=== PATIENT | male | born 1945 | race Caucasian/White ===

== ENCOUNTER 2023-04-12 10:30 | Inpatient (IN) | payer MEDICARE, SELFPAY ==
[2023-04-11] VITALS (11 sets, daily range): BP systolic 125–146; BP diastolic 63–71; PULSE 71–95; RESP 16–18; TEMP 36.8–36.9; O2SAT 90–93; BMI 52.1
--- NOTE | 2023-04-11 16:30 | US_ITS ---
The [address] [address] Patient Name: LUCIANA BUENROSTRO MRN: [id number] date: 1945 Sex: M Assigned Patient Location: MS Current Patient Location: MS Accession/Order Number: [id number] Exam Date: 04/11/2023 16:45 Report Date: 04/11/2023 17:17 At the request of: GEOVANNA FARLEY Procedure: US venous doppler LE BI Ultrasound venous duplex scan right lower extremity CLINICAL: Edema TECHNIQUE: Lan-scale, color-flow, and Spectral Doppler examination of the right lower extremity were performed with and without provocative maneuvers. FINDINGS: Sonographic examination of the right lower extremity deep venous system to include the common femoral, superficial femoral and popliteal veins, demonstrates normal compressibility, color-flow, respiratory variation, and augmentation. The origin and proximal segment of the greater saphenous vein also demonstrates normal compression and color-flow. There is normal color-flow in the peroneal, posterior tibial, and anterior tibial veins. US/US venous doppler LE BI IMPRESSION: 1. No deep venous thrombosis of the right lower extremity. 2. There is evidence of edema in the soft tissues of the calf and ankle. Ultrasound venous duplex scan left lower extremity CLINICAL: Edema TECHNIQUE: Lan-scale, color-flow, and Spectral Doppler examination of the left lower extremity were performed with and without provocative maneuvers. FINDINGS: Sonographic examination of the left lower extremity deep venous system to include the common femoral, superficial femoral and popliteal veins, demonstrates normal compressibility, color-flow, respiratory variation, and augmentation. The origin and proximal segment of the greater saphenous vein also demonstrates normal compression and color-flow. There is normal color-flow in the peroneal, posterior tibial, and anterior tibial veins. IMPRESSION: 1. No deep venous thrombosis of the left lower extremity. 2. There is evidence of edema in the soft tissues of the calf and ankle. Electronically authenticated by: RAFAT FONTAINE Date: 04/11/2023 17:17
[2023-04-11] MEDS: BUMETANIDE 10 MG in 0.9 % SODIUM CHLORIDE 160 ML 2.5 MG IV (17:38)
[2023-04-11 17:58] LABS: Free T3 2.06 pg/mL (2.18-3.98); Magnesium 1.6 mg/dL (1.8-2.4); Troponin I High Sensitivity 9.4 pg/mL (4.0-76.1)
[2023-04-11 17:59] LABS: Thyroid Stimulating Hormone 1.024 uIU/mL (0.358-3.740)
--- NOTE | 2023-04-11 19:42 | P.HP_ITS ---
H&P: HPI History of Present Illness Chief complaint: FLUID OVERLOAD Narrative: Due to call from the family that patient had not consistently been taking all of his diuretics.room They are more on an as-needed basis but legs have been increasing in swelling over the last several days. Recommended to ER for more rapid evaluation. Seen in the ER at an outside facility, given Lasix IV with 1 L of urine output. Discussed with family options for going back to the rehab facility versus continued admission. He has had multiple admissions for this in the past and usually requires a 2 to 3-day hospital stay to improve his diuresis and not affect his kidney function without change in medication Review of Systems ROS Status of ROS 10 or more systems reviewed and unremarkable except as noted in history and below [facility] Medical History (Updated 04/11/23 @ 23:07 by Ernesto Bundy MD) Surgical History (Updated 04/11/23 @ 17:30 by Zahra Caban) Family History (Updated 04/11/23 @ 17:32 by Zahra Caban) Other Family history of CHF (congestive heart failure) Family history of cancer Family history of diabetes mellitus Family history of hypertension Family history of stroke Social History Do you think of yourself as: straight/heterosexual Gender Identity: male Meds Home Medications and Allergies Home Medications Medication Instructions Recorded Confirmed Type acetaminophen 500 mg capsule 1,000 mg PO Q6H PRN fever or pain 04/11/23 04/11/23 History amlodipine 10 mg tablet 10 mg PO DAILY 04/11/23 04/11/23 History apixaban 5 mg tablet (Eliquis) 5 mg PO BID 04/11/23 04/11/23 History aspirin 81 mg capsule 81 mg PO DAILY 04/11/23 04/11/23 History atorvastatin 20 mg tablet 20 mg PO BEDTIME 04/11/23 04/11/23 History bisacodyl 5 mg tablet 5 mg PO BID PRN constipation 04/11/23 04/11/23 History cetirizine 10 mg capsule 10 mg PO DAILY 04/11/23 04/11/23 History cholecalciferol (vitamin D3) 25 2,000 unit PO DAILY 04/11/23 04/11/23 History mcg (1,000 unit) capsule duloxetine 30 mg capsule,delayed 30 mg PO DAILY 04/11/23 04/11/23 History release ferrous sulfate 325 mg (65 mg 325 mg PO DAILY 04/11/23 04/11/23 History iron) tablet (Feosol) glipizide 10 mg tablet 10 mg PO BID 04/11/23 04/11/23 History hydralazine 100 mg tablet 100 mg PO TID 04/11/23 04/11/23 History insulin glargine 100 unit/mL (3 10 unit subcut BID 04/11/23 04/11/23 History mL) subcutaneous pen insulin lispro 100 unit/mL 1 sliding scale dose subcut 04/11/23 04/11/23 History subcutaneous pen (Humalog KwikPen USEASDIRECTD (U-100) Insulin) labetalol 100 mg tablet 100 mg PO BID 04/11/23 04/11/23 History lisinopril 20 mg tablet 20 mg PO DAILY 04/11/23 04/11/23 History metformin 1,000 mg tablet 1,000 mg PO BID 04/11/23 04/11/23 History multivitamin (Daily Multi-Vitamin 1 tab PO DAILY 04/11/23 04/11/23 History tablet) nystatin 100,000 unit/gram topical 1 applic topical DAILY 04/11/23 04/11/23 History powder (Nyamyc) omeprazole 20 mg tablet,delayed 20 mg PO DAILY 04/11/23 04/11/23 History release oxybutynin chloride 5 mg tablet 5 mg PO DAILY 04/11/23 04/11/23 History oxycodone 5 mg tablet 5 mg PO Q12H PRN pain 04/11/23 04/11/23 History pioglitazone 30 mg tablet (Actos) 30 mg PO DAILY 04/11/23 04/11/23 History potassium chloride 10 mEq 20 meq PO DAILY 04/11/23 04/11/23 History tablet,extended release(part/cryst) (Klor-Con M) pregabalin 75 mg capsule (Lyrica) 75 mg PO DAILY 04/11/23 04/11/23 History spironolactone 25 mg tablet 25 mg PO DAILY 04/11/23 04/11/23 History (Aldactone) timolol maleate 0.5 % eye drops 1 drp ophthalmic (eye) DAILY 04/11/23 04/11/23 History Allergies Allergy/AdvReac Type Severity Reaction Status Date / Time Sulfa (Sulfonamide Allergy Mild Verified 04/11/23 17:34 Antibiotics) Exam Constitutional Vital Signs, click to edit/add: Last Vital Signs Temp 98.2 F 04/11/23 17:25 Pulse 95 H 04/11/23 17:25 Resp 16 04/11/23 17:25 BP 146/71 H 04/11/23 17:38 Pulse Ox 90 L 04/11/23 17:25 O2 Del Method Room Air 04/11/23 17:25 Documenting provider has reviewed patient's vital signs: yes Common normals: no apparent distress HENMT Common normals: normocephalic Respiratory Common normals: normal respiratory effort, no retractions and clear to auscultation bilaterally Cardio Common normals: regular rate and no murmurs GI Common normals: Normal to inspection, nondistended, normoactive bowel sounds present Extremity Common normals: abnormal to inspection (3-4+ Edema bilat legs) Assessment and Plan Assessment and Plan (1) Afib: (2) Diabetes: (3) Fluid overload: Plan Fluid with overload-we will plan Bumex drip as this has been effective for him in the past without affecting blood pressure. Or kidney function. Serial labs. NIDDM-poorly controlled-Continue with home medications plus sliding scale Hypertension-continue with home medications History of DVT-On blood thinners currently. Maintain. Hypomagnesemia-May need supplemented Morbid obesity-diet management Start patient office observation-May need inpatient status depending on effectiveness is over the initial Bumex drip. With the extensiveness of his current swelling likely 2 to 3 days will be more logical
[2023-04-11 20:12] LABS: Glucometer 108 mg/dL (74-106)
[2023-04-11] MEDS: FERROUS SULFATE 325 MG TABLET PO (20:33)
[2023-04-11] MEDS: LABETALOL HCL 100 MG TABLET PO (20:33)
[2023-04-11] MEDS: GLIPIZIDE 10 MG TABLET PO (20:33)
[2023-04-11] MEDS: PROSTAT 15 GM PROTEIN/100 CAL 30 ML LIQUID PACKET PO (20:33)
[2023-04-11] MEDS: POTASSIUM CHLORIDE 10 MEQ ER TABLET 20 MEQ PO (20:33)
[2023-04-11] MEDS: APIXABAN 5 MG TABLET PO (20:33)
[2023-04-11] MEDS: ACETAMINOPHEN 500 MG TABLET 1000 MG PO (20:35)
[2023-04-11] MEDS: HYDRALAZINE HCL 50 MG TABLET 100 MG PO (21:30)
[2023-04-11] MEDS: ATORVASTATIN CALCIUM 20 MG TABLET PO (21:30)
[2023-04-11] MEDS: OXYCODONE HCL 5 MG TABLET PO (21:34)
[2023-04-12] VITALS (19 sets, daily range): BP systolic 118–123; BP diastolic 63–65; PULSE 66–90; RESP 18–20; TEMP 36.4–36.9; O2SAT 90–95
[2023-04-12 04:39] LABS: Basophils Percent Auto 0.7 % (0.2-2.0); Eosinophils Absolute Auto 0.2 10^3/uL (0.0-0.7); Eosinophils Percent Auto 2.8 % (0.9-7.0); Hematocrit 27.9 % (42.0-54.0); Hemoglobin 8.9 g/dL (14.0-18.0); Immature Granulocytes Abs Auto 0.02 10^3/uL (0.00-0.03); Immature Granulocytes Pct Auto 0.3 % (0.0-0.5); Lymphocytes Absolute Auto 0.9 10^3/uL (1.2-3.8); Lymphocytes Percent Auto 14.8 % (20.5-60.0); Mean Corpuscular HGB Conc 31.9 g/dL (29.9-35.2); Mean Corpuscular Volume 97.2 fL (80.0-94.0); Monocytes Absolute Auto 0.6 10^3/uL (0.3-0.8); Monocytes Percent Auto 10.6 % (1.7-12.0); Neutrophils Absolute Auto 4.1 10^3/uL (1.4-6.5); Neutrophils Percent Auto 70.8 % (43.0-75.0); Platelet Count 314 10^3/uL (150-450); Red Blood Count 2.87 10^6/uL (4.70-6.10); Red Cell Distribution Width 14.2 % (11.0-15.0); White Blood Count 5.8 10^3/uL (4.0-11.0)
[2023-04-12 05:09] LABS: Anion Gap 12.3; BUN Creatinine Ratio 24.1; Calcium 9.4 mg/dL (8.5-10.1); Carbon Dioxide 30.4 mmol/L (21.0-32.0); Chloride 103 mmol/L (98-107); Estimated GFR (African America 59 (>=60); Estimated GFR (Non-African Ame 49 (>=60); Glucose 127 mg/dL (74-106); Magnesium 1.4 mg/dL (1.8-2.4); Potassium 4.7 mmol/L (3.5-5.1); Sodium 141 mmol/L (136-145)
[2023-04-12] MEDS: HYDRALAZINE HCL 50 MG TABLET 100 MG PO ×3 (05:44→21:26)
[2023-04-12] MEDS: OMEPRAZOLE 20 MG CAPSULE.DR PO (05:44)
[2023-04-12] MEDS: LIOTHYRONINE SODIUM 5 MCG TABLET PO (06:44)
--- NOTE | 2023-04-12 06:58 | CA_ITS ---
Patient: LUCIANA BUENROSTRO Exam Date: 04/12/2023 : 1945 Gender:M Ordering : DR GEOVANNA FARLEY . Admission #: [id number] Family : Order #: [id number] CLICK HERE TO VIEW EXAM ECHOCARDIOGRAM REPORT PROCEDURE: CA ECHO DOPPLER COMPLETE INDICATIONS: Dyspnea, edema, congestive heart failure, atrial fibrillation, hypertension COMPARISON: None. DESCRIPTION: COMPLETE ECHOCARDIOGRAM Real-time transthoracic echocardiography with 2D, M-mode, spectral and color flow Doppler performed. QUALITY: Technical quality was adequate. LEFT VENTRICLE: Normal chamber size. Mild concentric left ventricular hypertrophy. Normal systolic function. LV EF: Normal left ventricular ejection fraction, ( 55%). DIASTOLIC: Not adequately assessed due to heart rhythm. ATRIAL SEPTUM: Visually appears intact. LEFT ATRIUM: Severe dilatation. RIGHT ATRIUM: Moderate dilatation. RIGHT VENTRICLE: Mild dilatation. Normal systolic function. TRICUSPID VALVE: Normal mobility and thickness. No stenosis with trivial regurgitation. Unable to assess right-sided pressures due to lack of measurable tricuspid regurgitation. MITRAL VALVE: Normal mobility and thickness. No evidence of mitral valve stenosis. Mild mitral annular calcification. Mild mitral regurgitation. AORTIC VALVE: Normal trileaflet appearance. Mildly calcified aortic valve. Mildly diminished mobility. No evidence of aortic valve stenosis. DVI 0.7. No aortic regurgitation. AORTIC ROOT: Normal diameter and appearance. PULMONIC VALVE: Normal thickness and mobility. No stenosis. No regurgitation. PERICARDIUM: No evidence of pericardial effusion. IVC: IVC is dilated (2.3 cm) with no collapse. PLEURA: CONCLUSION: 1. Mild concentric left ventricular hypertrophy with normal systolic function. LVEF is 55%. 2. Mild right ventricular dilatation with normal systolic function. 3. Moderate to severe biatrial dilatation. 4. Mild mitral regurgitation. 5. Unable to assess right-sided pressures due to lack of measurable tricuspid regurgitation. Adult Echocardiography Procedure Report Left Ventricle LVEDD (3.7 - 5.6 cm): 5.72 cm LVESD (2.2 - 4.0 cm): 4.44 cm LVIVS thickness (0.6 - 1.2 cm): 1.10 cm LVPW thickness (0.5 - 1.0 cm): 1.18 cm LVOT Max Gradient: 3.86 mm[Hg], 3.91 mm[Hg] LVOT Area (cm2): 0.99 m/s Peak Velocity (LVOT): 0.98 m/s, 0.99 m/s Mean Velocity (LVOT): 0.72 m/s LVOT Diameter 2.08 cm Left Atrium LA Volume Index (2D A2C): 49.95 ml/m2 Left Atrium Systolic Dimension: 5.16 cm Mitral Valve Mitral Valve E-Wave Peak Velocity: 1.20 m/s Right Ventricle Aorta AO Root Diam: 3.53 cm Aortic Valve AoV Area (Peak Omar): 2.67 cm2, 2.45 cm2, 2.95 cm2 AoV Area (VTI): 2.96 cm2, 2.72 cm2, 3.25 cm2 Peak Velocity(Antegrade Flow): 1.37 m/s, 1.15 m/s Peak Gradient(Antegrade Flow): 7.52 mm[Hg], 5.25 mm[Hg] Mean Velocity(Antegrade Flow): 0.90 m/s, 0.76 m/s Mean Gradient(Antegrade Flow): 3.69 mm[Hg], 2.67 mm[Hg] Velocity Time Integral: 28.23 cm, 23.31 cm Tricuspid Valve Pulmonic Valve Peak Velocity: 1.08 m/s Peak Gradient: 4.16 mm[Hg], 5.27 mm[Hg] Right Atrium Right Atrium Systolic Pressure: 71.57 ml, 71.57 ml Dictated by: Saul Gonzalez M.D. on 04/12/2023 at 14:15 Approved by: Saul Gonzalez M.D. on 04/12/2023 at 14:19
[2023-04-12] MEDS: PROSTAT 15 GM PROTEIN/100 CAL 30 ML LIQUID PACKET PO ×2 (08:42→21:27)
[2023-04-12] MEDS: MAGNESIUM OXIDE 400 MG TABLET PO ×2 (08:42→21:26)
[2023-04-12] MEDS: POTASSIUM CHLORIDE 10 MEQ ER TABLET 20 MEQ PO (08:43)
[2023-04-12] MEDS: AMLODIPINE BESYLATE 5 MG TABLET 10 MG PO (08:43)
[2023-04-12] MEDS: LABETALOL HCL 100 MG TABLET PO ×2 (08:43→21:26)
[2023-04-12] MEDS: LISINOPRIL 20 MG TABLET PO (08:43)
[2023-04-12] MEDS: MULTIVITAMIN TABLET 1 TAB PO (08:43)
[2023-04-12] MEDS: GLIPIZIDE 10 MG TABLET PO ×2 (08:43→21:26)
[2023-04-12] MEDS: SPIRONOLACTONE 25 MG TABLET PO (08:43)
[2023-04-12] MEDS: CHOLECALCIFEROL (VITAMIN D3) 25 MCG/1,000 UNITS TABLET 50 MCG PO (08:43)
[2023-04-12] MEDS: FERROUS SULFATE 325 MG TABLET PO ×2 (08:43→21:26)
[2023-04-12] MEDS: OXYBUTYNIN chloride 5 MG TABLET PO (08:43)
[2023-04-12] MEDS: TIMOLOL MALEATE 0.5% OP SOL 100 DROPS/5 ML BOTTLE 1 DROP OP (08:44)
[2023-04-12] MEDS: APIXABAN 5 MG TABLET PO ×2 (08:44→21:26)
[2023-04-12] MEDS: CETIRIZINE HCL 10 MG TABLET PO (08:44)
[2023-04-12] MEDS: ASPIRIN 81 MG TAB.CHEW PO (08:44)
[2023-04-12] MEDS: PREGABALIN 75 MG CAPSULE PO (08:44)
[2023-04-12] MEDS: DULOXETINE HCL 30 MG CAPSULE.DR PO (08:44)
--- NOTE | 2023-04-12 08:44 | CM.NOTE ---
Medicare Outpatient Observation Notice discussed with pt, pt verbalizes understanding and signs paper. Original given to pt and copy placed on pt's chart.
[2023-04-12] MEDS: INSULIN DETEMIR 300 UNIT/3 ML INSULN.PEN 10 UNIT SUBQ ×2 (08:45→21:26)
--- NOTE | 2023-04-12 10:12 | CM.NOTE ---
Rounds made with Dr. Bundy, no discharge today. Continue diuretics and possible discharge tomorrow. Changing pt to inpt status today.
--- NOTE | 2023-04-12 10:24 | SWNOTE1 ---
RADHA spoke with case management and pt is from [facility] in [place] and he is there skilled. RADHA called [facility] to confirm and sent updates. RADHA spoke with Gwendolyn at [facility] and someone from [facility] will be out to visit pt today.
--- NOTE | 2023-04-12 10:30 | P.PN_ITS ---
Progress Note: Subjective Subjective Interval history: Good output but patient still feels a little bit difficulty with his breathing and leg still feels tight to him, compared to his baseline. Exam Constitutional Vital Signs, click to edit/add: Last Vital Signs Temp 98.3 F 04/12/23 05:51 Pulse 66 04/12/23 10:14 Resp 18 04/12/23 05:51 BP 122/65 04/12/23 05:51 Pulse Ox 92 L 04/12/23 05:51 O2 Del Method Room Air, Home BIPAP / CPAP 04/12/23 05:51 Documenting provider has reviewed patient's vital signs: yes Common normals: no apparent distress HENMT Common normals: normocephalic Respiratory Common normals: normal respiratory effort, no retractions and clear to auscultation bilaterally Cardio Common normals: regular rate and no murmurs GI Common normals: Normal to inspection, nondistended, normoactive bowel sounds present Extremity Common normals: abnormal to inspection (3-4+ Edema bilat legs) Progress Note: Objective Labs Labs: Short CBC 04/12/23 Range/Units 04:08 WBC 5.8 (4.0-11.0) 10^3/uL Hgb 8.9 L (14.0-18.0) g/dL Hct 27.9 L (42.0-54.0) % Plt Count 314 (150-450) 10^3/uL BMP 04/12/23 04:08 Sodium 141 Potassium 4.7 Chloride 103 Carbon Dioxide 30.4 BUN 34.0 H Creatinine 1.41 H Glucose 127 H Calcium 9.4 Progress Note: A&P Assessment and Plan (1) Afib: (2) Diabetes: (3) Fluid overload: Plan Fluid with overload-Bumex drip with good results but still has some significant edema. We will repeat Bumex drip today. Likely transfer back to rehab tomorrow. NIDDM-poorly controlled-Continue with home medications plus sliding scale Hypertension-continue with home medications History of DVT-On blood thinners currently.? Maintain. Hypomagnesemia- supplemented Morbid obesity-diet management patient has a extensive right foot deformity. Consult to podiatry. patient require more than 2 midnight stay with continued medical management.Change patient to inpatient status.
--- NOTE | 2023-04-12 11:09 | SWNOTE1 ---
SW met with pt to discuss dc needs. Pt is from [facility] and is there skilled. Pt did voice it is going pretty well, just having trouble with using his foot. He stated he took a few steps today. Pt did voice his plan is to return to get some more strengthening before going home. At this time pt has no concerns or needs. SW to follow as needed.
[2023-04-12 11:11] LABS: Glucometer 138 mg/dL (74-106)
[2023-04-12] MEDS: BUMETANIDE 10 MG in 0.9 % SODIUM CHLORIDE 160 ML 20 MG IV (11:45)
--- NOTE | 2023-04-12 11:57 | CM.NOTE ---
Pt changed to inpatient status today. Important Message From Medicare discussed with pt, pt verbalizes understanding and signs paper. Original given to pt and copy placed on pt's chart.
--- NOTE | 2023-04-12 12:19 | PC.NURSE ---
right lower leg
--- NOTE | 2023-04-12 12:20 | PHOTOS ---
left lower leg
[2023-04-12] MEDS: OXYCODONE HCL 5 MG TABLET PO (13:36)
--- NOTE | 2023-04-12 14:36 | PM.PODCN1 ---
[facility] - Podiatry Data of Consult Patient: known to practice within the last 3 years Consult date: 04/12/23 Requesting physician: Ernesto Bundy MD Primary care provider: Ernesto Bundy MD Consult Narrative Reason for consult: right ankle deformity, bilateral edema Narrative: Mr. Dominguez is a pleasant 77-year-old male presents to [facility] for CHF exacerbation/fluid overload. Responding well to diuresis thus far. Podiatry consulted for evaluation of right ankle deformity. Patient states that he saw Dr. Solorio about 2 years ago for this issue and was counseled on reconstructive surgery to address his ankle and hindfoot. Patient states that he elected not to move forward with the procedure at that time. He then fell back in January 2023 and suffered left hip and wrist fractures. Has been in SNF for rehab since then. States that the right ankle turns outwards and causes pain and discomfort, limiting his physical therapy. He is also experiencing increased swelling in the bilateral legs in accordance with his fluid overload at this time. Is complaining of a wound on the right lower leg which is the source of most of his pain. No complaints of pain to left lower extremity denies any other acute lower extremity complaints at this time. denied any constitutional symptoms at time of visit. cc:: CC: Ernesto Bundy MD Review of Systems ROS Narrative Bilateral leg swelling, right leg wound Status of ROS 10 or more systems reviewed and unremarkable except as noted in history and below [facility] Medical History (Updated 04/12/23 @ 15:16 by Kody Dahl DPM) Surgical History (Updated 04/11/23 @ 17:30 by Zahra Caban) Family History (Updated 04/11/23 @ 17:32 by Zahra Caban) Other Family history of CHF (congestive heart failure) Family history of cancer Family history of diabetes mellitus Family history of hypertension Family history of stroke Social History Do you think of yourself as: straight/heterosexual Gender Identity: male Exam Narrative Exam Narrative: Vascular: 2+ pitting edema noted bilateral lower extremities. DP PT pulses faintly palpable bilaterally secondary to edema. CFT brisk to all digits. No erythema or ecchymosis. Hemosiderin staining bilateral lower extremities Neuro: Light touch gross station intact bilateral. Protective and station intact bilateral. Derm: Partial-thickness ulceration right distal anteromedial leg. Measured approximately 3.5 x 4.0 x 0.1 cm. Granular in nature with mild serous exudate. No probing tunneling or undermining, no fluctuance crepitus or bogginess. Multiple punctate wound islands to right lower extremity anterior and lateral. These are also granular in nature without any signs of infection. Musculoskeletal: Muscle strength 5/5 for all 4 pedal muscle groups. Active range of motion of all digits present. Right ankle with moderate pes planovalgus. Right ankle joint range of motion is significantly limited, nearly rigid. Right subtalar joint range of motion is significantly limited, nearly rigid with mild eversion of the hindfoot at rest. No other gross deformities noted. Palpatory tenderness elicited to the above described wounds. No palpatory tenderness elicited to the right ankle. Left ankle exam within normal limits. 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 All questions answered to patient's satisfaction. Labs reviewed. X-rays ordered for right ankle and foot. We will review his x-rays once taken. Right lower extremity ulcerations appear to be result of venous stasis. No acute signs of infection. Recommend continued dressing with Aquacel 4 x 4 gauze ABD To right ankle wound and compressive López dressing Bilaterally. Bilateral lower extremity edema appears to be responding well to compressive therapy. Would benefit from lymphedema therapy as outpatient. Discussed with him that in the short-term he would likely achieve the most benefit from conservative management including OTC versus custom bracing for the right ankle and hindfoot. Discussed that surgical options would involve an extensive reconstruction of his hindfoot and ankle for which he would need to be medically optimized and recovered from his recent fall. Follow-up as outpatient wound center for local wound care, lymphedema clinic, and custom bracing. We will continue to follow while in house.
--- NOTE | 2023-04-12 14:56 | XR_ITS ---
The [address] [address] Patient Name: LUCIANA BUENROSTRO MRN: [id number] date: 1945 Sex: M Assigned Patient Location: MS Current Patient Location: MS Accession/Order Number: [id number] Exam Date: 04/12/2023 15:21 Report Date: 04/12/2023 16:20 At the request of: BALJINDER FUENTES Procedure: XR ankle RT min 3V EXAM: XR ankle RT min 3V HISTORY: arthritis COMPARISON: None. TECHNIQUE: 3 view study FINDINGS: Osteopenia generally is noted, consistent with age. There is deformity of the calcaneus with flattening of Boehler's angle. The distal tibia, distal fibula, and talus are intact. There is joint space narrowing at the tibiotalar articulation with associated early posterior osteophytosis. Plantar and posterior calcaneal enthesophytes are noted. Soft tissue swelling is noted, more marked medially than laterally. XR/XR ankle RT min 3V IMPRESSION: Deformity of the calcaneus consistent with prior fracture. Degenerative changes at the ankle mortise, likely posttraumatic. Calcaneal enthesophytes. Electronically authenticated by: Shey WHALEN Date: 04/12/2023 16:20
--- NOTE | 2023-04-12 15:51 | PM.CN ---
Consult Note: [facility] Data of Consult Consult date: 04/12/23 Requesting Physician: Ernesto Bundy MD Primary Care Provider: Ernesto Bundy MD Consult Narrative Reason for consult: BLE edema and open ulcers cc:: CC: Ernesto Bundy MD [facility] Medical History (Updated 04/12/23 @ 15:16 by Kody Dahl DPM) Surgical History (Updated 04/11/23 @ 17:30 by Zahra Caban) Family History (Updated 04/11/23 @ 17:32 by Zahra Caban) Other Family history of CHF (congestive heart failure) Family history of cancer Family history of diabetes mellitus Family history of hypertension Family history of stroke Social History Do you think of yourself as: straight/heterosexual Gender Identity: male Meds Home Medications and Allergies Home Medications Medication Instructions Recorded Confirmed Type acetaminophen 500 mg capsule 1,000 mg PO Q6H PRN fever or pain 04/11/23 04/11/23 History amlodipine 10 mg tablet 10 mg PO DAILY 04/11/23 04/11/23 History apixaban 5 mg tablet (Eliquis) 5 mg PO BID 04/11/23 04/11/23 History aspirin 81 mg capsule 81 mg PO DAILY 04/11/23 04/11/23 History atorvastatin 20 mg tablet 20 mg PO BEDTIME 04/11/23 04/11/23 History bisacodyl 5 mg tablet 5 mg PO BID PRN constipation 04/11/23 04/11/23 History cetirizine 10 mg capsule 10 mg PO DAILY 04/11/23 04/11/23 History cholecalciferol (vitamin D3) 25 2,000 unit PO DAILY 04/11/23 04/11/23 History mcg (1,000 unit) capsule duloxetine 30 mg capsule,delayed 30 mg PO DAILY 04/11/23 04/11/23 History release ferrous sulfate 325 mg (65 mg 325 mg PO DAILY 04/11/23 04/11/23 History iron) tablet (Feosol) glipizide 10 mg tablet 10 mg PO BID 04/11/23 04/11/23 History hydralazine 100 mg tablet 100 mg PO TID 04/11/23 04/11/23 History insulin glargine 100 unit/mL (3 10 unit subcut BID 04/11/23 04/11/23 History mL) subcutaneous pen insulin lispro 100 unit/mL 1 sliding scale dose subcut 04/11/23 04/11/23 History subcutaneous pen (Humalog KwikPen USEASDIRECTD (U-100) Insulin) labetalol 100 mg tablet 100 mg PO BID 04/11/23 04/11/23 History lisinopril 20 mg tablet 20 mg PO DAILY 04/11/23 04/11/23 History metformin 1,000 mg tablet 1,000 mg PO BID 04/11/23 04/11/23 History multivitamin (Daily Multi-Vitamin 1 tab PO DAILY 04/11/23 04/11/23 History tablet) nystatin 100,000 unit/gram topical 1 applic topical DAILY 04/11/23 04/11/23 History powder (Nyamyc) omeprazole 20 mg tablet,delayed 20 mg PO DAILY 04/11/23 04/11/23 History release oxybutynin chloride 5 mg tablet 5 mg PO DAILY 04/11/23 04/11/23 History oxycodone 5 mg tablet 5 mg PO Q12H PRN pain 04/11/23 04/11/23 History pioglitazone 30 mg tablet (Actos) 30 mg PO DAILY 04/11/23 04/11/23 History potassium chloride 10 mEq 20 meq PO DAILY 04/11/23 04/11/23 History tablet,extended release(part/cryst) (Klor-Con M) pregabalin 75 mg capsule (Lyrica) 75 mg PO DAILY 04/11/23 04/11/23 History spironolactone 25 mg tablet 25 mg PO DAILY 04/11/23 04/11/23 History (Aldactone) timolol maleate 0.5 % eye drops 1 drp ophthalmic (eye) DAILY 04/11/23 04/11/23 History Allergies Allergy/AdvReac Type Severity Reaction Status Date / Time Sulfa (Sulfonamide Allergy Mild Verified 04/11/23 17:34 Antibiotics) Exam Constitutional Vital Signs, click to edit/add: Last Vital Signs Temp 97.5 F L 04/12/23 13:28 Pulse 75 04/12/23 13:51 Resp 18 04/12/23 05:51 BP 118/63 04/12/23 13:36 Pulse Ox 91 L 04/12/23 13:28 O2 Del Method Room Air 04/12/23 10:55 Results Labs Labs: Short CBC 04/12/23 Range/Units 04:08 WBC 5.8 (4.0-11.0) 10^3/uL Hgb 8.9 L (14.0-18.0) g/dL Hct 27.9 L (42.0-54.0) % Plt Count 314 (150-450) 10^3/uL BMP 04/12/23 04:08 Sodium 141 Potassium 4.7 Chloride 103 Carbon Dioxide 30.4 BUN 34.0 H Creatinine 1.41 H Glucose 127 H Calcium 9.4 Assessment and Plan Assessment and Plan (1) Venous stasis ulcer of ankle limited to breakdown of skin: Assessment and Plan: Patient known to wound clinic. Seen today at 1240PM for wound assessment and dressing change. Patient with homer wraps bilaterally in place. Removed dressings. Left leg is completely healed. Area is wrinkled and dry. Flaky skin noted. Left leg washed and dried. Wrapped with kerlix and homer wrap to continue compression at this time. RLE with open ulceration to medial lower leg/ankle area. Superficial and draining serous fluid. Has scattered bloody scabbed areas on RLE that are intact. Right leg washed and calcium alginate applied to open area. Cover with gauze and kerlix. Homer wrap reapplied. Patient reports that he is having pain with movement of ankle to right side. Patient reports that his foot is turning out and he is having difficulty ambulating. Will report this to Dr. Solorio and podiatry with come and evaluate. Notes and orders sent to Dr Solorio for review. Plan Patient examined and evaluated and all findings were discussed with the patient. All questions answered to patient's satisfaction. Labs reviewed. X-rays ordered for right ankle and foot. We will review his x-rays once taken. Right lower extremity ulcerations appear to be result of venous stasis. No acute signs of infection. Recommend continued dressing with Aquacel 4 x 4 gauze ABD To right ankle wound and compressive López dressing Bilaterally. Bilateral lower extremity edema appears to be responding well to compressive therapy. Would benefit from lymphedema therapy as outpatient. Discussed with him that in the short-term he would likely achieve the most benefit from conservative management including OTC versus custom bracing for the right ankle and hindfoot. Discussed that surgical options would involve an extensive reconstruction of his hindfoot and ankle for which he would need to be medically optimized and recovered from his recent fall. Follow-up as outpatient wound center for local wound care, lymphedema clinic, and custom bracing. We will continue to follow while in house.
[2023-04-12 16:33] LABS: Glucometer 102 mg/dL (74-106)
[2023-04-12] MEDS: ACETAMINOPHEN 500 MG TABLET 1000 MG PO (18:37)
[2023-04-12 20:35] LABS: Glucometer 216 mg/dL (74-106)
[2023-04-12] MEDS: ATORVASTATIN CALCIUM 20 MG TABLET PO (21:26)
[2023-04-12] MEDS: INSULIN ASPART 300 UNIT/3 ML PEN SUBQ (21:27)
[2023-04-13] VITALS (11 sets, daily range): BP systolic 112; BP diastolic 70; PULSE 50–77; RESP 20; TEMP 37.2; O2SAT 91–95
[2023-04-13] MEDS: HYDRALAZINE HCL 50 MG TABLET 100 MG PO (05:31)
[2023-04-13] MEDS: LIOTHYRONINE SODIUM 5 MCG TABLET PO (05:31)
[2023-04-13] MEDS: OMEPRAZOLE 20 MG CAPSULE.DR PO (05:31)
[2023-04-13 05:36] LABS: Basophils Percent Auto 0.7 % (0.2-2.0); Eosinophils Absolute Auto 0.2 10^3/uL (0.0-0.7); Eosinophils Percent Auto 3.1 % (0.9-7.0); Hematocrit 27.9 % (42.0-54.0); Hemoglobin 9.1 g/dL (14.0-18.0); Immature Granulocytes Abs Auto 0.02 10^3/uL (0.00-0.03); Immature Granulocytes Pct Auto 0.4 % (0.0-0.5); Lymphocytes Percent Auto 17.5 % (20.5-60.0); Mean Corpuscular HGB Conc 32.6 g/dL (29.9-35.2); Mean Corpuscular Hemoglobin 30.5 pg (25.9-34.0); Mean Corpuscular Volume 93.6 fL (80.0-94.0); Mean Platelet Volume 9.9 fL (9.5-13.5); Monocytes Absolute Auto 0.7 10^3/uL (0.3-0.8); Monocytes Percent Auto 12.1 % (1.7-12.0); Neutrophils Absolute Auto 3.7 10^3/uL (1.4-6.5); Neutrophils Percent Auto 66.2 % (43.0-75.0); Platelet Count 345 10^3/uL (150-450); Red Blood Count 2.98 10^6/uL (4.70-6.10); Red Cell Distribution Width 14.1 % (11.0-15.0); White Blood Count 5.5 10^3/uL (4.0-11.0)
[2023-04-13 06:08] LABS: Anion Gap 12.4; BUN Creatinine Ratio 30.6; Calcium 9.2 mg/dL (8.5-10.1); Chloride 98 mmol/L (98-107); Estimated GFR (African America 52 (>=60); Estimated GFR (Non-African Ame 43 (>=60); Glucose 167 mg/dL (74-106); Magnesium 1.5 mg/dL (1.8-2.4); Potassium 4.4 mmol/L (3.5-5.1); Sodium 139 mmol/L (136-145)
[2023-04-13] MEDS: ASPIRIN 81 MG TAB.CHEW PO (08:47)
[2023-04-13] MEDS: CHOLECALCIFEROL (VITAMIN D3) 25 MCG/1,000 UNITS TABLET 50 MCG PO (08:47)
[2023-04-13] MEDS: OXYBUTYNIN chloride 5 MG TABLET PO (08:47)
[2023-04-13] MEDS: CETIRIZINE HCL 10 MG TABLET PO (08:47)
[2023-04-13] MEDS: AMLODIPINE BESYLATE 5 MG TABLET 10 MG PO (08:47)
[2023-04-13] MEDS: PREGABALIN 75 MG CAPSULE PO (08:47)
[2023-04-13] MEDS: DULOXETINE HCL 30 MG CAPSULE.DR PO (08:48)
[2023-04-13] MEDS: APIXABAN 5 MG TABLET PO (08:48)
[2023-04-13] MEDS: POTASSIUM CHLORIDE 10 MEQ ER TABLET 20 MEQ PO (08:48)
[2023-04-13] MEDS: MULTIVITAMIN TABLET 1 TAB PO (08:48)
[2023-04-13] MEDS: LABETALOL HCL 100 MG TABLET PO (08:48)
[2023-04-13] MEDS: PROSTAT 15 GM PROTEIN/100 CAL 30 ML LIQUID PACKET PO (08:48)
[2023-04-13] MEDS: LISINOPRIL 20 MG TABLET PO (08:48)
[2023-04-13] MEDS: SPIRONOLACTONE 25 MG TABLET PO (08:48)
[2023-04-13] MEDS: FERROUS SULFATE 325 MG TABLET PO (08:48)
[2023-04-13] MEDS: METFORMIN HCL 500 MG TABLET 1000 MG PO (08:48)
[2023-04-13] MEDS: MAGNESIUM OXIDE 400 MG TABLET PO (08:48)
[2023-04-13] MEDS: GLIPIZIDE 10 MG TABLET PO (08:48)
[2023-04-13] MEDS: INSULIN DETEMIR 300 UNIT/3 ML INSULN.PEN 10 UNIT SUBQ (08:49)
[2023-04-13] MEDS: TIMOLOL MALEATE 0.5% OP SOL 100 DROPS/5 ML BOTTLE 1 DROP OP (08:50)
--- NOTE | 2023-04-13 09:17 | PM.PN ---
Progress Note: Subjective Subjective Interval history: Patient seen and evaluated at bedside resting comfortably this AM. States pain in the right leg has improved since our visit yesterday. Denies any acute events overnight. Feels the swelling in both legs is improving since admission. States he believes he is being discharged back to rehab today. Denied any other acute lower extremity complaints at time of visit. Denied any constitutional symptoms today. Exam Narrative Exam Narrative: BLE dressings left CDI. Vascular: 2+ pitting edema noted bilateral lower extremities. CFT brisk to all digits. No erythema or ecchymosis Proximal or distal dressing.. No ascending lymphangitis. Neuro: Light touch gross station intact bilateral. Protective sensation intact bilateral. Derm: Dressings left clean dry and intact. No open wound lesions proximal or distal dressings. Musculoskeletal: Muscle strength 5/5 for all 4 pedal muscle groups. Mild palpatory tenderness elicited to right ankle ulceration site.No other changes from previous exam. Constitutional Vital Signs, click to edit/add: Last Vital Signs Temp 99.0 F 04/13/23 05:30 Pulse 58 L 04/13/23 08:11 Resp 20 04/13/23 05:30 BP 112/70 04/13/23 05:31 Pulse Ox 91 L 04/13/23 05:30 O2 Del Method Room Air 04/13/23 05:30 Progress Note: Objective Labs Labs: Short CBC 04/13/23 Range/Units 04:50 WBC 5.5 (4.0-11.0) 10^3/uL Hgb 9.1 L (14.0-18.0) g/dL Hct 27.9 L (42.0-54.0) % Plt Count 345 (150-450) 10^3/uL BMP 04/13/23 04:50 Sodium 139 Potassium 4.4 Chloride 98 Carbon Dioxide 33.0 H BUN 48.0 H Creatinine 1.57 H Glucose 167 H Calcium 9.2 Progress Note: A&P Assessment and Plan (1) Venous stasis ulcer of ankle limited to breakdown of skin: (2) Degenerative arthritis of right foot: (3) 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 All questions answered patient's satisfaction. Labs and imaging reviewed. Reviewed x-ray findings with the patient. 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 Given that these were nonweightbearing films cannot accurately evaluate the exact degree of arthritis or deformity however significant arthrosis throughout the subtalar joint is appreciated with some deformity of the calcaneus likely from a prior injury. Discussed again that in the short-term [id number] versus custom bracing would be his best option to provide stability while he rehabs his hip and wrist. Continue right ankle wound dressings with Aquacel, 4 x 4 gauze, ABD. Single layer compression dressing bilateral. Follow-up in 1 week in wound center for local wound care, lymphedema evaluation and bracing options.
--- NOTE | 2023-04-13 09:26 | P.DS_ITS ---
DS: Providers Provider Date of admission: 04/12/23 10:30 Primary care physician: Ernesto Bundy MD Consults: 04/11/23 15:14 Occupational Therapy Eval and Treat Routine Physical Therapy Eval and Treat Routine 04/11/23 19:23 Consult to Wound Care Routine Consulting Provider: Josue Solorio 04/12/23 10:29 Consult to Podiatry Routine Consulting Provider: Josue Solorio DS: Diagnosis Discharge Diagnosis (1) Venous stasis ulcer of ankle limited to breakdown of skin: Plan Fluid with overload-Bumex drip with good results but still has some significant edema.? We will repeat Bumex drip today.? Likely transfer back to rehab tomorrow. NIDDM-poorly controlled-Continue with home medications plus sliding scale Hypertension-continue with home medications History of DVT-On blood thinners currently.? Maintain. Hypomagnesemia- supplemented Morbid obesity-diet management patient has a extensive right foot deformity.? Consult to podiatry.? patient require more than 2 midnight stay with continued medical management.Change patient to inpatient status. DS: Summary Hospital Course Hospital Course: Patient was seen and evaluated in the emergency room at outside facility. 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 He has had issues with this in the past. Usually is a 2 to 3-day hospital stay with IV medications. Patient was given Bumex drip. He did have some improvement in his edema, Bumex drip was repeated and he has diuresed over 7 L. He is breathing feels better. He feels like his legs are less tight. Less heavy. This should overall improve his ability to rehab. He does need continued work-up for strengthening and conditioning. So will refer back to rehab. He is also going to need extensive therapy and probable surgical evaluation of his right foot. Medications see list. I will follow patient upon discharge from rehab Time Spent with Patient Time attestation: Total time spent providing and/or coordinating discharge services: Exam Constitutional Vital Signs, click to edit/add: Last Vital Signs Temp 99.0 F 04/13/23 05:30 Pulse 58 L 04/13/23 08:11 Resp 20 04/13/23 05:30 BP 112/70 04/13/23 05:31 Pulse Ox 91 L 04/13/23 05:30 O2 Del Method Room Air 04/13/23 05:30 Documenting provider has reviewed patient's vital signs: yes Common normals: no apparent distress HENMT Common normals: normocephalic Respiratory Common normals: normal respiratory effort, no retractions and clear to auscultation bilaterally Cardio Common normals: regular rate and no murmurs GI Common normals: Normal to inspection, nondistended, normoactive bowel sounds present Extremity Common normals: abnormal to inspection (3-4+ Edema bilat legs) DS: Data Data Completed and Pending Labs on day of discharge: Labs from last 24 hours 04/13/23 04/12/23 04/12/23 04:50 20:34 16:32 WBC 5.5 RBC 2.98 L Hgb 9.1 L Hct 27.9 L MCV 93.6 MCH 30.5 MCHC 32.6 RDW 14.1 Plt Count 345 MPV 9.9 Neut % (Auto) 66.2 Lymph % (Auto) 17.5 L Davie % (Auto) 12.1 H Eos % (Auto) 3.1 Baso % (Auto) 0.7 Neut # (Auto) 3.7 Lymph # (Auto) 1.0 L Davie # (Auto) 0.7 Eos # (Auto) 0.2 Baso # (Auto) 0.0 Abs Immat Gran (auto) 0.02 Imm/Tot Granulo (auto) 0.4 Sodium 139 Potassium 4.4 Chloride 98 Carbon Dioxide 33.0 H Anion Gap 12.4 BUN 48.0 H Creatinine 1.57 H Est GFR ( Amer) 52 L Est GFR (Non-Af Amer) 43 L BUN/Creatinine Ratio 30.6 Glucose 167 H Calcium 9.2 Magnesium 1.5 L NT-Pro-B Natriuret Pep 1658.0 POC Glucose 216 H 102 04/12/23 11:09 WBC RBC Hgb Hct MCV MCH MCHC RDW Plt Count MPV Neut % (Auto) Lymph % (Auto) Davie % (Auto) Eos % (Auto) Baso % (Auto) Neut # (Auto) Lymph # (Auto) Davie # (Auto) Eos # (Auto) Baso # (Auto) Abs Immat Gran (auto) Imm/Tot Granulo (auto) Sodium Potassium Chloride Carbon Dioxide Anion Gap BUN Creatinine Est GFR ( Amer) Est GFR (Non-Af Amer) BUN/Creatinine Ratio Glucose Calcium Magnesium NT-Pro-B Natriuret Pep POC Glucose 138 H Discharge Plan Discharge Disposition: Xfer SNF Discharge Medications: New furosemide 40 mg Tablet 40 mg PO QD Qty: 30 11RF liothyronine 5 mcg Tablet 5 mcg PO ACB Qty: 30 11RF magnesium oxide 400 mg (241.3 mg magnesium) Tablet 400 mg PO BID Qty: 60 11RF ferrous sulfate 325 mg (65 mg iron) Tablet 325 mg PO BID Qty: 60 11RF Pro-Stat Sugar Free 15 gram- 100 kcal/30 mL Liquid In Packet 30 ea PO BID Qty: 2880 11RF Continued amlodipine 10 mg tablet 10 mg PO DAILY Eliquis 5 mg tablet 5 mg PO BID atorvastatin 20 mg tablet 20 mg PO BEDTIME duloxetine 30 mg capsule,delayed release(DR/EC) 30 mg PO DAILY glipizide 10 mg tablet 10 mg PO BID hydralazine 100 mg tablet 100 mg PO TID labetalol 100 mg tablet 100 mg PO BID metformin 1,000 mg tablet 1,000 mg PO BID potassium chloride [Klor-Con M10] 10 mEq tablet,ER particles/crystals 20 meq PO DAILY timolol maleate 0.5 % drops 1 drp OPHTHALMIC (EYE) DAILY acetaminophen 500 mg capsule 1,000 mg PO Q6H PRN (Reason: fever or pain) aspirin 81 mg capsule 81 mg PO DAILY bisacodyl 5 mg tablet 5 mg PO BID PRN (Reason: constipation) cetirizine 10 mg capsule 10 mg PO DAILY cholecalciferol (vitamin D3) 25 mcg (1,000 unit) capsule 2,000 unit PO DAILY insulin lispro [Humalog KwikPen Insulin] 100 unit/mL insulin pen 1 sliding scale dose subcut USEASDIRECTD insulin glargine 100 unit/mL (3 mL) insulin pen 10 unit subcut BID ferrous sulfate [Feosol] 325 mg (65 mg iron) tablet 325 mg PO DAILY lisinopril 20 mg tablet 20 mg PO DAILY pregabalin [Lyrica] 75 mg capsule 75 mg PO DAILY multivitamin [Daily Multi-Vitamin] Tablet 1 tab PO DAILY nystatin [Nyamyc] 100,000 unit/gram powder 1 applic topical DAILY omeprazole 20 mg tablet,delayed release (DR/EC) 20 mg PO DAILY oxybutynin chloride 5 mg tablet 5 mg PO DAILY oxycodone 5 mg tablet 5 mg PO Q12H PRN (Reason: pain) spironolactone [Aldactone] 25 mg tablet 25 mg PO DAILY Discontinued pioglitazone [Actos] 30 mg tablet 30 mg PO DAILY Activity Restrictions/Additional Instructions: Please elevate legs. Use of lymphedema leg pumps. 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 Forms: Portal Instructions Follow Up Appointments: Follow up with Dr. Lawson office in 1 week [phone] Discharge Date/Time: 04/13/23 13:53
--- NOTE | 2023-04-13 10:14 | CM.NOTE ---
Rounds made with Dr. Bundy. Plan for discharge today returning to to [facility].
--- NOTE | 2023-04-13 10:24 | PT.DAILY ---
Physical Therapy Daily Note PT Daily Note/Assess Start: 04/13/23 10:18 Freq: Status: Active Protocol: Document 04/13/23 10:20 FIDE (Rec: 04/13/23 10:24 FIDE [id number]) Physical Therapy Daily Note/Assessment Time In/Time Out Time In 09:55 Time Out 10:19 Pain In Pain N/A Pain Out Pain N/A Subjective Subjective Pt supine upon arrival. agrees to PT. Denies much pain right now. Planned to go back to SNF this afternoon. Therapeutic Activity Time Therapeutic Activity Minutes (minutes) 10 Therapeutic Activity Units 1 Therapeutic Activity Treatment Bed Mobility Ability Moderate Assist,2 Person Assist Chair Transfer Ability Minimum Assist,2 Person Assist Therapeutic Activity Comments Pt performs supine>sit transfer with ModA+2 to advance LEs and upper body to sit EOB. Pt sits EOB 5 min. Needs assistance to kiana shoes . Sit>stand Martha+2 with bed elevated. Static standing 3 min. Takes 5x R lateral side steps to get to HOB. Sits EOB again another 2 min before needing ModA+2 assistance to return to supine. Remains supine with pillows under bilat LEs and call light in reach. Total Physical Therapy Time Total Therapy Minutes 10 Total Physical Therapy Units 1 Summary Daily Note Summary Fair tolerance with session. Cont to need increased assistance for transfers. Fatigued with this activity and min increased R ankle pain with WBing.
[2023-04-13 11:12] LABS: Glucometer 266 mg/dL (74-106)
[2023-04-13] MEDS: FUROSEMIDE 40 MG TABLET PO (12:04)
[2023-04-13] MEDS: INSULIN ASPART 300 UNIT/3 ML PEN SUBQ (12:04)
--- NOTE | 2023-04-13 12:45 | SWNOTE1 ---
Pt is ready for discharge today. [facility] called and set up trips transport for 1:45-2:15. [facility] sent over discharge med rec. SW reminded nursing to add discharge packet to transport packet as well. SW also reminded nursing to add any follow ups to [facility]. SW notified nursing and [facility] of time. There is no number listed in chart for pt's daughters. SW to check with pt. SW updated transport packet.
--- NOTE | 2023-04-13 12:59 | SWNOTE1 ---
SW was able to speak with daughter in pt's room on the cell phone. She is aware of time for transport.
--- NOTE | 2023-04-13 14:06 | PC.NURSE ---
report called to nurse Krueger at [facility]
== END 2023-04-13 13:53 | DRG 291 ==
PROVIDERS: Admitting Provider Family Medicine; PCP Family Medicine; Visit Provider Family Medicine
DX: I11.0 Hypertensive heart disease with heart failure (principal); I50.41 Acute combined systolic (congestive) and diastolic (congestive) heart failure; L97.311 Non-pressure chronic ulcer of right ankle limited to breakdown of skin; Z68.43 Body mass index [BMI] 50.0-59.9, adult; I48.91 Unspecified atrial fibrillation; E11.65 Type 2 diabetes mellitus with hyperglycemia; I87.2 Venous insufficiency (chronic) (peripheral); E66.01 Morbid (severe) obesity due to excess calories; E83.42 Hypomagnesemia; I10 Essential (primary) hypertension; I89.0 Lymphedema, not elsewhere classified; M19.071 Primary osteoarthritis, right ankle and foot; M21.961 Unspecified acquired deformity of right lower leg; M76.821 Posterior tibial tendinitis, right leg; Z79.82 Long term (current) use of aspirin; Z79.01 Long term (current) use of anticoagulants; Z86.718 Personal history of other venous thrombosis and embolism; Z79.4 Long term (current) use of insulin; Z79.899 Other long term (current) drug therapy; Z79.84 Long term (current) use of oral hypoglycemic drugs; Z83.3 Family history of diabetes mellitus; Z82.3 Family history of stroke; Z82.49 Family history of ischemic heart disease and other diseases of the circulatory system; Z80.9 Family history of malignant neoplasm, unspecified; Z88.2 Allergy status to sulfonamides
CPT/HCPCS: 36415; 73610; 80048; 81001; 82948; 83735; 83880; 84436; 84443; 84481; 84484; 85025; 93306; 93970; 94761; 96365; 96366; 97161; 97165; 97530; 97535; G0378; G0379

== ENCOUNTER 2023-04-22 08:52 | Outpatient (OUT) | payer MEDICARE, SELFPAY | END 2023-04-22 08:53 | disposition home or self-care (01) | LOC: WC 08:53 | PROVIDERS: PCP Family Medicine; Visit Provider Podiatrist Foot & Ankle Surgery | DX: S80.822A Blister (nonthermal), left lower leg, initial encounter (principal); S80.821A Blister (nonthermal), right lower leg, initial encounter; L98.9 Disorder of the skin and subcutaneous tissue, unspecified; I87.313 Chronic venous hypertension (idiopathic) with ulcer of bilateral lower extremity; L97.821 Non-pressure chronic ulcer of other part of left lower leg limited to breakdown of skin; L97.811 Non-pressure chronic ulcer of other part of right lower leg limited to breakdown of skin; M21.42 Flat foot [pes planus] (acquired), left foot | CPT/HCPCS: G0463 ==

== ENCOUNTER 2023-05-27 09:03 | Outpatient (OUT) | payer MEDICARE, SELFPAY ==
--- NOTE | 2023-05-27 | XR_ITS ---
The [address] [address] Patient Name: LUCIANA BUENROSTRO MRN: [id number] date: 1945 Sex: M Assigned Patient Location: [facility] Current Patient Location: [facility] Accession/Order Number: [id number] Exam Date: 05/27/2023 09:30 Report Date: 05/27/2023 22:36 At the request of: BALJINDER FUENTES Procedure: XR ankle RT min 3V EXAM: XR ankle RT min 3V HISTORY: RIGHT ANKLE PAIN COMPARISON: Right ankle radiographs 04/12/2023 TECHNIQUE: 3 views right ankle FINDINGS: Diffuse osseous demineralization. Generalized soft tissue swelling about the ankle slightly more prominent at the medial aspect. Prominent plantar fascia and Achilles tendon enthesophytes. Incidental notice vascular calcification. Likely severe pes planus. Moderate to severe degenerative change of the midfoot. Degenerative changes of the tibiotalar joint. No acute fracture or aggressive osseous abnormality. XR/XR ankle RT min 3V IMPRESSION: Overall stable degenerative changes of the midfoot and the tibiotalar joint when compared to prior with likely severe pes planus. Electronically authenticated by: AJITH MUNOZ Date: 05/27/2023 22:36
== END 2023-05-27 09:04 | disposition home or self-care (01) ==
LOC: RAD 09:04
PROVIDERS: PCP Family Medicine; Visit Provider Podiatrist Foot & Ankle Surgery
DX: M25.571 Pain in right ankle and joints of right foot (principal)
CPT/HCPCS: 73610

== ENCOUNTER 2023-06-07 12:15 | Outpatient (OUT) | payer MEDICARE, SELFPAY ==
[2023-06-07 12:42] LABS: Basophils Percent Auto 0.6 % (0.2-2.0); Eosinophils Absolute Auto 0.1 10^3/uL (0.0-0.7); Eosinophils Percent Auto 2.5 % (0.9-7.0); Hematocrit 30.2 % (42.0-54.0); Hemoglobin 9.5 g/dL (14.0-18.0); Immature Granulocytes Abs Auto 0.01 10^3/uL (0.00-0.03); Immature Granulocytes Pct Auto 0.2 % (0.0-0.5); Lymphocytes Absolute Auto 0.8 10^3/uL (1.2-3.8); Lymphocytes Percent Auto 15.8 % (20.5-60.0); Mean Corpuscular HGB Conc 31.5 g/dL (29.9-35.2); Mean Corpuscular Hemoglobin 30.5 pg (25.9-34.0); Mean Corpuscular Volume 97.1 fL (80.0-94.0); Mean Platelet Volume 9.1 fL (9.5-13.5); Monocytes Absolute Auto 0.5 10^3/uL (0.3-0.8); Monocytes Percent Auto 9.6 % (1.7-12.0); Neutrophils Absolute Auto 3.7 10^3/uL (1.4-6.5); Neutrophils Percent Auto 71.3 % (43.0-75.0); Platelet Count 257 10^3/uL (150-450); Red Blood Count 3.11 10^6/uL (4.70-6.10); Red Cell Distribution Width 15.5 % (11.0-15.0); White Blood Count 5.1 10^3/uL (4.0-11.0)
[2023-06-07 15:50] LABS: Alanine Aminotransferase 16 U/L (16-63); Albumin Level 3.5 g/dL (3.4-5.0); Alkaline Phosphatase 74 U/L (46-116); Aspartate Amino Transferase 13 U/L (15-37); BUN Creatinine Ratio 20.9; Bilirubin Total 0.3 mg/dL (0.2-1.0); Calcium 9.1 mg/dL (8.5-10.1); Carbon Dioxide 25.4 mmol/L (21.0-32.0); Chloride 107 mmol/L (98-107); Chol HDL Ratio 3.4; Cholesterol 120 mg/dL (<=200); Estimated GFR (African America >60 (>=60); Estimated GFR (Non-African Ame 54 (>=60); Free T3 2.55 pg/mL (2.18-3.98); Globulin 3.5 g/dL; Glucose 165 mg/dL (74-106); HDL Cholesterol 35 mg/dL (40-60); Potassium 5.4 mmol/L (3.5-5.1); Sodium 141 mmol/L (136-145); Thyroid Stimulating Hormone 1.399 uIU/mL (0.358-3.740); Triglycerides 130 mg/dL (<=150); Uric Acid 8.1 mg/dL (3.5-7.2)
[2023-06-08 13:43] LABS: Magnesium 1.8 mg/dL (1.8-2.4)
== END 2023-06-07 12:16 | disposition home or self-care (01) ==
LOC: LAB 12:21
PROVIDERS: PCP Family Medicine; Visit Provider Family Medicine
DX: E78.5 Hyperlipidemia, unspecified (principal); B35.4 Tinea corporis; R60.9 Edema, unspecified; E11.65 Type 2 diabetes mellitus with hyperglycemia; I10 Essential (primary) hypertension; Z12.5 Encounter for screening for malignant neoplasm of prostate; E83.42 Hypomagnesemia; I11.0 Hypertensive heart disease with heart failure; I50.30 Unspecified diastolic (congestive) heart failure
CPT/HCPCS: 36415; 80053; 80061; 83735; 83880; 84436; 84443; 84481; 84550; 85025; G0103

== ENCOUNTER 2023-07-20 09:35 | Outpatient (OUT) | payer MEDICARE, SELFPAY ==
[2023-07-20 10:12] LABS: Anion Gap 12.1; BUN Creatinine Ratio 22.9; Calcium 9.3 mg/dL (8.5-10.1); Chloride 104 mmol/L (98-107); Estimated GFR (African America >60 (>=60); Estimated GFR (Non-African Ame 60 (>=60); Glucose 150 mg/dL (74-106); Potassium 5.1 mmol/L (3.5-5.1); Sodium 141 mmol/L (136-145)
== END 2023-07-20 09:36 | disposition home or self-care (01) ==
LOC: LAB 09:36
PROVIDERS: PCP Family Medicine; Visit Provider Internal Medicine Cardiovascular Disease
DX: I11.0 Hypertensive heart disease with heart failure (principal)
CPT/HCPCS: 36415; 80048

== ENCOUNTER 2023-08-19 10:20 | Outpatient (OUT) | payer MEDICARE, SELFPAY ==
[2023-08-19 10:48] LABS: Anion Gap 15.9; BUN Creatinine Ratio 22.1; Carbon Dioxide 26.5 mmol/L (21.0-32.0); Chloride 104 mmol/L (98-107); Estimated GFR (African America >60 (>=60); Estimated GFR (Non-African Ame 51 (>=60); Glucose 242 mg/dL (74-106); Potassium 4.4 mmol/L (3.5-5.1); Sodium 142 mmol/L (136-145)
== END 2023-08-19 10:21 | disposition home or self-care (01) ==
PROVIDERS: PCP Family Medicine; Visit Provider Nurse Practitioner Family
DX: I11.0 Hypertensive heart disease with heart failure (principal); E87.5 Hyperkalemia
CPT/HCPCS: 36415; 80048

== ENCOUNTER 2023-09-29 10:51 | Outpatient (OUT) | payer MEDICARE, SELFPAY ==
--- OUTSIDE RECORDS SUMMARY | 2023-09-29 11:14 | XMS_ITS | CCD ---
Author Name Unknown Address [address] [place] [address] Organization [facility] Care Team Providers Care Accountant Certified Public Name Role Phone MAGALY SANTILLAN Attending Unavailable MAGALY SANTILLAN Admitting Unavailable HOY, GEOVANNA Referring Unavailable HOY, GEOVANNA Primary Care Unavailable Yulissa Hopper Unavailable HOY, GEOVANNA Consulting Unavailable HOY, GEOVANNA Attending Unavailable HOY, GEOVANNA Admitting Unavailable HOY, GEOVANNA Primary Care Unavailable HOY, GEOVANNA Consulting Unavailable HOY, GEOVANNA Attending Unavailable HOY, GEOVANNA Admitting Unavailable HOY, GEOVANNA Primary Care Unavailable HOY, GEOVANNA Attending Unavailable HOY, GEOVANNA Admitting Unavailable HOY, GEOVANNA Primary Care Unavailable HOY, GEOVANNA Consulting Unavailable DR JOHN LOPEZ Consulting Unavailable BALJINDER FUENTES Admitting Unavailable BALJINDER FUENTES Attending Unavailable HOY, GEOVANNA Primary Care Unavailable HOY, GEOVANNA Attending Unavailable HOY, GEOVANNA Consulting Unavailable HOY, GEOVANNA Admitting Unavailable HOY, GEOVANNA Primary Care Unavailable HOY, GEOVANNA Consulting Unavailable HOY, GEOVANNA Attending Unavailable HOY, GEOVANNA Admitting Unavailable HOY, GEOVANNA Primary Care Unavailable EDWARD PERSON Primary Care Unavailable Jacki Harmon Attending Unavailable Jacki Harmon Admitting Unavailable MD Geovanna Bundy Primary Care Provider MD Farnaz Ruggiero Attending Provider MAGALY SANTILLAN Attending Unavailable MAGALY SANTILLAN Referring Unavailable MAGALY SANTILLAN Referring Unavailable FARNAZ RUGGIERO Attending Unavailable JOHANN LOW Attending Unavailable FARNAZ RUGGIERO Attending Unavailable Farnaz Ruggiero Admitting Unavailable Farnaz Ruggiero Attending Unavailable Geovanna Bundy Primary Care Unavailable Yulissa Hopper Admitting Unavailable Yulissa Hopper Attending Unavailable Geovanna Bundy Primary Care Unavailable Allergies Allergy Classification Reported Allergen(s) Allergy Type Date of Onset Reaction(s) Facility (3 sources) Sulfonamides (Antibiotic); Translations: [SULFA (SULFONAMIDE ANTIBIOTICS)] Drug allergy (disorder) 3 [facility] Repository (2 sources) Sulfanilamide Drug Allergy Unknown [place] Other (2 sources) Sulfur Drug Allergy rash [place] Other Medications Current Medications Medication Drug Class(es) Dates Sig (Normalized) Sig (Original) amLODIPine 10 mg oral tablet (2 sources) Dihydropyridine Calcium Channel Janie take 1 tablet by mouth every twenty-four hours apixaban 5 mg oral tablet (2 sources) Factor Xa Inhibitor take 5 mg by mouth twice daily atorvastatin 20 mg oral tablet (2 sources) HMG-CoA Reductase Inhibitor take 1 tablet by mouth every twenty-four hours cetirizine hydrochloride 10 mg oral tablet (2 sources) Histamine-1 Receptor Antagonist take 1 tablet by mouth every twenty-four hours dapagliflozin (2 sources) Sodium-Glucose Cotransporter 2 Inhibitor Farxiga Active DULoxetine 30 mg delayed release oral capsule (2 sources) Serotonin and Norepinephrine Reuptake Inhibitor take 1 capsule by mouth every twelve hours fosinopril sodium 40 mg oral tablet (2 sources) Angiotensin Converting Enzyme Inhibitor take 1 tablet by mouth every twenty-four hours furosemide 20 mg oral tablet (2 sources) Loop Diuretic take 1 tablet by siobhan th every twenty-four hours glipiZIDE 10 mg oral tablet (2 sources) Sulfonylurea take 1 tablet by siobhan th every twenty-four hours hydrALAZINE hydrochloride 10 0 mg oral tablet (2 sources) Arteriolar Vasodilator take 1 tablet by mouth every twelve hours labetalol hydrochloride 100 mg oral tablet (2 sources) beta-Adrenergic Janie lansoprazole 30 mg delayed release oral capsule (2 sources) Proton Pump Inhibitor take 1 capsule by mouth every twenty-four hours latanoprost 0.05 mg/ml ophthalmic solution (2 sources) Prostaglandin Analog take 1 drop(s) into the eye(s) once daily in the evening take 1 drop(s) into the eye(s) once daily in the evening Latanoprost 0.005 % 1 drop into affected eye in the evening Ophthalmic Once a day Active meloxicam 1.5 mg/ml oral evi pension (2 sources) Nonsteroidal Anti-inflammatory Drug Meloxicam 7.5 MG /5ML Orally Active metFORMIN hydrochloride 1000 mg oral tablet (2 sources) Biguanide take 1 tablet by mouth every twelve hours methylPREDNISolone 4 mg oral tablet (2 sources) Corticosteroid Start: 08-27-2018 Multivitamin Adults 50+ (2 sources) Multivitamin Preston lts 50+ Orally Active pioglitazone 30 mg oral tablet (2 sources) Peroxisome Proliferator Receptor alpha Agonist, Peroxisome Proliferator Receptor gamma Agonist, Thiazolidinedione take 1 tablet by mouth every twenty-four hours pregabalin (2 sources) Pregabalin Activ e Robaxin-750 750 MG (2 sources) Start: 08-27-2018 take 1 tablet by mouth at bedt benny Start: 08-27-2018 take 1 tablet by siobhan th at bedtime Robaxin-750 750 MG 1 -2 tablet(s) Orally at bedtime for 10 days Aug, Active spironolactone 25 mg oral ta blet (2 sources) Aldosterone Antagonist take 1 tablet by mouth every twelve hours 12 hr timolol 5 mg/ml ophtha lmic solution (2 sources) beta-Adrenergic Janie take 1 drop(s) i nto the eye(s) once daily Problems Active Problems Problem Classification Problem Date Documented Da te Episodic/Chronic Asthma (2 sources) Asthma without status asthmaticus; Translations: [Asthma, unspecified, unspecified status] Onset: 12-22-2012 Chronic Cardiac dysrhythmias (9 sources) Atrial fibrillation; Translations: [Paroxysmal atrial fibrillation] Onset: 04-14-2022 Resolved: 04-14-2022 Chronic Congestive heart failure; nonhypertensive (5 sources) Acute combined systolic (congestive) and diastolic (congestive) heart failure; Translations: [Chronic diastolic (congestive) heart failure] Onset: 06-11-2022 Chronic Diabetes mellitus without complication (2 sources) Type 2 diabetes mellitus without complication; Translations: [Diabetes mellitus without mention of complication, type II or unspecified type, not stated as uncontrolled] Onset: 12-22-2012 Chronic Disorders of lipid metabolism (8 sources) Hyperlipidemia, unspecified; Translations: [Mixed hyperlipidemia] Onset: 06-09-2022 Chronic Essential hypertension (4 sources) Essential hypertension; Translations: [Unspecified essential hypertension] Onset: 12-22-2012 Chronic Glaucoma (2 sources) Glaucoma; Translations: [Unspecified glaucoma] Onset: 12-22-2012 Chronic Hyperplasia of prostate (1 source) Benign prostatic hyperplasia without lower urinary tract symptoms; Translations: [BENIGN PROSTATIC HYPRPLASIA WO LUTS] Onset: 06-11-2022 Chronic Hypertension with complications and secondary hypertension (4 sources) Hypertensive heart disease with heart failure; Translations: [HTN HEART DISEASE W/HEART FAIL] Onset: 06-11-2022 Chronic Miscellaneous mental health disorders (4 sources) Not getting enough sleep; Translations: [Insufficient sleep syndrome] Onset: 04-14-2022 Resolved: 04-14-2022 Chronic Other diseases of bladder and urethra (4 sources) Bladder-neck obstruction; Translations: [BLADDER-NECK OBSTRUCTION] Onset: 01-06-2023 Chronic Other nervous system disorders (2 sources) Chronic pain; Translations: [Other chronic pain] Chronic Other non-traumatic joint disorders (2 sources) Arthropathy; Translations: [Unspecified arthropathy, site unspecified] Onset: 12-22-2012 Chronic Other nutritional; endocrine; and metabolic disorders (4 sources) Body mass index 40+ - severely obese; Translations: [Body mass index (BMI) 45.0-49.9, adult] Chronic Other nutritional; endocrine; and metabolic disorders (1 source) Body mass index (BMI) 45.0-49.9, adult Onset: 04-14-2022 Resolved: 04-14-2022 Chronic Other nutritional; endocrine; and metabolic disorders (1 source) Body mass index (BMI) 50.0-59.9, adult Chronic Pulmonary heart disease (1 source) Pulmonary hypertension, unspecified; Translations: [PULMONARY HYPERTENSION UNSPECIFIED] Onset: 06-11-2022 Chronic Residual codes; unclassified (2 sources) Sleep apnea; Translations: [Unspecified sleep apnea] Onset: 12-22-2012 Chronic Residual codes; unclassified (2 sources) Obstructive sleep apnea syndrome; Translations: [Obstructive sleep apnea (adult) (pediatric)] Chronic Residual codes; unclassified (2 sources) Obstructive sleep apnea (adult) (pediatric) Onset: 04-14-2022 Resolved: 04-14-2022 Chronic Residual codes; unclassified (1 source) Obstructive sleep apnea (adult)(pediatric); Translations: [Obstructive sleep apnea (adult) (pediatric)] Onset: 09-26-2023 Chronic Secondary malignancies (2 sources) Secondary malignant neoplasm of other specified sites; Translations: [Secondary malignant neoplasm of other specified sites] Onset: 10-11-2022 Chronic Spondylosis; intervertebral disc disorders; other back problems (2 sources) Sciatica; Translations: [Sciatica, left side] Episodic Unclassified (3 sources) CONTACT W/AND (SUSP) EXPOS COVID-19; Translations: [CONTACT W/AND (SUSP) EXPOS COVID-19] Onset: 08-23-2022 Unclassified (1 source) COUGH, UNSPECIFIED; Translations: [COUGH, UNSPECIFIED] Onset: 08-23-2022 Past or Other Problems Problem Classification Problem Date Documented Da te Episodic/Chronic Diabetes mellitus without complication (1 source) Other abnormal glucose; Translations: [OTHER ABNORMAL GLUCOSE] Onset: 06-11-2022 Episodic Gastrointestinal hemorrhage (4 sources) Melena; Translations: [MELENA] Onset: 08-23-2022 Episodic Other screening for suspected conditions (not mental disorders or infectious disease) (1 source) Encounter for screening for malignant neoplasm of prostate; Translations: [ENC SCREEN MALIG NEOPLASM PROSTATE] Onset: 06-11-2022 Episodic Other upper respiratory disease (1 source) Nasal congestion; Translations: [NASAL CONGESTION] Onset: 08-23-2022 Episodic Unclassified (1 source) CONTACT W/AND (SUSP) EXPOS COVID-19; Translations: [CONTACT W/AND (SUSP) EXPOS COVID-19] Onset: 08-20-2022 Results Test Name Value Interpretation Reference Range Facility 36on 08-25-2023 36 Please let him know his labs show that his potassium level has returned back to normal. His kidney function is stable. Please confirm if he is taking lisinopril or not. If not, we can have him try to reduce the dose to 10mg daily (half tablet of his previous dose) and get a follow-up BMP in 1 month. Thanks [facility] Telephoneon 08-25-2023 Telephone [id number] Flor Buenrostro 1945 M Date Provider Department Center 08/25/[address] Family History Problem Relation Age of Onset Heart failure Mother Stroke Mother Cancer Father Heart attack Paternal Grandfather Family Status - Relation Status Age at Mother Father Paternal Grandfather Normal [facility] Office Visiton 07-20-2023 Follow-up visit [id number] Flor Buenrostro andrea Gu 1945 M Date Provider Department Center 07/20/2023 JOHANN PARIS Family History Problem Relation Age of Onset Heart failure Mother Stroke Mother Cancer Father Heart attack Paternal Grandfather Family Status - Relation Status Age at Mother Father Paternal Grandfather Level of Service:18961 [place] OFFICE/OUTPATIENT ESTABLISHED MOD MDM 30-39 MIN Reason for Visit and Comments: Congestive Heart Failure [127] Hypertension [564710] Normal [facility] Basic Metabolic Panelon 06-12 GFR/1.73 sq M.predicted MDRD (S/P/Bld) [Vol rate/Area] mL/min/{1.73_m2} Normal [facility] Comment on above: Performed By: #### B MP #### [facility] [address] [place] [address] [place] Calcium [Mass/volume] in Ser um or PlasmaOrdered By: Farnaz Ruggiero on 06-23-2023 Calcium [Mass/Vol] 9.4 mg/dL Normal 8.6-10.3 [facility] Comment on above: Result Comment: PERF ORMED BY: [place] [address] PATHOLOGIST SALES ACCOUNT DIRECTOR PATITO MIDDLETON M.D. Performed By: #### B MP #### [facility] [address] [place] [address] [place] Carbon dioxide, total [Moles /volume] in Serum or PlasmaOrdered By: Farnaz Ruggiero on 06-23-2023 CO2 [Moles/Vol] 27.8 mmol/L Normal 21.0-31.0 [facility] Comment on above: Performed By: #### B MP #### [facility] [address] [place] [id number] [place] Chloride [Moles/volume] in S mikey or PlasmaOrdered By: Farnaz Ruggiero on 06-23-2023 Chloride [Moles/Vol] 105 mmol/L Normal 98-107 [facility] Comment on above: Performed By: #### B MP #### [facility] [address] Creatinine [Mass/volume] in Serum or PlasmaOrdered By: Farnaz Ruggiero on 06-23-2023 Creatinine [Mass/Vol] 1.22 mg/dL Normal 0.70-1.30 [facility] Comment on above: Performed By: #### B MP #### [facility] [address] Glucose [Mass/volume] in Ser um or PlasmaOrdered By: Farnaz Ruggiero on 06-23-2023 Glucose [Mass/Vol] 169 mg/dL High 70-100 [facility] Comment on above: ADA recommended refe rence rangeRandom Glucose Reference Range is dependent on time and content of last meal. Glucose of more than 200 mg/dL in a nonstressed, ambulatory subject supports the diagnosis of Diabetes Mellitus. Result Comment: [place] om Glucose Reference Range is dependent on time and content of last meal. Glucose of more than 200 mg/dL in a nonstressed, ambulatory subject supports the diagnosis of Diabetes Mellitus. ADA recommended reference range Performed By: #### B MP #### [facility] [address] [place] [address] No Panel InformationOrdered By: Farnaz Ruggiero on 06-23-2023 Estimated GFR (CKD-EPI) > 60.0 mL/Min [facility] Creatinine Clearance (Chem N/A [facility] Potassium [Moles/volume] in Serum or PlasmaOrdered By: Farnaz Ruggiero on 06-23-2023 Potassium [Moles/Vol] 4.6 mmol/L Normal 3.5-5.1 [facility] Comment on above: Performed By: #### B MP #### [facility] [address] Serum or plasma anion gap de terminationOrdered By: Farnaz Ruggiero on 06-23-2023 Anion gap [Moles/Vol] 11.8 mmol/L Normal 6.0-15.0 [facility] Comment on above: Performed By: #### B MP #### [facility] [address] Sodium [Moles/volume] in Ser um or PlasmaOrdered By: Farnaz Ruggiero on 06-23-2023 Sodium [Moles/Vol] 140 mmol/L Normal 136-145 [facility] Comment on above: Performed By: #### B MP #### [facility] [address] Urea nitrogen [Mass/volume] in Serum or PlasmaOrdered By: Farnaz Ruggiero on 06-23-2023 Urea nitrogen [Mass/Vol] 23 mg/dL Normal 7-25 [facility] Comment on above: Performed By: #### B MP #### [facility] [address] Office Visiton 06-14-2023 Follow-up visit [id number] Flor Buenrostroald Brittanie 1945 M Date Provider Department Center 06/14/2023 [facility]-FARNAZ RUGGIERO IRWIN Andre Family History Problem Relation Age of Onset Heart failure Mother Stroke Mother Cancer Father Heart attack Paternal Grandfather Family Status - Relation Status Age at Mother Father Paternal Grandfather Level of Service:91171 [place] OFFICE/OUTPATIENT ESTABLISHED LOW MDM 20-29 MIN Normal [facility] Coding Summaryon 04-17-2023 Coding Summary HTMLBase 64 SfscovynBHy4vXb+PGhlYWQ+PE1F XWZvT87suRLyhQ1kA1ZUWWmSQqrh SAXLBKlFYaBhtvOqCN3zlJSsMXJv IC8+SP3dZZTiLpiohVAno4P3iHQ0 J22gir3ySSlmzKS1NWSfYzYvdzcb c9kdeSm2DLntTotnOzAs GLAwqG34YQV0oB14Sj16pKTsaUEs u6ydfXn9VbWaFKWyDGV1vTojJTqt d7YzTCKiJ33ykKOhd1V2 LMKpoMxjuFDbNdHwtSY5dN5fRZtu qlgzt9ngiuczJwa5tz51cKLag9D4 tHX2R7LvxgW9WJGclKEj KdboxVQDuM5ucxmrj1tvdsdyGhWu KDTrWBt3KIm9NVAqhLiyNcNxSZ63 LCF7DGVhxrKlU7NiVCIg oErpGpM7r5V0Yl5KZ4IDYktuS1FY TUFSWTwvdGQ+NZ33xn65L2GvTfbh Iyd6RXFrPZF5kQE6jI0y XTUsGXmql2W5mJF4L2BoiuLrum0p w7noNLGhHZcmM12tsKVku3V0LJYy aSB6WADjsOwlEaDqcQ76 Oyc+OYGzgWfgv2EiCpewh3idq0fm rKf2DgwfUMDiaqCbeEjjHFZ4y9Gg Id0vEDOsfJQ4fRU9oG0x MeGoDeM6SQqsL089TcNryQFbCmxl E43jU0DqfYA+WXVtKsa2EXObcWhg CZ3oV4ErVZVsdshkmPKm jWypCA4pEXPkikepAMVshL7dJDEr E9b4DzLjCbN9SGweV0YtZSEseouy Ov15eC4oDsFcZzB3YPad H1JoxbH4XNEofKWaWYqpHXF0Y03i w7D1QESpDDWxZWT7cLR5cS0gdJbp bjogbGVmdDsgdmVydGlj EAavRUnwF420ZQZjrFxjUtTnBAyt ZyBEYXRlOiAgMDgvMDYvMjAyMzwv dGQ+FPGoQVG6qHtoHEBe pTXmFRwiZm0gwTkmuDjpAD5vSKMx mofhIMWnmA9mYMXplTJvjFqyQE9t KCHcddrsi706FzTqKWX7 WHCddYIrC2SumB5rHaTkPECnASIq T0HfbCAiIJbpW370ZIlmCmP0WRIv asMlH3LqLIEryTvgPmH2 v9W0No8Ol5WziqsiL4KhyHRqBxJl ItzhJHv1B1PpLcqayLK+VW90CEDn RL01SRt3CLG2zRtdIBxi VVUzB6UgbW7mWaRlTYBbCMXgNvi+ PHRhYmxlIHdpZHRoPScxMDAlJyBz yHpuQK7iWe4xCNGlHHYu rKhdtUNlUjMoe9rpKFEdXVayTX8w fYuaG4IjsCD6WSFfx0n6Of17B32p I9DwaFK+RWFcxWL0aAY8 kV8dWsHoVmK6ATqbD076KuSrtCNp Vzzjt5eph7fpvRd0YsG0JFFzraJh xPhjWZM2o1GlIl90H43x HHrzXKEwVKWwIIUpLUCzuGwdna8q iK2wFt2+RMSroVG3aBS2uT6fHcDi XaN1DZklL181GuRhrOXx Kbcgl7mwv4ljuBb2RuQsEHNyziGj uZymFLA5r6IjYx35S5BfuJimd8Hq Vmr4ip15tEVqa2S2yLS0 X9FzZEWobsiagNIidUdzCZ3pYATc fjepAWCbcB0wODJsZ4s4LqBgPuP2 OWuhN6MrcaE6QQQmhZWk PFIelUUYwW3vhcmzq0nrumepSiUf QXUlGKa4DRc1TFZjaDwiHtWpFSI1 PiN5GDH0gCHmyS1dzGon mndzsM4uOda+KJY5pJUpxKBUUQ5g OjwvdGQ+ZKGlYMC7tZcbAIxjZUQo qT4lMSBaA2d2PzQrEwB3 SHdhE8DbrkZ7GUFbiQUnQVVcxCYJ lY1imoojw6sssoynUfKgOAEaXGw9 GQr9EVUryUhyYpBeSYT4 XrP6MIJ3fABuqM5yqRtttflmzY7m Oyc+FgqfkWknWRJ1WHd1D4FxGyh9 AZTstIwhRO9ftGBnYAhm Yn1ccFnjnHtsID4nAHMzndgxu635 XhZkx4yhZPRwqNJoNHuxXHS9J02s q6P6RSEjALDaCXR3lFE8 iQ9hjVrmqfnicBMsxFpaynMpfLra FTitWKiaO098LVDlxYdcUrXyBMm5 B7WtUul5NUHbgSahJR8k kTErEGkoMe8keVxvcHqtSP8pMKTh ynpjh550FxDui5mzDAOziRYaKMzi REQ0N20hq4D6FXLsHOBw DBU5qBN3oF7qmDogxmhndYLevMqu bqCieAvfKMmdGHlvA579DZNzjGqj GwJaqJd6Q0LmXpk4NWSs sLjtVY1jlVTzYIcnBa5alHqcpChm IM9fNSXzqvyzq412GjNkr5zmYMGi kYKzQSkhAJW3W61am7T4 HQYxTRSbWHH0yKN6mU3wtSwexpit pYDdyUqdouMbnCnbPKknRArzC015 IHRvcDsnPlBhdGllbnQg RAquXRl3C2AsJdlzgWI+UD91KEPc ZC95bFZlcYOlj9xfzBr3ZlFxOLLs IRP4gVcvLAqgp4RbGUPx E67cxOVnu9I0DMBlqAaqnUBiOaAm uRK9nM8dSRralyaqr5pjegzeKhtl y8tmwv72yS60T60aSCzq SMLkHUNlUBFvDKDjyEwqob7dmN1o Ii8+YRWsoTO4nIU7vB8uZMXpJiH6 WZeuD451RuAnsDEkCzvu t1qhe7qiqSf7TiR7GIIwkuZpgLko TXF4d9PqRb27B56eKIahNVNbNTRa WPZwBYLauVmvyr4boD8i Ii8+QFLfkVE4oZL1yX0cQmThIlN2 UKldZ190WwMqjUQkEtpjH25iN5Vj dXA+XYRqXvf6MTErtDfv LR5mvSUfURzwGv7iFGR8ArVsUvAq AKmvK7FvDBQtvvgmmfaaqXH3RFSr HUCttJ23Kk5efSxtFGKx bLTEoY3torkxn7mcyqdxKvUfKHVo OLt9COl1IULslDqdVqGqPNZ0ZqQ1 OVG8jDKgsZ2ueEwdnpnu kD4uL4GsRYThprlzFm19lT0pSsJh GeZ6YMtvIwi+LqWBUo3GZ5rDVRUV R33AETG4N8GjWdb9DUGo fKhcEQ2fsUZfSAnvDf3ccJbnsTyl UJ9tMDKdiuuxPIFmiZ2bRBInjMNg nLdaXM4gFQIrnbxrb332 IoVkDQW9KXCqbKQvO5TtcK2bQkWy WFUnSVUnV6KetOQtGOgsA913MChp MnB3DJZnilAxH7BeIHLj wNrwGsZ4d6X9Bs1cUD4yXf0oAGH3 UC28QY15iMKda9G4mKE0K1YgQVDh bervdfcyyJB3KQLjFWBm sJ10mCNdVMwyBr0iy7M1g523JQMw MKTpjY10Zx8kmVpaNAXiiTJTrU8w gnxed6iqmbtjVlLhTKNh GDb4HUb0VQImvMrbMiNoKQI1RaZ4 EGG1oMOiuM6pkLsgheaxxD0jRef+ BtfaGCRwvrC7K9UsAhd7 LIOajCkwBD6wzHViJRhfEj8pcJsl iNdjPL7kXIWawjetNIDrvK2nKEZx qWCwxDemVI2kFAHxnfiy j378SvQaRHI4SLEnnMJfW1EnbH9h CoGiUTKtUUWbF5VnnETaBSywD370 JFhlHpI1NJIeuiDbQ5Nj IPUfuZjlQhZ7x4F6Pn0MTZuHVE93 FC06yCKba5F0fLA1C2JjYGUgqpzk tsadmVK8XZOyYODndO40 cHMaTAruAf6mh7X0l186RWSmKWNd rS05Bf4kvVxiPKRhrXIZlZ1tqaua l1obolpoRaTsFULuBEs1 ISy7XXGeaXowFxAkQEL1CkV1KYC8 aOKklI6xtRsvgteupU1tRxi+RW1l wqcoirA1SL89CJ11Y3Yt PjwvdGFibGU+PHRhYmxlIHdpZHRo FNdiDLLuQpLvuOtpHX0yYu8tHCLn TQXvyRkvlJGoDrDrc8rq XZPfIZjjMP6wtRfyS0RarXE8WVBq t4h0Lo57I14zE2YfoTH+PGNvbCB3 zUU1sF3mPlKfUqC7LMcm S631ByOmiWMlTohoe6krb5gemEh9 QcMrCFRcxxAxqJddZKX9p8JxRf69 N09iAYwpULTpYMStQJTq QLRdrVebfy1dzJ2jXt2+PGNvbCB3 yEM4uO9pFyHpEfZ5XHilU124ZwTr yYFmAtalE39jB2GggSY+ GMTnAaw5ZEIusFqoEC5zsIIoMYjo Tl3wTPM9UkVaPgVeIGatX1QzGTGa spfgivqdjHR5XFKbGWVh iY43Gd4dqPpjQl0wHJRbVRS3EFQv yJTuR7VbxB9bKzLsMEYbOQPwB0Aj bQJtGIpmQ094VVrpAcH9 XDHbzoDrC1GlZBEhkSxcNrG6f9X8 Jh4IfIdzzVSlWG5oHsCoMOz8A0Fs Pom9XFWhyOljAH6seJZl EFfbUr3vsZjryLkuXL1eFDEwyspx u731YyPgj9obETGhmXNdGWvgGDI4 F00wx6W4SLJnUPJgRSI0 xEU3yU0qaOihiguxiWWjwZyacqAp uLmiKVrvYDdoG779RCQhgZfgFqXD Int1S0JnGnb8YIXmvDvp NF8tzIZcXWxcKz5hzMjrrVtcZZ8d RYZixqnvu058WkElc9yrOCNslTOl VCwpHHJ9H17qx0W9FUZe SJXyKCD8wGN0oB1gzDurfcknxWVy lFtynrVakUweNTdpSEjiW304DHGd iEpzYp1UDtg6H5YgIiu4 BLBxrHprMS7zrUFlUOseKg3tfIef pKncQP8lDCAfmimfy342KaAog5ml BGOgxSBtHCcxSHJ6A87j n8K5SXHwFQSdJAX1wTC1pZ2xxAqh bjogbGVmdDsgdmVydGljYWwtYWxp A619UJAnlJupYsEmtBPf OjwvdGQ+RR50xu00F3BoLusjIqi1 KRPfULS1zYJ1hH3bACHkGUzpw9S0 sQY8Z4RcrrVtjn0sk8yq YXB (more content not included)... [facility] Consent Formson 04-12-2023 Consent Forms [id number] .Auto Diff 04-11-2023 Auto [place] % 8 % Normal 1-12 [facility] Comment on above: Performed By: #### 5 [id number] #### [facility] (DEFAULT) [address] [place] [address] Baso Abs# 0.0 x10 Normal 0.0-0.2 [facility] Comment on above: Performed By: #### 5 [id number] #### [facility] (DEFAULT) [address] [place] [address] 99698 Basophils/100 WBC (Bld) 0.8 % Normal 0.2-2.0 [facility] Comment on above: Performed By: #### 5 [id number] #### [facility] (DEFAULT) [address] [place] [address]347 Eos Abs# 0.2 x10 Normal 0.0-0.4 [facility] Comment on above: Performed By: #### 5 [id number] #### [facility] (DEFAULT) [address] [place] [address] Eosinophils/100 WBC (Bld) 3.3 % Normal 0.9-4.0 [facility] Comment on above: Performed By: #### 5 [id number] #### [facility] (DEFAULT) [address] [place] [address] 15985 Lymph Abs# 0.6 x10 Low 1.3-2.9 [facility] Comment on above: Performed By: #### 5 [id number] #### [facility] (DEFAULT) [address] [place] [address] 39275 Lymphocytes/100 WBC (Bld) 11 % Low 14-48 [facility] Comment on above: Performed By: #### 5 [id number] #### [facility] (DEFAULT) [address] [place] [address] Randolph Abs# 0.5 x10 Normal 0.0-0.8 [facility] Comment on above: Performed By: #### 5 [id number] #### [facility] (DEFAULT) [address] [place] [address] 52451 Neut Abs# 4.5 x10 Normal 1.5-9.2 [facility] Comment on above: Performed By: #### 5 [id number] #### [facility] (DEFAULT) [address] [place] [address] 35332 Neutrophils/100 WBC (Bld) 77 % Normal 44-88 [facility] Comment on above: Performed By: #### 5 [id number] #### [facility] (DEFAULT) [address] [place] [address] 33565 BNP.on 04-11-2023 Natriuretic peptide B (Bld) [Mass/Vol] 279.0 pg/mL High 0.0-100.0 [facility] Comment on above: Result Comment: BNP results greater than 100 pg/mL are considered abnormal and suggestive of patients with CHF. Higher BNP concentrations measured in the first 72 hours after an acute coronary syndorme are associated with an increased risk of , myocardial infarction, and CHF. Performed By: #### 5 [id number] #### [facility] (DEFAULT) [address] [place] [address]39 CBC w/ Auto Diffon Erythrocyte distribution width (RBC) [Ratio] 14.6 % Normal 11.5-15.0 [facility] Comment on above: Performed By: #### 5 [id number] #### [facility] (DEFAULT) [address] [place] [address]121 Hematocrit (Bld) [Volume fraction] 27.9 % Low 34.8-51.9 [facility] Comment on above: Performed By: #### 5 [id number] #### [facility] (DEFAULT) [address] [place] [address] 28273 Hemoglobin (Bld) [Mass/Vol] 9.2 g/dL Low 11.8-17.7 [facility] Comment on above: Performed By: #### 5 [id number] #### [facility] (DEFAULT) [address] [place] [address] 68379 Man Diff? Auto Invalid Interpretation Code [facility] Comment on above: Performed By: #### 5 [id number] #### [facility] (DEFAULT) [address] [place] [address] 24464 MCH (RBC) [Entitic mass] 31 pg Normal 24-34 [facility] Comment on above: Performed By: #### 5 [id number] #### [facility] (DEFAULT) [address] [place] [address] 70831 MCHC (RBC) [Mass/Vol] 33 g/dL Normal 26-37 [facility] Comment on above: Performed By: #### 5 [id number] #### [facility] [facility] (DEFAULT) [address] [place] [address] 84310 MCV (RBC) [Entitic vol] 95 fL Normal 81-100 [facility] Comment on above: Performed By: #### 5 [id number] #### [facility] (DEFAULT) [address] [place] [address] 12794 Platelet 328 x10 Normal 138-427 [facility] Comment on above: Performed By: #### 5 [id number] #### [facility] (DEFAULT) [address] [place] [address] 02243 Platelet mean volume (Bld) [Entitic vol] 7.9 fL Normal 6.3-10.2 [facility] Comment on above: Performed By: #### 5 [id number] #### [facility] (DEFAULT) [address] [place] [address] 08357 RBC 2.94 x10 Low 3.70-5.30 [facility] Comment on above: Performed By: #### 5 [id number] #### [facility] (DEFAULT) [address] [place] [address] 61015 WBC 5.8 x10 Normal 3.5-10.5 [facility] Comment on above: Performed By: #### 5 [id number] #### [facility] (DEFAULT) [address] [place] [address] 10956 CMP Standardon 04-11-2023 Breakpoint Chem Normal [facility] Comment on above: Performed By: #### 5 [id number] #### [facility] (DEFAULT) [address] [place] [address] 45556 eGFR Non AA 53 mL/min/1.73m2 Invalid Interpretation Code [facility] Comment on above: Performed By: #### 5 [id number] #### [facility] (DEFAULT) [address] [place] [address] 28620 eGFR AA >60 Invalid Interpretation Code [facility] Comment on above: Performed By: #### 5 [id number] #### [facility] (DEFAULT) [address] [place] [address] 84375 Albumin [Mass/Vol] 3.4 g/dL Low 3.5-5.0 [facility] Comment on above: Performed By: #### 5 [id number] #### [facility] (DEFAULT) [address] [place] [address] 25853 Albumin/Globulin [Mass ratio] 0.9 {ratio} Low 1.4-2.6 [facility] Comment on above: Performed By: #### 5 [id number] #### [facility] (DEFAULT) [address] [place] [address] 61375 Alk Phos 56 IU/L Normal 32-91 [facility] Comment on above: Performed By: #### 5 [id number] #### [facility] (DEFAULT) [address] [place] [address] 84839 ALT [Catalytic activity/Vol] 11.0 U/L Low 17.0-63.0 [facility] Comment on above: Performed By: #### 5 [id number] #### [facility] (DEFAULT) [address] [place] [address] 88828 Anion gap [Moles/Vol] 11.3 mmol/L Normal 5.0-19.0 [facility] Comment on above: Performed By: #### 5 [id number] #### [facility] (DEFAULT) [address] [place] [address] 41050 AST [Catalytic activity/Vol] 18 U/L Normal 15-41 [facility] Comment on above: Performed By: #### 5 [id number] #### [facility] (DEFAULT) [address] [place] [address] 73729 Bili Total 0.4 mg/dL Normal 0.3-1.2 [facility] Comment on above: Performed By: #### 5 [id number] #### [facility] (DEFAULT) [address] [place] [address] 63034 Calcium [Mass/Vol] 9.8 mg/dL Normal 8.9-10.3 [facility] Comment on above: Performed By: #### 5 [id number] #### [facility] (DEFAULT) [address] [place] [address] 91496 Chloride [Moles/Vol] 104 mmol/L Normal 101-111 [facility] Comment on above: Performed By: #### 5 [id number] #### [facility] (DEFAULT) [address] [place] [address] 96662 CO2 [Moles/Vol] 28 mmol/L Normal 21-32 [facility] Comment on above: Performed By: #### 5 [id number] #### [facility] (DEFAULT) [address] [place] [address] 33027 Creatinine [Mass/Vol] 1.30 mg/dL Normal 0.90-1.30 [facility] Comment on above: Performed By: #### 5 [id number] #### [facility] (DEFAULT) [address] [place] [address] 73428 Globulin (S) [Mass/Vol] 3.5 g/dL Normal 1.5-4.3 [facility] Comment on above: Performed By: #### 5 [id number] #### [facility] (DEFAULT) [address] [place] [address] 56198 Glucose [Mass/Vol] 96.0 mg/dL Normal 74.0-118.0 [facility] Comment on above: Performed By: #### 5 [id number] #### [facility] (DEFAULT) [address] [place] [address] 67331 Osmolality 283 mOsm/L Invalid Interpretation Code [facility] Comment on above: Performed By: #### 5 [id number] #### [facility] (DEFAULT) [address] [place] [address] 29523 Potassium [Moles/Vol] 5.3 mmol/L High 3.6-5.1 [facility] Comment on above: Performed By: #### 5 [id number] #### [facility] (DEFAULT) [address] [place] [address] 77928 Protein [Mass/Vol] 6.9 g/dL Normal 6.5-8.1 [facility] Comment on above: Performed By: #### 5 [id number] #### [facility] (DEFAULT) [address] [place] [address] 22059 Sodium [Moles/Vol] 138.0 mmol/L Normal 136.0-144 . 0 [facility] Comment on above: Performed By: #### 5 [id number] #### [facility] (DEFAULT) [address] [place] [address] 28817 Urea nitrogen [Mass/Vol] 34 mg/dL High 8-26 [facility] Comment on above: Performed By: #### 5 [id number] #### [facility] (DEFAULT) [address] [place] [address] 67650 Urea nitrogen/Creatinine [Mass ratio] 26.1 mg/mg High 4.6-16.2 [facility] Comment on above: Performed By: #### 5 [id number] #### [facility] (DEFAULT) [address] [place] [address] Chest W/Contraston 2022 CT Chest W/Contrast CLINICAL HISTORY: Sh ortness of breath and lower extremity swelling/fluid retention. 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 COMPARISON: None available. TECHNIQUE: Multiple contiguous axial images of the chest were obtained following IV administration of 100 mL of Omnipaque 350. Multiplanar reformats were acquired. All CT scans at this facility use dose modulation, iterative reconstruction, and/or weight based dosing when appropriate to reduce radiation dose to as low as reasonably achievable. FINDINGS: A moderate-sized right and small left layering pleural effusions are present with mild adjacent compressive atelectasis. A bandlike opacity within the right mid lung is probably post radiation treatment scarring, with a suspicious mass or underlying endobronchial lesion identified. There is no other significant pulmonary infiltrate, worrisome nodules or lymphadenopathy. The heart is mildly enlarged with a trace pericardial effusion, coronary and aortic valve calcifications. The thoracic aorta is normal in caliber with minimal atherosclerotic plaquing. A linear area of sclerosis within the anterolateral aspect of the left sixth rib is probably a chronic fracture. There is no worrisome bone destruction or other fractures are identified. The limited imaging of the included upper abdomen demonstrate nonspecific moderate distention of the gallbladder with small calcified gallstones near the neck. IMPRESSION: Mild cardiomegaly, bilateral pleural effusions and probable compressive atelectasis. Probable postradiation right midlung scarring. Without prior studies available for comparison, follow-up imaging is suggested. Cholelithiasis and nonspecific gallbladder distention. Other chronic findings, as noted. Final Signed (Electronic Signature): John Yang MD 04/11/23 1:36 pm Technologist: LT CHANTEL Normal [facility] ED Clinical Summaryon 2022 ED Clinical Summary [facility] - Emergency Department [address] [place], [place] [id number] ED Clinical Summary PERSON INFORMATION Name: LUCIANA BUENROSTRO Age: 77 Years Sex: MALE : 1945 MRN: Acct#: Visit Reason: Edema; DIFF BREATHING/CHF Arrival: 04/11/2023 10:50:23 Discharge: 04/11/2023 15:44:00 LOS: 000 04:54 Check In: 04/11/2023 10:50:23 Checkout:04/11/2023 15:44:00 Address: [address] [facility] [address] PCP: EDWARD PERSON PROVIDER INFORMATION Provider Role Assigned Unassigned Alta Anton DEMAND PLANNER Nurse 04/11/2023 11:02:26 Jacki Harmon PROOF TECHNICIAN HELPER ED PA 04/11/2023 11:10:24 Gia Groves DEMAND PLANNER Nurse 04/11/2023 13:15:10 VITALS INFORMATION Vital Sign Triage Latest Temperature Tympanic Temperature Temporal Artery Pulse Rate 109 bpm 68 bpm O2 Sat 96 % 95 % Respiratory Rate 18 br/min 18 br/min Blood Pressure /52 mmHg /52 mmHg MEDICAL INFORMATION Medications Given: Medication Dose Route furosemide (Lasix) 40 mg IV Push iohexol (Omnipaque 350 100 ml) 350 mg IV Push Allergy Information: No known allergies PHYSICIAN DOCUMENTATION DISCHARGE INFORMATION: Discharge Disposition: Discharge/Transfer to Another Hospital Discharge Location: [facility]) PATIENT EDUCATION INFORMATION Instructions: Follow-Up: DIAGNOSIS: 1:Congestive heart failure; 2:Lower extremity cellulitis Patient Understands: Yes - Patient/family/caregiver verbalizes understanding of instructions given Comment: [facility] ED Note-Nursingon 04-11-2023 ED Note-Nursing Patient comes to the ER by EMS with immediate request to be transferred to [facility] upon arrival. Patient states all of his doctors are there and that is where he wants to go. Patient states that his lower legs are more swollen than normal and he knows that means he'll be short of breath soon. Patient has bilateral lower leg dressings that are clean and dry. Patient states those are from his legs weeping. Patient denies pain and shortness of breath at this time. [facility] ED Patient Education Noteon 04-11-2023 ED Patient Education Note Education Materials [facility] ED Patient Summaryon 023 ED Patient Summary [facility] - Emergency Department [address] [place], [place] [id number] PATIENT DISCHARGE INSTRUCTIONS Patient Information Name: LUCIANA BUENROSTRO Age: 77 Years Date of : 1945 Reason For Visit: Edema; DIFF BREATHING/CHF Arrival Time: 04/11/2023 10:50:23 Primary Care Physician: EDWARD PERSON Attending Physician: Rich Foreman DO Comment: Visit Diagnosis: Diagnoses This Visit Congestive heart failure (I50.9) Edema ([id number]) Lower extremity cellulitis (L03.119) The Pharmacy at [facility] is open Tuesday through Tuesday from 9A to 6P and Tuesday and Tuesday from 9A to 5P Prescription Information: If you have been given a prescription for narcotics, seek immediate medical attention if you have any difficulty breathing or any sudden status changes such as confusion and sleepiness. If you or anyone you know is experiencing suicidal thoughts, mental health, alcohol and/or drug addiction problems; contact the [facility] 04/04 Crisis Hotline -Text 4HOPE iz 293899. If you received any narcotics, sedation, or any other medication that causes drowsiness for the next 24 hours, unless otherwise directed: ? Do not drive a car. ? Do not operate machinery such as power tools, lawn mowers, drills, sewing machines, or stoves ? Avoid alcoholic beverages and drugs for allergies, nerves, or sleep ? Do not make important personal or business decisions or sign any legal documents Medication Information: The exam and treatment you received today in the [facility] Emergency Department were for an urgent problem and are not intended as complete care. It is important for you to follow up with a doctor, nurse practitioner, or physician?s technical services assistant for ongoing care. If your symptoms become worse or you do not improve as expected and you are unable to reach your usual health care provider, you should return to the Emergency Department, we are available 24 hours a day. For those patients who have received Radiology results, the interpretation of your X-ray as given to you by our Emergency Department physician is only a preliminary report. The Radiologist will review your films and if there is a change in the diagnosis you will be notified by phone. Please make sure you have provided a working phone number so we can reach you if necessary. In the event that you had a lab culture while you were a patient in the Emergency Department, you will be notified by phone if there is a need to change your antibiotic. Please make sure you have provided a working phone number so we can reach you if necessary. [facility] Emergency Department has provided you with a complete list of medications post discharge. Please inform your geological scout/provider of your visit and for further instruction on these medications. Any specific questions regarding your chronic medications and dosages should be discussed with your primary care physician(s) and/or pharmacist. Medications to Continue That Have Not Changed Other Medications apixaban (Eliquis 5 mg oral tablet) 1 tab(s) Oral 2 times a day. empagliflozin (Jardiance 10 mg oral tablet) furosemide (furosemide 40 mg oral tablet) 1 tab(s) Oral every day. ketoconazole topical (ketoconazole 2% topical cream) 1 nishant Topical every day. labetalol (labetalol 100 mg oral tablet) 1 tab(s) Oral 2 times a day. lansoprazole (lansoprazole 30 mg oral delayed release capsule) 1 cap(s) Oral 2 times a day. metFORMIN (metFORMIN 1000 mg oral tablet) 1 tab(s) Oral 2 times a day. mirabegron (Myrbetriq 25 mg oral tablet, extended release) potassium chloride (Klor-Con M10 oral tablet, extended release) 1 tab(s) Oral 2 times a day. Visit Information Allergies: Substance Reaction Symptoms Type Comments No known allergies Drug Vital Signs: Vitals and Measurements this Visit (last charted value for your 04/11/2023 visit) Vital Signs This Visit Temperature Oral: 36.7 DegC Peripheral Pulse Rate: 68 bpm Respiratory Rate: 18 br/min Systolic Blood Pressure: 126 mmHg Diastolic Blood Pressure: 63 mmHg Mean Arterial Pressure, Cuff-Calculation: 85 mmHg Mean Arterial Pressure Cuff-Monitor: 79 mmHg SpO2: 95 % Oxygen Therapy: Room air Measurements This Visit Height/Length Dosin.720 cm Height/Length Estimated: 172.720 cm Weight Dosin.470 kg Weight Estimated: 122.470 kg Problems List: Problem Onset Comments No Problems found Patient Education Viruses or Bacteria What?s got you sick? Antibiotics only treat bacterial infections. Viral illnesses cannot be treated with antibiotics. When an antibiotic is not prescribed, ask your healthcare professional for tips on how to relieve symptoms and feel better. Usual Cause Illness Viruses Bacteria Antibiotic Needed Cold/Runny Nose ? NO Bronchitis/Chest Cold (in otherwise healthy children and adults) ? NO (more content not included)... Normal [facility] Extra Redon 04-11-2023 Tube Collected Yes Invalid Interpretation Code [facility] Comment on above: Performed By: #### 5 [id number] #### [facility] (DEFAULT) [address] [place] [address] 73646 Magnesiumon 04-11-2023 Magnesium [Mass/Vol] 1.54 mg/dL Low 1.80-2.50 [facility] Comment on above: Performed By: #### 5 [id number] #### [facility] (DEFAULT) [address] [place] [address] 78279 PTon 04-11-2023 INR Coag (PPP) [Relative time] 1.11 {INR} Normal 0.91-1.11 [facility] Comment on above: Performed By: #### 5 [id number] #### [facility] (DEFAULT) [address] [place] [address] 47335 PT 11.8 second(s) Normal 9.7-11.8 [facility] Comment on above: Performed By: #### 5 [id number] #### [facility] (DEFAULT) [address] [place] [address] 86020 TnI HSon 04-11-2023 Troponin I High Sensitivity 5.0 pg/mL Normal <=20.0 [facility] Comment on above: Order Comment: To be done 1 hour after first Troponin HS Performed By: #### 5 [id number] #### [facility] (DEFAULT) [address] [place] [address] 50348 Troponin I High Sensitivity 5.3 pg/mL Normal <=20.0 [facility] Comment on above: Performed By: #### 5 [id number] #### [facility] (DEFAULT) [address] [place] [address] 38915 Transfer Noteon 04-11-2023 Transfer Note 1442- Called [facility] and spoke to Mary RN survey workers supervisor. She said to ask the pilot control operator helper to page the hospitalist 1447- Waited on hold for the hospitalist 1450- Dr. Bundy spoke to Jacki YOUNG 1455- Dr. Bundy accepts 1456- Left RN survey workers supervisor a voicemail 1506- Debbie from case management at [facility] called with bed assignment rm 215. Report can be called to [phone] ext [phone]. She requested the patient's medical records be sent to them at fax number [phone] 1508- Called [facility]. Carroll said they would be over after a while 1527- [facility] arrives 1542- [facility] departs Entire chart and CD printed and sent to the patient. Home medications documented in the patient's chart [Electronically Signed on: 04/11/2023 15:49 EDT] Crystal Shoemaker [Verified on: 04/11/2023 15:49 EDT] Crystal Shoemaker Normal [facility] Transfer Note [id number] [facility] XR Chest 1 View Frontalon XR Chest 1 View Frontal CLINICAL HISTORY: Chest pain. COMPARISON: None available. TECHNIQUE: A portable upright AP radiograph of the chest was obtained. FINDINGS: An approximately 7 x 2 cm bandlike opacity is noted within the right midlung zone, which may be bronchopneumonia, atelectasis, scarring, malignancy and/or metastatic disease. A small right pleural effusion and mild infiltrate/atelectasis is present of the right lung base. There is no sizable left pleural effusion, cardiomegaly, vascular congestion, pneumothorax or other significant infiltrates identified elsewhere, by portable chest radiography. IMPRESSION: NONSPECIFIC BANDLIKE RIGHT MID LUNG OPACITY, DESCRIBED. POSSIBLE SMALL RIGHT PLEURAL EFFUSION AND RIGHT BASILAR INFILTRATE/ATELECTASIS. Final Signed (Electronic Signature): John Yang MD 04/11/23 12:14 p Technologist: AUSTYN GOLDEN [facility] US KIDNEYS BLADDERon 01-06-2 023 US KIDNEYS BLADDER [facility] H[facility]ORY: Bladder neck obstruction COMPARISON: No relevant comparison available. TECHNIQUE: Ultrasound examination was performed of the kidneys and urinary bladder. FINDINGS: RIGHT KIDNEY: 2.2 cm benign-appearing cyst projecting from inferior pole. Mild cortical thinning. No evidence of pelvocaliectasis, mass, or calculi. Normal renal cortical parenchymal echogenicity. Color Doppler demonstrates blood flow within the kidney. Kidney: 12.9 x 4.9 x 5.6 cm LEFT KIDNEY: Mild cortical thinning. No evidence of pelvocaliectasis, mass, or calculi. Normal renal cortical parenchymal echogenicity. Color Doppler demonstrates blood flow within the kidney. Kidney: 11.5 x 4.9 x 6.1 cm BLADDER: No visible wall thickening, mass, or calculi. Post void residual: 0 mL URETERAL JETS: Visualized bilaterally. IMPRESSION: 1. No abnormal or suspicious findings to account for patient's symptoms. Electronically authenticated by: JOHN LOPEZ Date: 2023-01-06 12:09 [facility] 29on 10-11-2022 29 Addended by: JESSE BRENNAN on: 10/14/2022 10:30 AM Modules accepted: Orders [facility] Follow-Upon 10-11-2022 Follow-Up [id number] Flor Buenrostro 1945 M Date Provider Department Center 10/11/2022 242-MAGALY SANTILLAN DCC ONC DCC Family History Problem Relation Age of Onset Heart failure Mother Stroke Mother Cancer Father Heart attack Paternal Grandfather Family Status - Relation Status Age at Mother Father Paternal Grandfather Level of Service:[address]24 [place] OFFICE/OUTPATIENT ESTABLISHED LOW [facility] 20-29 MIN Reason for Visit and Comments: Follow-up [629436] - Here for follow-up 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 Review PET scan that was done today. [facility] HPon 10-11-2022 HP History Of Present I llness Mr Jael Buenrostro is a 77 y.o. 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 He underwent radical resection with preservation of radial nerve and reconstruction of soft tissue defect with latissimus dorsi myocuteneous flap and then adjuvant radiation therapy. In Sep 2019 he developed a PET avid solitary nodule right lung upper lobe and was treated with SBRT with complete response. Since then he has remained disease free. He returned to clinic today after PET scan . He has no specific complain. He has not noted any soft tissue mass . Denies any shortness of breath at rest or with moderate activity. Past Medical History He has a past medical history of Atrial fibrillation (CMS/HCC), CHF (congestive heart failure) (CMS/HCC), Diabetes mellitus (CMS/HCC), Hyperlipidemia, Hypertension, Sarcoma (CMS/HCC), and Sleep apnea. Surgical History He has a past surgical history that includes CT guided percutaneous muscle (02/21/2018); Cataract extraction; Prostate surgery; Hernia repair; Foot surgery; Cardioversion; Knee Arthroplasty; Tonsillectomy; Other surgical history (03/09/2018); and Other surgical history (04/04/2018). Social History He reports that he has quit smoking. His smoking use included cigarettes. He has never used smokeless tobacco. He reports that he does not currently use alcohol. He reports that he does not use drugs. Family History Family History Problem Relation Name Age of Onset Heart failure Mother Stroke Mother Cancer Father Heart attack Paternal Grandfather Allergies Sulfa (sulfonamide antibiotics) Medications (Not in a hospital admission) Review of Systems Constitutional: Negative for fatigue, fever and unexpected weight change. HENT: Negative for trouble swallowing and voice change. Eyes: Negative for visual disturbance. Respiratory: Negative for cough, chest tightness and shortness of breath. Cardiovascular: Negative for chest pain and palpitations. Gastrointestinal: Negative for abdominal distention, abdominal pain and blood in stool. Endocrine: Negative for cold intolerance, heat intolerance, polydipsia and polyuria. Genitourinary: Negative for difficulty urinating and hematuria. Musculoskeletal: Negative for back pain, gait problem and myalgias. Walks with a walker Skin: Negative for color change. Neurological: Positive for weakness. Negative for tremors. Weakness of right arm due to loss of triceps muscle. The radial nerve function of fore arm is normal. [employer] strength in right hand is normal. There is no clinically detectable recurrence in right upper extremity or in chest wall . He has no other soft tissue mass. There is no axillary or cervical devyn abnormality Psychiatric/Behavioral: Negative for sleep disturbance. Last Recorded Vitals @IPVITALS@ Physical Exam Constitutional: Appearance: Normal appearance. He is obese. HENT: Head: Normocephalic. Cardiovascular: Rate and Rhythm: Normal rate and regular rhythm. Heart sounds: Normal heart sounds. No murmur heard. Pulmonary: Effort: Pulmonary effort is normal. Breath sounds: Normal breath sounds. No rhonchi or rales. Abdominal: Palpations: Abdomen is soft. Tenderness: There is no abdominal tenderness. Musculoskeletal: General: No swelling. Comments: No recurrence over right arm . Skin shows radiation induced telangectasia Lymphadenopathy: Cervical: No cervical adenopathy. Right cervical: No superficial or deep cervical adenopathy. Left cervical: No superficial or deep cervical adenopathy. Upper Body: Right upper body: No supraclavicular or axillary adenopathy. Left upper body: No supraclavicular or axillary adenopathy. Skin: Coloration: Skin is not jaundiced. Neurological: Mental Status: He is alert and oriented to person, place, and time. Gait: Gait normal. Psychiatric: Mood and Affect: Mood normal. Behavior: Behavior normal. Judgment: Judgment normal. Relevant Lab Results No results found for: NA, K, CL, CO2, BUN, CREATININE, GLUCOSE, CALCIUM, ANIONGAP, EGFR, BCR Relevant Imaging Results PET/CT bone skull base to mid thigh Narrative: [facility] Department of Radiology [address] [place] [address] Patient Name: PORTERJAEL BRARAGANFIFI Gu : 1945 Sex: M Age: Race: White^White Pt. 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 Normal [facility] POCT GLUCOSE METER UNSOLICIT ED RESULTSon 10-11-2022 Glucose [Mass/Vol] 195 mg/dL High 70-105 [facility] Comment on above: Result Comment: daquan paz Performed By: #### L [id number] ####[facility] ([facility]AKER)[address] [place] [address] Glucose [Mass/Vol] 202 mg/dL High 70-105 [facility] Comment on above: Result Comment: daquan paz Performed By: #### L [id number] ####[facility] (BEAKER)[address] [place] [address] Office Visiton 09-22-2022 Follow-up visit [id number] Flor Buenrostro 1945 M Date Provider Department Center 09/22/2022 [id number]-[id number] RUGGIERO [facility] Family History Problem Relation Age of Onset Heart failure Mother Stroke Mother Cancer Father Heart attack Paternal Grandfather Family Status - Relation Status Age at Mother Father Paternal Grandfather Level of Service:[address] [place] OFFICE/OUTPATIENT ESTABLISHED LOW MDM 20-29 MIN Reason for Visit and Comments: Atrial Fibrillation [80] Hypertension [451039] Congestive Heart Failure [127] Hyperlipidemia [182] Normal [facility] OCC BLD IMMUNO SCREENon 08-12 OCCULT BLOOD Negative Normal NEGATIVE [facility] Comment on above: Performed By: #### B TEXTILE DESIGNS SALES REPRESENTATIVE, TSH, URIC, LIPID, CMP #### [facility] [address] [place] [address] Dr. Sallie Brennan CBC AUTO DIFFon 08-21-2022 BASO # 0.0 103/ul Normal 0.0-0.1 [facility] Comment on above: Performed By: #### B TEXTILE DESIGNS SALES REPRESENTATIVE, TSH, URIC, LIPID, CMP #### [facility] [address] [place] [address] Dr. Sallie Brennan Basophils/100 WBC (Bld) 0.6 % Normal 0.2-2.0 [facility] Comment on above: Performed By: #### B TEXTILE DESIGNS SALES REPRESENTATIVE, TSH, URIC, LIPID, CMP #### [facility] [address] [address] [address] Sallie Brennan EO # 0.1 103/ul Normal 0.0-0.7 [facility] Comment on above: Performed By: #### B TEXTILE DESIGNS SALES REPRESENTATIVE, TSH, URIC, LIPID, CMP #### [facility] [address] [address] [address] Sallie Brennan Eosinophils/100 WBC (Bld) 1.9 % Normal 0.9-7.0 [facility] Comment on above: Performed By: #### B TEXTILE DESIGNS SALES REPRESENTATIVE, TSH, URIC, LIPID, CMP #### [facility] [address] [place] [address] Dr. Sallie Brennan Erythrocyte distribution width (RBC) [Ratio] 13.7 % Normal 11.0-15.0 [facility] Comment on above: Performed By: #### B TEXTILE DESIGNS SALES REPRESENTATIVE, TSH, URIC, LIPID, CMP #### [facility] [address] [place] [address] Dr. Sallie Brennan Hematocrit (Bld) [Volume fraction] 32.6 % Critically low 42.0-54.0 [facility] Comment on above: Performed By: #### B TEXTILE DESIGNS SALES REPRESENTATIVE, TSH, URIC, LIPID, CMP #### [facility] [address] [place] [address] Dr. Sallie Brennan Hemoglobin (Bld) [Mass/Vol] 10.8 g/dL Critically low 14.0-18.0 [facility] Comment on above: Performed By: #### B TEXTILE DESIGNS SALES REPRESENTATIVE, TSH, URIC, LIPID, CMP #### [facility] [address] [place] [address] Dr. Sallie Brennan IG # 0.03 10e3/ul Normal 0.00-0.03 [facility] Comment on above: Performed By: #### B TEXTILE DESIGNS SALES REPRESENTATIVE, TSH, URIC, LIPID, CMP #### [facility] [address] [place] [address] Dr. Sallie Brennan IG % 0.4 % Normal 0.0-0.5 [facility] Comment on above: Performed By: #### B TEXTILE DESIGNS SALES REPRESENTATIVE, TSH, URIC, LIPID, CMP #### [facility] [address] [place] [address] Dr. Sallie Brennan LYMPH # 0.8 103/ul Critically low 1.2-3.8 [facility] Comment on above: Performed By: #### B TEXTILE DESIGNS SALES REPRESENTATIVE, TSH, URIC, LIPID, CMP #### [facility] [address] [place] [address] Dr. Sallie Brennan Lymphocytes/100 WBC (Bld) 12.2 % Critically low 20.5-60.0 [facility] Comment on above: Performed By: #### B TEXTILE DESIGNS SALES REPRESENTATIVE, TSH, URIC, LIPID, CMP #### [facility] [address] [place] [address] Dr. Sallie Brennan MANUAL DIFF REQ NO Normal [facility] Comment on above: Performed By: #### B TEXTILE DESIGNS SALES REPRESENTATIVE, TSH, URIC, LIPID, CMP #### [facility] [address] [place] [address] Dr. Sallie Brennan MCH (RBC) [Entitic mass] 31.3 pg Normal 25.9-34.0 [facility] Comment on above: Performed By: #### B TEXTILE DESIGNS SALES REPRESENTATIVE, TSH, URIC, LIPID, CMP #### [facility] [address] [place] [address] Dr. Sallie Brennan MCHC (RBC) [Mass/Vol] 33.1 g/dL Normal 29.9-35.2 [facility] Comment on above: Performed By: #### B TEXTILE DESIGNS SALES REPRESENTATIVE, TSH, URIC, LIPID, CMP #### [facility] [address] [place] [address] Dr. Sallie Brennan MCV (RBC) [Entitic vol] 94.5 fL Critically high 80.0-94.0 [facility] Comment on above: Performed By: #### B TEXTILE DESIGNS SALES REPRESENTATIVE, TSH, URIC, LIPID, CMP #### [facility] [address] [place] [address] Dr. Sallie Brennan MONO # 0.7 103/ul Normal 0.3-0.8 [facility] Comment on above: Performed By: #### B TEXTILE DESIGNS SALES REPRESENTATIVE, TSH, URIC, LIPID, CMP #### [facility] [address] [place] [address] Dr. Sallie Brennan Monocytes/100 WBC (Bld) 9.6 % Normal 1.7-12.0 [facility] Comment on above: Performed By: #### B TEXTILE DESIGNS SALES REPRESENTATIVE, TSH, URIC, LIPID, CMP #### [facility] [address] [place] [address] Dr. Sallie Brennan NEUT # 5.2 103/ul Normal 1.4-6.5 [facility] Comment on above: Performed By: #### B TEXTILE DESIGNS SALES REPRESENTATIVE, TSH, URIC, LIPID, CMP #### [facility] [address] [place] [address] Dr. Sallie Brennan Neutrophils/100 WBC (Bld) 75.3 % Critically high 43.0-75.0 [facility] Comment on above: Performed By: #### B TEXTILE DESIGNS SALES REPRESENTATIVE, TSH, URIC, LIPID, CMP #### [facility] [address] [address] [address] Sallie Brennan Platelet mean volume (Bld) [Entitic vol] 9.9 fL Normal 9.5-13.5 [facility] Comment on above: Performed By: #### B TEXTILE DESIGNS SALES REPRESENTATIVE, TSH, URIC, LIPID, CMP #### [facility] [address] [address] [address] Sallie Brennan PLT 253 103/ul Normal 150-450 [facility] Comment on above: Performed By: #### B TEXTILE DESIGNS SALES REPRESENTATIVE, TSH, URIC, LIPID, CMP #### [facility] [address] [address] [address] Sallie Brennan RBC 3.45 106/ul Critically low 4.70-6.10 [facility] Comment on above: Performed By: #### B TEXTILE DESIGNS SALES REPRESENTATIVE, TSH, URIC, LIPID, CMP #### [facility] [address] [place] [address] Dr. Sallie Brennan WBC 6.9 103/ul Normal 4.0-11.0 [facility] Comment on above: Performed By: #### B TEXTILE DESIGNS SALES REPRESENTATIVE, TSH, URIC, LIPID, CMP #### [facility] [address] [address] [address] Sallie Brennan [facility]on SARS-CoV-2 (COVID-19) RNA ESCOBAR+probe Ql (Unsp spec) Not detected Normal NOT DETECTED [facility] Comment on above: Result Comment: This test is not yet approved or cleared by the [place] FDA. When there are no FDA-approved or cleared tests available, and other criteria are met, FDA can make tests available under an emergency access mechanism called an Emergency Use Authorization (EUA). The EUA for this test is supported by the [place] of Health and Human Service's (HHS's) declaration that circumstances exist to justify the emergency use of in vitro diagnostics for the detection and/or diagnosis of the virus that causes COVID-19. This EUA will remain in effect (meaning this test can be used) for the duration of the COVID-19 declaration justifying emergency of IVDs, unless it is terminated or revoked by FDA (after which the test may no longer be used). When diagnostic testing is negative, the possibility of a false negative should be considered in the context of a patient's recent exposures and the presence of clinical signs and symptoms consistent with SARS-CoV-2. Performed By: #### C VDTB #### [facility] [address] [place] [address] Dr. Sallie Brennan INFLUENZA A AND B AGon 08-20 [facility] SEE BELOW Normal [facility] Comment on above: Result Comment: Nega tive for Flu A protein angiten. Infection due to Flu A cannot be ruled out. Flu A angiten in the sample may be below the detection limit of the test. Performed By: #### B TEXTILE DESIGNS SALES REPRESENTATIVE, TSH, URIC, LIPID, CMP #### [facility] [address] [place] [address] Dr. Sallie Brennan [facility] SEE BELOW Normal [facility] Comment on above: Result Comment: Nega tive for Flu B protein antigen. Infection due to Flu B cannot be ruled out. Flu B antigen in the sample may be below the detection limit of the test. Performed By: #### B TEXTILE DESIGNS SALES REPRESENTATIVE, TSH, URIC, LIPID, CMP #### [facility] [address] [place] [address] Dr. Sallie Brennan INFLUENZA A AG Negative Normal NEGATIVE SEE COMMENT [facility] Comment on above: Performed By: #### B TEXTILE DESIGNS SALES REPRESENTATIVE, TSH, URIC, LIPID, CMP #### [facility] [address] [place] [address] Dr. Sallie Brennan INFLUENZA B AG Negative Normal NEGATIVE SEE COMMENT [facility] Comment on above: Performed By: #### B TEXTILE DESIGNS SALES REPRESENTATIVE, TSH, URIC, LIPID, CMP #### [facility] [address] [place] [address] Dr. Sallie Brennan INTERNAL CONTROLS Within Normal Limits Normal Wi thin Normal Limits [facility] Comment on above: Performed By: #### B TEXTILE DESIGNS SALES REPRESENTATIVE, TSH, URIC, LIPID, CMP #### [facility] [address] [place] [address] Dr. Sallie Brennan INSULINon 06-10-2022 Insulin 10.9 uIU/mL Normal 2.6-24.9 [facility] Comment on above: Performed By: #### I NSULIN #### [facility] [address] [place] [address] Dr. Sallie Brennan T4, T3U, FTI LABCORPon 06-10 Free Thyroxine Index 2.2 Normal 1.2-4.9 [facility] Comment on above: Performed By: #### T HYLC #### [facility] [address] [place] [address] Dr. Sallie Brennan T3 Uptake 25 % Normal 24-39 [facility] Comment on above: Performed By: #### T HYLC #### [facility] [address] [place] [address] Dr. Sallie Brennan T4 [Mass/Vol] 8.7 ug/dL Normal 4.5-12.0 [facility] Comment on above: Performed By: #### T HYLC #### [facility] [address] [place] [address] Dr. Sallie Brennan BNPon 06-09-2022 Natriuretic peptide B (Bld) [Mass/Vol] 799.0 pg/mL Normal <=1,800.0 [facility] Comment on above: Performed By: #### B TEXTILE DESIGNS SALES REPRESENTATIVE, TSH, URIC, LIPID, CMP #### [facility] [address] [place] [address] Dr. Sallie Brennan CBC AUTO DIFFon 06-09-2022 BASO # 0.1 103/ul Normal 0.0-0.1 [facility] Comment on above: Performed By: #### B TEXTILE DESIGNS SALES REPRESENTATIVE, TSH, URIC, LIPID, CMP #### [facility] [address] [place] [address] Dr. Sallie Brennan Basophils/100 WBC (Bld) 0.9 % Normal 0.2-2.0 [facility] Comment on above: Performed By: #### B TEXTILE DESIGNS SALES REPRESENTATIVE, TSH, URIC, LIPID, CMP #### [facility] [address] [place] [address] Dr. Sallie Brennan EO # 0.2 103/ul Normal 0.0-0.7 [facility] Comment on above: Performed By: #### B TEXTILE DESIGNS SALES REPRESENTATIVE, TSH, URIC, LIPID, CMP #### [facility] [address] [place] [address] Dr. Sallie Brennan Eosinophils/100 WBC (Bld) 3.5 % Normal 0.9-7.0 [facility] Comment on above: Performed By: #### B TEXTILE DESIGNS SALES REPRESENTATIVE, TSH, URIC, LIPID, CMP #### [facility] [address] [place] [address] Dr. Sallie Brennan Erythrocyte distribution width (RBC) [Ratio] 13.8 % Normal 11.0-15.0 [facility] Comment on above: Performed By: #### B TEXTILE DESIGNS SALES REPRESENTATIVE, TSH, URIC, LIPID, CMP #### [facility] [address] [place] [address] Dr. Sallie Brennan Hematocrit (Bld) [Volume fraction] 36.0 % Critically low 42.0-54.0 [facility] Comment on above: Performed By: #### B TEXTILE DESIGNS SALES REPRESENTATIVE, TSH, URIC, LIPID, CMP #### [facility] [address] [place] [address] Dr. Sallie Brennan Hemoglobin (Bld) [Mass/Vol] 11.6 g/dL Critically low 14.0-18.0 [facility] Comment on above: Performed By: #### B TEXTILE DESIGNS SALES REPRESENTATIVE, TSH, URIC, LIPID, CMP #### [facility] [address] [place] [address] Dr. Sallie Brennan IG # 0.01 10e3/ul Normal 0.00-0.03 [facility] Comment on above: Performed By: #### B TEXTILE DESIGNS SALES REPRESENTATIVE, TSH, URIC, LIPID, CMP #### [facility] [address] [place] [address] Dr. Salile Brennan IG % 0.2 % Normal 0.0-0.5 [facility] Comment on above: Performed By: #### B TEXTILE DESIGNS SALES REPRESENTATIVE, TSH, URIC, LIPID, CMP #### [facility] [address] [place] [address] Dr. Sallie Brennan LYMPH # 0.8 103/ul Critically low 1.2-3.8 [facility] Comment on above: Performed By: #### B TEXTILE DESIGNS SALES REPRESENTATIVE, TSH, URIC, LIPID, CMP #### [facility] [address] [place] [address] Dr. Sallie Brennan Lymphocytes/100 WBC (Bld) 14.0 % Critically low 20.5-60.0 [facility] Comment on above: Performed By: #### B TEXTILE DESIGNS SALES REPRESENTATIVE, TSH, URIC, LIPID, CMP #### [facility] [address] [place] [address] Dr. Sallie Brennan MANUAL DIFF REQ NO Normal [facility] Comment on above: Performed By: #### B TEXTILE DESIGNS SALES REPRESENTATIVE, TSH, URIC, LIPID, CMP #### [facility] [address] [place] [address] Dr. Sallie Brennan MCH (RBC) [Entitic mass] 31.4 pg Normal 25.9-34.0 [facility] Comment on above: Performed By: #### B TEXTILE DESIGNS SALES REPRESENTATIVE, TSH, URIC, LIPID, CMP #### [facility] [address] [place] [address] Dr. Sallie Brennan MCHC (RBC) [Mass/Vol] 32.2 g/dL Normal 29.9-35.2 [facility] Comment on above: Performed By: #### B TEXTILE DESIGNS SALES REPRESENTATIVE, TSH, URIC, LIPID, CMP #### [facility] [address] [place] [address] Dr. Sallie Brennan MCV (RBC) [Entitic vol] 97.3 fL Critically high 80.0-94.0 [facility] Comment on above: Performed By: #### B TEXTILE DESIGNS SALES REPRESENTATIVE, TSH, URIC, LIPID, CMP #### [facility] [address] [place] [address] Dr. Sallie Brennan MONO # 0.4 103/ul Normal 0.3-0.8 [facility] Comment on above: Performed By: #### B TEXTILE DESIGNS SALES REPRESENTATIVE, TSH, URIC, LIPID, CMP #### [facility] [address] [place] [address] Dr. Sallie Brennan Monocytes/100 WBC (Bld) 8.2 % Normal 1.7-12.0 [facility] Comment on above: Performed By: #### B TEXTILE DESIGNS SALES REPRESENTATIVE, TSH, URIC, LIPID, CMP #### [facility] [address] [place], [place] [id number] Dr. Sallie Brennan NEUT # 3.9 103/ul Normal 1.4-6.5 [facility] Comment on above: Performed By: #### B TEXTILE DESIGNS SALES REPRESENTATIVE, TSH, URIC, LIPID, CMP #### [facility] [address] [place] [address] Dr. Sallie Brennan Neutrophils/100 WBC (Bld) 73.2 % Normal 43.0-75.0 [facility] Comment on above: Performed By: #### B TEXTILE DESIGNS SALES REPRESENTATIVE, TSH, URIC, LIPID, CMP #### [facility] [address] [place] [address] Dr. Sallie Brennan Platelet mean volume (Bld) [Entitic vol] 9.6 fL Normal 9.5-13.5 [facility] Comment on above: Performed By: #### B TEXTILE DESIGNS SALES REPRESENTATIVE, TSH, URIC, LIPID, CMP #### [facility] [address] [place] [address] Dr. Sallie Brennan PLT 239 103/ul Normal 150-450 [facility] Comment on above: Performed By: #### B TEXTILE DESIGNS SALES REPRESENTATIVE, TSH, URIC, LIPID, CMP #### [facility] [address] [place] [address] Dr. Sallie Brennan RBC 3.70 106/ul Critically low 4.70-6.10 [facility] Comment on above: Performed By: #### B TEXTILE DESIGNS SALES REPRESENTATIVE, TSH, URIC, LIPID, CMP #### [facility] [address] [place] [address] Dr. Sallie Brennan WBC 5.4 103/ul Normal 4.0-11.0 [facility] Comment on above: Performed By: #### B TEXTILE DESIGNS SALES REPRESENTATIVE, TSH, URIC, LIPID, CMP #### [facility] [address] [place] [address] Dr. Sallie Brennan GLYCOHEMOGLOBIN A1Con 2021 ADA RECOMMENDATION SEE BELOW Normal [facility] Comment on above: Result Comment: ADA RECOMMENDED LIMIT 4.0 - 6.0 ADA THERAPEUTIC TARGET < 7.0 ACTION SUGGESTED > 7.0 Performed By: #### B TEXTILE DESIGNS SALES REPRESENTATIVE, TSH, URIC, LIPID, CMP #### [facility] [address] [place], [place] [id number] Dr. Sallie Brennan Glucose [Mass/Vol] 174 mg/dL Normal [facility] Comment on above: Performed By: #### B TEXTILE DESIGNS SALES REPRESENTATIVE, TSH, URIC, LIPID, CMP #### [facility] [address] [place] [address] Dr. Sallie Brennan HbA1c (Bld) [Mass fraction] 7.7 % Critically high 4.5-6.2 [facility] Comment on above: Performed By: #### B TEXTILE DESIGNS SALES REPRESENTATIVE, TSH, URIC, LIPID, CMP #### [facility] [address] [place] [address] Dr. Sallie Brennan LIPID PROFILEon 06-09-2022 CHOL-HDL RATIO NORM SEE BELOW Normal [facility] Comment on above: Result Comment: 3.3 - 4.4 LOW RISK 4.4 - 7.1 AVERAGE RISK 7.1 - 11.0 MODERATE RISK >11.0 HIGH RISK Performed By: #### B TEXTILE DESIGNS SALES REPRESENTATIVE, TSH, URIC, LIPID, CMP #### [facility] [address] [place] [address] Dr. Sallie Brennan Cholesterol [Mass/Vol] 138 mg/dL Normal <=200 [facility] Comment on above: Performed By: #### B TEXTILE DESIGNS SALES REPRESENTATIVE, TSH, URIC, LIPID, CMP #### [facility] [address] [place] [address] Dr. Sallie Brennan Cholesterol in HDL [Mass/Vol] 38 mg/dL Critically low 40-60 [facility] Comment on above: Performed By: #### B TEXTILE DESIGNS SALES REPRESENTATIVE, TSH, URIC, LIPID, CMP #### [facility] [address] [place] [address] Dr. Sallie Brennan Cholesterol in LDL [Mass/Vol] 55.6 mg/dL Normal [facility] Comment on above: Performed By: #### B TEXTILE DESIGNS SALES REPRESENTATIVE, TSH, URIC, LIPID, CMP #### [facility] [address] [place] [address] Dr. Sallie Brennan Cholesterol.total/Cho lesterol in HDL [Mass ratio] 3.6 {ratio} Normal [facility] Comment on above: Performed By: #### B TEXTILE DESIGNS SALES REPRESENTATIVE, TSH, URIC, LIPID, CMP #### [facility] [address] [address] [address] Sallie Brennan HDL NORMAL > or = 60 mg/dl - LO W CARDIOVASCULAR RISK <40 mg/dl - HIGH CARDIOVASCULAR RISK Normal [facility] Comment on above: Performed By: #### B TEXTILE DESIGNS SALES REPRESENTATIVE, TSH, URIC, LIPID, CMP #### [facility] [address] [place] [address] Dr. Sallie Brennan LDL CALC NORMAL SEE BELOW Normal [facility] Comment on above: Result Comment: <100 mg/dl OPTIMAL 100 - 129 mg/dl NEAR OR ABOVE OPTIMAL 130 - 159 mg/dl BORDERLINE HIGH 160 - 189 mg/dl HIGH >190 mg/dl VERY HIGH Performed By: #### B TEXTILE DESIGNS SALES REPRESENTATIVE, TSH, URIC, LIPID, CMP #### [facility] [address] [place] [address] Dr. Sallie Brennan Triglyceride [Mass/Vol] 222 mg/dL Critically high <=150 [facility] Comment on above: Performed By: #### B TEXTILE DESIGNS SALES REPRESENTATIVE, TSH, URIC, LIPID, CMP #### [facility] [address] [place] [address] Dr. Sallie Brennan VLDL CALC 44.4 mg/dL Normal [facility] Comment on above: Performed By: #### B TEXTILE DESIGNS SALES REPRESENTATIVE, TSH, URIC, LIPID, CMP #### [facility] [address] [place] [address] Dr. Sallie Brennan PROF 14(COMP METB)on 022 Albumin [Mass/Vol] 3.8 g/dL Normal 3.4-5.0 [facility] Comment on above: Performed By: #### B TEXTILE DESIGNS SALES REPRESENTATIVE, TSH, URIC, LIPID, CMP #### [facility] [address] [place] [address] Dr. Sallie Brennan Albumin/Globulin [Mass ratio] 1.2 {ratio} Normal [facility] Comment on above: Performed By: #### B TEXTILE DESIGNS SALES REPRESENTATIVE, TSH, URIC, LIPID, CMP #### [facility] [address] [place] [address] Dr. Sallie Brennan ALP [Catalytic activity/Vol] 51 U/L Normal 46-116 [facility] Comment on above: Performed By: #### B TEXTILE DESIGNS SALES REPRESENTATIVE, TSH, URIC, LIPID, CMP #### [facility] [address] [place] [address] Dr. Sallie Brennan ALT [Catalytic activity/Vol] 34 U/L Normal 16-63 [facility] Comment on above: Performed By: #### B TEXTILE DESIGNS SALES REPRESENTATIVE, TSH, URIC, LIPID, CMP #### [facility] [address] [place] [address] Dr. Sallie Brennan Anion gap [Moles/Vol] 13.0 mmol/L Normal [facility] Comment on above: Performed By: #### B TEXTILE DESIGNS SALES REPRESENTATIVE, TSH, URIC, LIPID, CMP #### [facility] [address] [place] [address] Dr. Sallie Brennan AST [Catalytic activity/Vol] 38 U/L Critically high 15-37 [facility] Comment on above: Performed By: #### B TEXTILE DESIGNS SALES REPRESENTATIVE, TSH, URIC, LIPID, CMP #### [facility] [address] [place] [address] Dr. Sallie Brennan Bilirubin [Mass/Vol] 0.7 mg/dL Normal 0.2-1.0 [facility] Comment on above: Performed By: #### B TEXTILE DESIGNS SALES REPRESENTATIVE, TSH, URIC, LIPID, CMP #### [facility] [address] [place] [address] Dr. Sallie Brennan Calcium [Mass/Vol] 9.5 mg/dL Normal 8.5-10.1 [facility] Comment on above: Performed By: #### B TEXTILE DESIGNS SALES REPRESENTATIVE, TSH, URIC, LIPID, CMP #### [facility] [address] [place] [address] Dr. Sallie Brennan Chloride [Moles/Vol] 105 mmol/L Normal 98-107 [facility] Comment on above: Performed By: #### B TEXTILE DESIGNS SALES REPRESENTATIVE, TSH, URIC, LIPID, CMP #### [facility] [address] [place] [address] Dr. Sallie Brennan CO2 [Moles/Vol] 26.5 mmol/L Normal 21.0-32.0 [facility] Comment on above: Performed By: #### B TEXTILE DESIGNS SALES REPRESENTATIVE, TSH, URIC, LIPID, CMP #### [facility] [address] [address] [address] Sallie Brennan Creatinine [Mass/Vol] 0.98 mg/dL Normal 0.70-1.30 [facility] Comment on above: Performed By: #### B TEXTILE DESIGNS SALES REPRESENTATIVE, TSH, URIC, LIPID, CMP #### [facility] [address] [address] [address] Sallie Brennan EGFR-AF INDIAN >60 Normal >=60 [facility] Comment on above: Performed By: #### B TEXTILE DESIGNS SALES REPRESENTATIVE, TSH, URIC, LIPID, CMP #### [facility] [address] [place] [address] Dr. Sallie Brennan EGFR-NON AF INDIAN >60 Normal >=60 [facility] Comment on above: Performed By: #### B TEXTILE DESIGNS SALES REPRESENTATIVE, TSH, URIC, LIPID, CMP #### [facility] [address] [place] [address] Dr. Sallie Brennan Globulin (S) [Mass/Vol] 3.2 g/dL Normal [facility] Comment on above: Performed By: #### B TEXTILE DESIGNS SALES REPRESENTATIVE, TSH, URIC, LIPID, CMP #### [facility] [address] [place] [address] Dr. Sallie Brennan Glucose [Mass/Vol] 168 mg/dL Critically high 74-106 [facility] Comment on above: Performed By: #### B TEXTILE DESIGNS SALES REPRESENTATIVE, TSH, URIC, LIPID, CMP #### [facility] [address] [place] [address] Dr. Sallie Brennan Potassium [Moles/Vol] 4.5 mmol/L Normal 3.5-5.1 [facility] Comment on above: Performed By: #### B TEXTILE DESIGNS SALES REPRESENTATIVE, TSH, URIC, LIPID, CMP #### [facility] [address] [place] [address] Dr. Sallie Brennan Protein [Mass/Vol] 7.0 g/dL Normal 6.4-8.2 [facility] Comment on above: Performed By: #### B TEXTILE DESIGNS SALES REPRESENTATIVE, TSH, URIC, LIPID, CMP #### [facility] [address] [place] [address] Dr. Sallie Brennan Sodium [Moles/Vol] 140 mmol/L Normal 136-145 [facility] Comment on above: Performed By: #### B TEXTILE DESIGNS SALES REPRESENTATIVE, TSH, URIC, LIPID, CMP #### [facility] [address] [place] [address] Dr. Sallie Brennan Urea nitrogen [Mass/Vol] 19.0 mg/dL Critically high 7.0-18.0 [facility] Comment on above: Performed By: #### B TEXTILE DESIGNS SALES REPRESENTATIVE, TSH, URIC, LIPID, CMP #### [facility] [address] [place] [address] Dr. Sallie Brennan Urea nitrogen/Creatinine [Mass ratio] 19.4 mg/mg Normal [facility] Comment on above: Performed By: #### B TEXTILE DESIGNS SALES REPRESENTATIVE, TSH, URIC, LIPID, CMP #### [facility] [address] [place] [address] Dr. Sallie Brennan TSHon 06-09-2022 TSH 1.522 uIU/mL Normal 0.358-3.74 0 [facility] Comment on above: Performed By: #### B TEXTILE DESIGNS SALES REPRESENTATIVE, TSH, URIC, LIPID, CMP #### [facility] [address] [place] [address] Dr. Sallie Brennan URIC ACID SERUMon 06-09-2022 Urate [Mass/Vol] 6.3 mg/dL Normal 3.5-7.2 [facility] Comment on above: Performed By: #### B TEXTILE DESIGNS SALES REPRESENTATIVE, TSH, URIC, LIPID, CMP #### [facility] [address] [place] [address] Dr. Sallie Brennan NM PET CT SKULL-MID THIGH-MCKENNA BSEQUENTon 09-30-[address] SKULL-MID THIGH-SUBSEQUENT [facility] Department of Radiology [address] [place] [address] Patient Name: LUCIANA BUENROSTRO : 1945 Sex: M Age: Race: White Pt. 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 QUESTION FOR THE RADIOLOGIST: , Height (ft.): 5 ft 11 in , Weight (lbs): 366 , Date of Service: 09/30/2021 , Height (ft.): 5 ft 11 in , Weight (lbs): 366 , Date of Service: 09/30/2021 , , , ...More In Sending System PROTOCOL: The patient was injected intravenously with13.1 millicuries of fluorine 18-FDG. Blood glucose level tir325 mg/dL at the time of tracer administration. PET scan and CT data was acquired from skull base to the upper thighs and images were reconstructed in orthogonal projections. Multiplanar reformats were utilized. Attenuation corrected images were constructed using CT data. Fused images were reviewed. RADIOPHARMACEUTICAL: FDG/ 4-40 mCi, 13.076 Millicuries, Intravenous COMPARISON: 11/19/2020 FINDINGS: PET/CT examination revealed physiologic tracer distribution within the liver, spleen, bowel loops and physiologic excretion by the kidneys with intense activation in the urinary bladder. No pathologic uptake is seen to suggest recurrent tumor or metastatic disease. Evaluation of the accompanying CT scan revealed uncomplicated sigmoid diverticulosis. Mild vascular calcification. Small ventral hernia containing only fat and bowel loops with wide neck and no evidence of obstruction. No evidence of renal stones. There is small gallstone. Lung windows did not reveal any parenchymal consolidation but there is platelike atelectasis in the right middle lobe and mild dependent atelectasis bilaterally. IMPRESSION: Negative PET CT scan. No FDG avid lesions are visualized to suspect recurrent tumor or metastatic disease. Uncomplicated sigmoid diverticulosis and small gallstone. Right middle lobe atelectasis. Vascular calcifications. Electronically signed: Mirna Talamantes. Transcribed by: [email or web address], User Resident: Electronically Signed by: MIRNA TALAMANTES @ 10/01/2021 10:34 AM Normal [facility] Comment on above: Order Comment: , Bradleyi ght (ft.): 5 ft 11 in , Weight (lbs): 366 , Date of Service: 09/30/2021 , Height (ft.): 5 ft 11 in , Weight (lbs): 366 , Date of Service: 09/30/2021 , , , Ordering Provider - MAGALY SANTILLAN MD , POC GLUCOSE NCon 09-30-2021 Glucose [Mass/Vol] 126 mg/dL High 70-100 [facility] Comment on above: Performed By: #### [id number] #### [address] [place] [address], [facility] CT CHEST WO CONTRASTon 05-27 CT CHEST WO CONTRAST [facility] Department of Radiology [address] [place] [id number] Patient Name: LUCIANA BUENROSTRO : 1945 Sex: M Age: Race: White Pt. Location: 29 Patient Status: D Ordered Date: 05/27/2021 5:00:00 AM Completed Date: 05/27/2021 10:09 AM Requesting Provider: MAGALY SANTILLAN Attending Provider: MAGALY SANTILLAN Report Copy To: GEOVANNA BUNDY Signs & Symptoms: C78.01 Secondary malignant neoplasm of right lung I10 History: [place] NPC Req. 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 TECHNIQUE: Multidetector CT axial slices of the chest without IV contrast. Multiplanar reformats were performed and viewed on a separate workstation and reviewed to further define anatomy and possible pathology. COMPARISON: CT chest October 22, 2020. FINDINGS: The thyroid and the thoracic inlet appear unremarkable. The central airways are patent. The thoracic aorta is nonaneurysmal. The noncontrasted pulmonary arteries are unremarkable. No mediastinal adenopathy. Moderately severe coronary artery calcification as well as calcification of the aortic valve annulus. No cardiomegaly, trace pericardial effusion. No pneumothorax or pleural effusion. Masslike opacity present in the right upper lobe, previously on image 171 is present today and appears similar on image 159. Accompanying right upper lobe scarring persists. Linear scarring in both bases also remains. No new focal nodules are identified. The chest wall appears unremarkable. The study continued into the upper abdomen appears unremarkable. Study viewed at bone window appears unremarkable. IMPRESSION: Masslike opacity in the right upper lobe with the patient scarring appears unchanged prior study. No new lung findings. All CT scans at this facility use dose modulation, iterative reconstruction, and/or weight based dosing when appropriate to reduce radiation dose to as low as reasonably achievable Electronically signed: Gemma Mace. Transcribed by: [email or web address], User Resident: Electronically Signed by: GEMMA MACE @ 05/28/2021 10:15 AM Normal [facility] NM PET CT SKULL-MID THIGH-MCKENNA BSEQUENTon 11-19-[address] SKULL-MID THIGH-SUBSEQUENT [facility] Department of Radiology [address] [place] [address] Patient Name: LUCIANA BUENROSTRO : 1945 Sex: M Age: Race: White Pt. 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 History: [place] NPC PER MEDICARE ABN PASSED [phone] 11-05-20 [place] Comments: , F/U right upper lobe lung lesion , Appointment Date: 11/19/2020 , Appointment Time: 1030/12 , Height (ft.): 5 ft 11 in , Weight (lbs): 371 , F/U right upper lobe lung lesion , Appointment Date: 11/19/2020 , Appointment Time: 1030/12 , Height (ft.): 5 ft 11 in , Weight (lbs): 371 , , , Ordering Provider - MAGALY SANTILLAN MD , Exam: NM PET CT SKULL-MID THIGH-SUBSEQUENT NM PET CT SKULL-MID THIGH-SUBSEQUENT 11/19/2020 1:44 PM CLINICAL INDICATIONS: 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 Patient injected with 11.243 mCi of FDG for imaging. QUESTION FOR THE RADIOLOGIST: , F/U right upper lobe lung lesion , Appointment Date: 11/19/2020 , Appointment Time: 1030/ , Height (ft.): 5 ft 11 in , Weight (lbs): 371 , F/U right upper lobe lung lesion , Appointment Date: 11/19/2020 , Appointment Time: 1030/12 , Height (ft.): 5 ft 11 in , Weight (lbs): 371 , , , Ordering Provider - MAGALY SANTILLAN MD , PROTOCOL: The patient was injected intravenously with11.243 millicuries of fluorine 18-FDG. Blood glucose level vey929 mg/dL at the time of tracer administration. PET scan and CT data was acquired from skull base to mid thigh images were reconstructed in orthogonal projections. Multiplanar reformats were utilized. Attenuation corrected images were constructed using CT data. Fused images were reviewed. RADIOPHARMACEUTICAL: FDG/ 4-40 mCi, 11.243 Millicuries, Intravenous COMPARISON: PET/CT fusion study July 04, 2020. FINDINGS: Scarring is again present in the upper lobe of the right lung. Activity measured at the base of the scar on CT image 250 on the prior study with a maximum SUV of 2.3 has a maximum SUV today of 1.[address] image 103 of the dedicated chest study. Scarring on CT appears similar to the prior study. No new abnormal foci of activity are noted in the lungs or mediastinum. Punctate foci of activity in liver may represent artifact with a different distribution than on the prior study. Cholelithiasis again identified on CT IMPRESSION: PET activity in area of scarring in the right upper lobe continues to diminish. No evidence of metastasis. Electronically signed: Gemma Mace. Transcribed by: [email or web address], User Resident: Electronically Signed by: GEMMA MACE @ 11/20/2020 10:34 AM Normal [facility] Comment on above: Order Comment: , F/U right upper lobe lung lesion , Appointment Date: 11/19/2020 , Appointment Time: 1030/12 , Height (ft.): 5 ft 11 in , Weight (lbs): 371 , F/U right upper lobe lung lesion , Appointment Date: 11/19/2020 , Appointment Time: 1030/12 , Height (ft.): 5 ft 11 in , Weight (lbs): 371 , , , Ordering Provider - MAGALY SANTILLAN MD , POC GLUCOSE NCon 11-19-2020 Glucose [Mass/Vol] 138 mg/dL High 70-100 [facility] Comment on above: Performed By: #### 8 [id number] #### [address] CHEST WO CONTRASTon 10-22 CT CHEST WO CONTRAST [facility] Department of Radiology [address] [place] [address] Patient Name: LUCIANA BUENROSTRO : 1945 Sex: M Age: Race: White Pt. 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 Santillan PROTOCOL: Axial CT images of the chest were obtained without IV contrast. TECHNIQUE: Multidetector CT axial slices of the chest without IV contrast. Multiplanar reformats were performed and viewed on a separate workstation and reviewed to further define anatomy and possible pathology. COMPARISON: CT chest June 25, 2020. FINDINGS: The thyroid and the thoracic inlet appear unremarkable. The central airways are patent. The thoracic aorta is nonaneurysmal. The nonopacified pulmonary arteries appear unremarkable. No mediastinal adenopathy identified. Moderate to severe coronary artery calcification, no cardiomegaly or pericardial effusion. No pneumothorax or pleural effusions. Masslike opacity in the right upper lobe adjacent to the minor fissure shows no interval change in size with somewhat increased atelectasis present lateral to the opacity. Linear scarring in the base of the left lower lobe remains. The chest wall appears unremarkable. The study continued into the upper abdomen shows a gallstone within the gallbladder lumen. Study viewed at bone window is unremarkable. IMPRESSION: * Masslike opacity in the right upper lobe adjacent to minor fissure appears unchanged. Adjacent atelectasis appears increased. * Linear scarring in base of left lower lobe. * No new lung nodules identified. * Cholelithiasis. All CT scans at this facility use dose modulation, iterative reconstruction, and/or weight based dosing when appropriate to reduce radiation dose to as low as reasonably achievable Electronically signed: Gemma Mace. Transcribed by: [email or web address], User Resident: Electronically Signed by: GEMMA MACE @ 10/23/2020 09:24 AM Normal [facility] Comment on above: Order Comment: No co ntrast on chest CT per Dr. Santillan CT UPPER EXTREMITY W CONTRAS T RIGHTon 10-22-2020 CT UPPER EXTREMITY W CONTRAST RIGHT [facility] Department of Radiology [address] [place] [id number] Patient Name: LUCIANA BUENROSTRO : 1945 Sex: M Age: Race: White Pt. Location: 29 Patient Status: D Ordered Date: 10/22/2020 5:00:00 AM Completed Date: 10/22/2020 01:38 PM Requesting Provider: MAGALY SANTILLAN Attending Provider: MAGALY SANTILLAN Report Copy To: GEOVANNA BUNDY Signs & Symptoms: C49.11 Malig neoplm of [facility] and soft tiss of r Dizzion, inc shldr I10 History: Jacinta NPC PER MEDICARE ABN PASSED [phone] 10-08-20 CANDEL[place]IA Comments: Exam: CT UPPER EXTREMITY W CONTRAST RIGHT CT UPPER EXTREMITY W CONTRAST RIGHT 10/22/2020 1:38 PM CLINICAL INDICATION: C49.11 Malig neoplm of conn and soft tiss of r upr limb, inc shldr I10 TECHNOLOGIST COMMENTS: hx right upper arm ca x 2 years ago f/u study QUESTION FOR THE RADIOLOGIST: PROTOCOL: Axial CT images of the extremity were obtained with IV contrast. CONTRAST: Contrast: OMNIPAQUE 350 (LOCM), 100 milliliter, Intravenous TECHNIQUE: Multiple detector CT axial slices of the right shoulder were obtained with IV contrast. Multiplanar reformats were performed and viewed on a separate workstation and reviewed to further define anatomy and possible pathology. All CT scans at this facility use dose modulation, iterative reconstruction, and/or weight based dosing when appropriate to reduce radiation dose to as low as reasonably achievable COMPARISON: February 26, 2019 FINDINGS: There are postsurgical changes identified as previously documented in the posterior aspect of the right arm adjacent to the humerus. There is scarring and traction skin and subcutaneous tissue which is likely chronic. There are multiple densities likely reflecting previous surgical material. There is no recurrent or increasing mass. Presence of a small lesion may be overlooked on this examination. There is no obvious osseous destruction. No lymphadenopathy. Some scarring in the right lung is identified. IMPRESSION: No evidence of recurrent mass or residual mass noted when compared to the prior study. There is some scarring and postsurgical changes as previously documented. Electronically signed: Rafael Mcginnis. Transcribed by: [email or web address], User Resident: Electronically Signed by: RAFAEL MCGINNIS @ 10/23/2020 10:23 AM Normal [facility] SURGICAL PATHOLOGYon 018 SURGICAL PATHOLOGY Specimen #: [id number] Physician: JESSICA CARO M.D. FINAL DIAGNOSISA. 29 slides ([id number]): Soft tissue, right arm, deep, excision - Myxofibrosarcoma, high-grade.COMMENTThank you for sending in consultation this deep right arm soft tissue massin a 72-year-old man.Histologic sections show a well-demarcated lesion composed of highlypleomorphic and atypical spindled cells. Necrosis is easily identified.Numerous mitotic figures are seen. The spindled cells appear to grow inloosely formed fascicles in some places and other times are seen insomewhat myxoid nodules accompanied by curvilinear vessels. Providedimmunohistochemical stains show that the cells are positive for CD31 andCD99 while negative for myogenin, CD34, CD45, DOMINICK, SMA, S100,pancytokeratin and SOX10. Additional immunohistochemical stains performedat the [facility] show that the cells are also negative for STAT6,ERG and MDM2. In summary, this is a high-grade pleomorphic sarcoma. The presence of asignificant myxoid component with prominent curvilinear vessels makes thedesignation of myxofibrosarcoma, high-grade (grade 3 of 3), mostappropriate.Thank you for the opportunity to provide an opinion in this case. Pleasecall the Bone and Soft Tissue Pathology Consultation Service at [phone] with questions or if additional follow-up information becomesavailable regarding this patient. This case was reviewed in conjunctionwith the Bone and Soft Tissue Pathology fellow, Sanjeev Ross MD.For test results using laboratory developed tests (LDT) in immunohistology:Positive and negative controls stain appropriately. Performancecharacteristics of immunohistochemical, immunofluorescent and chromogenicin-situ hybridization tests have been determined by [facility] [place] ([facility]) maryellen manner consistent with CLIA requirements. One or more of these tests havenot been cleared or approved by the FDA. -[facility] is regulated under CLIA asqualified to perform high-complexity testing. These tests are used forclinical purposes. They should not be regarded as investigational or forresearch.EDGAR/PRIYANK/shanthi 03/28/18tecarl Green M.D.(Electronic Signature) SPECIME N SUBMITTEDA: 29 SLIDES ([id number]) CLINICAL DATANone provided.Patient ID #: Date of Report: 03/28/2018Date of Procedure: 03/22/2018Date of Receipt: 03/22/2018Submitted by: JESSICA CARO M.D.Location: Diagnostic interpretation performed at [facility] [place], [address] [place] [address]. Normal [facility] Comment on above: Performed By: #### S ####See report for performing lab information. Vital Signs Date Time Vital Sign Value Performing Clinician Facility 09-26-2023 13:15-0500 Body height 180.34 cm Yulissa Hopper Other [facility] Other 09-26-2023 13:15-0500 Body mass index (BMI) [Ratio] 50.76 kg/m2 Yulissa Hopper Other [facility] Other 09-26-2023 13:15-0500 Body weight 165.11 kg Yulissa Hopper Other [facility] Other 09-26-2023 13:15-0500 Diastolic blood pressure 67 mm[Hg] Yulissa Hopper Other [facility] Other 09-26-2023 13:15-0500 SaO2% (BldA) [Mass fraction] 99 % Yulissa Hopper Other [facility] Other 09-26-2023 13:15-0500 Systolic blood pressure 130 mm[Hg] Yulissa Hopper Other [facility] Other 04-14-2022 15:00-0400 Body height 180.34 cm Yulissa Hopper Other [facility] Other 04-14-2022 15:00-0400 Body mass index (BMI) [Ratio] 49.51 kg/m2 Yulissa Hopper Other [facility] Other 04-14-2022 15:00-0400 Body temperature 96.6 [degF] Yulissa Hopper Other [facility] Other 04-14-2022 15:00-0400 Body weight 161.03 kg Yulissa Hopper Other [facility] Other 04-14-2022 15:00-0400 Diastolic blood pressure 76 mm[Hg] Yulissa Hopper Other [facility] Other 04-14-2022 15:00-0400 SaO2% (BldA) [Mass fraction] 97 % Yulissa Hopper Other [facility] Other 04-14-2022 15:00-0400 Systolic blood pressure 136 mm[Hg] Yulissa Hopper Other [facility] Other Encounters Encounter Date Encounter Type Care Provider Facility Start: 09-26-2023 End: 09-26-2023 ambulatory Yulissa Hopper Facility:[facility] Start: 09-26-2023 Office outpatient visit 25 minutes Yulissa Hopper [facility] Start: 07-20-2023 End: 07-20-2023 ambulatory JOHANN [facility] Start: 06-23-2023 End: 06-23-2023 ambulatory Farnaz Ruggiero Facility:[facility] Start: 06-23-2023 End: 06-23-2023 ambulatory MD Geovanna Bundy Work Phone: [facility] Work Phone: Start: 06-23-2023 End: 06-23-2023 Patient encounter procedure MD Geovanna Bundy Work Phone: [facility] Work Phone: Start: 06-14-2023 End: 06-14-2023 ambulatory [facility] Start: 04-11-2023 End: 04-11-2023 Emergency department patient visit EDWARD PERSON Facility:[facility] Start: 01-06-2023 End: 01-07-2023 ambulatory GEOVANNA HOY Facility:[facility] Start: 10-11-2022 End: 10-11-2022 ambulatory [facility] Start: 10-11-2022 End: 10-12-2022 [facility] Start: 09-22-2022 End: 09-22-2022 ambulatory [facility] Start: 08-23-2022 End: 08-23-2022 ambulatory GEOVANNA HOY Facility:[facility] Start: 08-21-2022 End: 08-22-2022 ambulatory GEOVANNA HOY Facility:[facility] Start: 08-20-2022 End: 08-20-2022 ambulatory GEOVANNA HOY Facility:[facility] Start: 06-09-2022 End: 06-10-2022 ambulatory GEOVANNA HOY Facility:[facility] Start: 04-14-2022 End: 04-14-2022 ambulatory Yulissa Hopper Other [facility] Other Start: 04-14-2022 Office outpatient visit 25 minutes Yulissa Hopper [facility] Start: 03-01-2022 ambulatory BALJINDER Cleaning lity:[facility] Start: 09-30-2021 End: 10-01-2021 ambulatory MAGALY SANTILLAN Facility:[facility] Procedures Date Procedure Procedure Detail Performing Clinician Start: 10-11-2022 Follow-up visit Follow-up MAGALY SANTILLAN Start: 06-09-2022 PSA screening GEOVANNA IRAHETA Comment on above: Performed By: #### P [facility] #### [facility] [address] [place] [address] Dr. Sallie Brennan Payers Date Payer Category Payer Self-pay [id number] 1960 Medicare [id number] 1960 Unknown [id number] 1945 Unknown [id number] 2.16.8 [id number] 1944 Unknown [id number] 2.16.84 [id number] 1944 Unknown [id number] 2.16.84 [id number] 1944 Unknown [id number] 2.16.84 [id number] 1944 Unknown [id number] 2.16.84 [id number] 1944 Unknown [id number] 2.16.84 [id number] 1944 Unknown [id number] 2.16.84 [id number] 1944 Unknown [id number] 2.16.8 [id number] Unknown [id number] 2.16.8 [id number] Unknown [id number] 2.16.8 [id number] Social History Date Type Detail Facility Unknown if ever smoked [facility] Other Sex Assigned At Sex Assigned At Bir th [facility] Other Start: 1945 Sex Assigned At Male F [facility] Evaluation note 09-26-2023 Note Date & Type Note Facility 09-26-2023 Evaluation note Encounter Date Diagnosis Assessment Notes Sep, Obstructive sleep apnea (ICD-10 - G47.33) Fortunately, patient is using and benefiting from treatment. Download was reviewed with patient. His AHI is slightly elevated at 7.3, however he does have a significant mask leak with his current mask. In addition, it appears that his pressure settings are not optimal for his needs. Therefore, I will adjust his pressure settings to 10-15 cm, as well as recommend a mask fitting. Mask styles were reviewed at great length.. A prescription was sent to the [employer] for new supplies throughout the year, as well as the orders for pressure changes and mask fitting. We will go forward with a download in 2 month to reevaluate NICKI. He was encouraged to continue to use his machine nightly throughout the entire night as this does provide clinical benefit. He will follow-up in sleep clinic in 1 year or sooner pending results of download. Sep, Paroxysmal a-fib (ICD-10 - I48.0) Recurrence rates after cardioversion are nearly doubled in atrial fibrillation patients with untreated NICKI, so controlling the patient's sleep apnea could have positive effects. In addition, rate control tends to be easier when total adrenergic load is decreased with controlled apnea. Sep, Insufficient sleep syndrome (ICD-10 - F51.12) The patient is encouraged to get adequate sleep time. Discussed the risk factors of insufficient sleep, including increased daytime fatigue, higher risk of work and driving accidents, decreased metabolic rate, higher risk of alzheimer's disease, etc. Pt has a tendency to nap in his chair, then will get up in the middle of the night and go to bed and then put his mask on, which counts for the low compliance. Encouraged patient to use the machine during naps as well to get more restful sleep. Sep, BMI 50.0-59.9, adult (ICD-10 - Z68.43) The positive effects of weight loss on NICKI were reviewed. It was advised to follow diet modification and increase activity as tolerated Sep, Other Call if any questions or problems. For Sleep Apnea: Patient is advised to work on healthy diet choices and appropriate servings, weight control, regular exercise as directed, and reduce fat intake. Use machine regularly, and keep up with mask changes as needed. Call if problems with mask toleration, increased sleepiness, or poor response to treatment. Take medication as prescribed, keep follow up appointments, get any testing that's been ordered in a timely fashion. Do not smoke. [facility] Other Progress note 07-20-2023 Note Date & Type Note Facility 07-20-[address] [facility] SUBJECTIVE Chief Complaint Patient presents with Congestive Heart Failure Hypertension Luciana Buenrostro is a 77 y.o. male here for follow-up. His home health aide Nikita present during visit as well. HPI PMHx: HFpEF, a.fib, HTN, HLD, DM type II, CKD He has been feeling well. After his last visit with cardiology, we had asked him to reduce his potassium to once daily. He states he thinks he also stopped taking lisinopril at this time. Weight is averaging 350-360. His BLE edema has been controlled. Denies CP, dyspnea, orthopnea, PND, dizziness/LH, syncope. 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) Diastolic heart failure (CMS/HCC) Disorder of sacrum Glaucoma Hypertensive disorder Spinal stenosis of lumbar region without neurogenic claudication Lumbosacral spondylosis without myelopathy Mass of upper limb Right inguinal hernia Sarcoma (CMS/HCC) Secondary malignant neoplasm of right lung (CMS/HCC) Essential (primary) hypertension Unspecified asthma, uncomplicated Sepsis due to methicillin resistant Staphylococcus aureus (CMS/HCC) Other pneumonia, unspecified organism Muscle weakness (generalized) Morbid (severe) obesity due to excess calories (CMS/HCC) Major depressive disorder, recurrent, unspecified (CMS/HCC) Difficulty in walking, not elsewhere classified Closed fracture of left hip (CMS/HCC) Chronic pain syndrome Chronic kidney disease, stage 2 (mild) Cellulitis of left lower limb Cellulitis of right lower limb Anemia, unspecified Closed fracture of distal end of left radius with routine healing Benign hypertensive heart disease with heart failure (CMS/HCC) Mixed hyperlipidemia Past Medical History: Diagnosis Date Atrial fibrillation (CMS/HCC) CHF (congestive heart failure) (CMS/HCC) Diabetes mellitus (CMS/HCC) Hyperlipidemia Hypertension Sarcoma (CMS/HCC) Sarcoma right arm Sleep apnea Family History Problem Relation Name Age of Onset Heart failure Mother Stroke Mother Cancer Father Heart attack Paternal Grandfather Social History Tobacco Use Smoking status: Former Types: Cigarettes Smokeless tobacco: Never Vaping Use Vaping Use: Never used Substance Use Topics Alcohol use: Not Currently Drug use: Never Allergies Allergen Reactions Sulfa (Sulfonamide Antibiotics) Rash ROS Cardiovascular: Positive for leg swelling. All other systems reviewed and are negative. OBJECTIVE Visit Vitals BP 129/62 (BP Location: Right arm, Patient Position: Sitting) Pulse 57 Ht 1.803 m (5' 11 ) Wt (!) 162 kg (357 lb) SpO2 98% BMI 49.79 kg/m??? Smoking Status Former BSA 2.85 m??? Medications: Current Outpatient Medications: amLODIPine (Norvasc) 10 mg tablet, amlodipine 10 mg tablet Take 1 tablet every day by oral route for 90 days., Disp: , Rfl: apixaban (Eliquis) 5 mg tablet, Eliquis 5 mg tablet Take 1 tablet twice a day by oral route for 30 days., Disp: , Rfl: aspirin 81 mg EC tablet, in the morning., Disp: , Rfl: atorvastatin (Lipitor) 20 mg tablet, atorvastatin 20 mg tablet Take 1 tablet every day by oral route for 90 days., Disp: , Rfl: cetirizine (ZyrTEC) 10 mg tablet, 1 (one) time each day at the same time., Disp: , Rfl: cholecalciferol (Vitamin D-3) 25 MCG (1000 UT) capsule, 1 capsule in the morning., Disp: , Rfl: DULoxetine (Cymbalta) [address] capsule, duloxetine 30 mg capsule,delayed release Take 1 capsule every day by oral route for 90 days., Disp: , Rfl: ferrous sulfate 325 (65 Fe) MG tablet, in the morning., Disp: , Rfl: furosemide (Lasix) 40 mg tablet, Take 40 mg by mouth in the morning., Disp: , Rfl: glipiZIDE (Glucotrol) 10 mg tablet, in the morning., Disp: , Rfl: hydrALAZINE (Apresoline) 100 mg tablet, hydralazine 100 mg tablet Take 1 tablet 3 times a day by oral route for 90 days., Disp: , Rfl: labetalol (Normodyne) 100 mg tablet, Take 100 mg by mouth twice a day., Disp: , Rfl: lansoprazole (Prevacid) [address] capsule, lansoprazole 30 mg capsule,delayed release Take 1 capsule every day by oral route for 90 days., Disp: , Rfl: Lantus Solostar U-100 Insulin 100 unit/mL (3 mL) pen, INJECT TEN UNITS SUBCUTANEOUSLY TWICE DAILY, Disp: , Rfl: metFORMIN (Glucophage) 1,000 mg tablet, metformin 1,000 mg tablet Take 1 tablet twice a day by oral route for 90 days., Disp: , Rfl: multivitamin capsule, Take 1 capsule by mouth in the morning., Disp: , Rfl: pioglitazone (Actos) 30 mg tablet, Take 30 mg by mouth in the morning., Disp: , Rfl: potassium chloride CR (Klor-Con) 10 mEq ER tablet, Take 10 mEq by mouth in the morning., Disp: , Rfl: pregabalin (Lyrica) 75 mg capsule, Take 75 mg by mouth 3 times a day., Disp: , Rfl: spironolactone (Aldactone) 25 mg tablet, Take 25 mg by mouth in the morning., (more content not included)... [facility] Progress note 07-20-2023 Note Date & Type Note Facility 07-20-2023 Note Patient here for 1 m o follow up HFpEF, hypertension, hyperlipidemia, and afib. Potassium was reduced to 10mEq daily at last visit. Follow up BMP hasn't been drawn yet. He is no longer taking lisinopril, but PCP has added spironolactone. Denies chest pain, SOB, palpitations, falls, and bleeding on Eliquis. Review of Systems Cardiovascular: Positive for leg swelling. All other systems reviewed and are negative. [facility] Progress note 06-14-2023 Note Date & Type Note Facility 06-14-2023 Note Cardiology Follow Up Progress Note Chief Complaint: clinic follow up HPI: Jael Buenrostro is a 77 y.o. male with a past medical history including HTN, HLD, Afib, and HFpEF. Patient presents to cardiology clinic for routine follow-up. Patient was admitted to [facility] in March for volume overload. Patient states that he was diuresed and discharged. He reports feeling improved since hospitalization. He denies any cardiac complaints or concerns at the present time. He denies any chest pain. He denies any any worsening lower extremity edema or orthopnea. No paroxysmal nocturnal dyspnea. He believes that his weight has been stable. However, he does not check it on a regular basis Cardiology ROS: 10 Point ROS is performed and is negative unless otherwise specified in HPI Medications Current Outpatient Medications on File Prior to Visit Medication Sig Dispense Refill amLODIPine (Norvasc) 10 mg tablet amlodipine 10 mg tablet Take 1 tablet every day by oral route for 90 days. apixaban (Eliquis) 5 mg tablet Eliquis 5 mg tablet Take 1 tablet twice a day by oral route for 30 days. aspirin 81 mg EC tablet in the morning. atorvastatin (Lipitor) 20 mg tablet atorvastatin 20 mg tablet Take 1 tablet every day by oral route for 90 days. cetirizine (ZyrTEC) 10 mg tablet 1 (one) time each day at the same time. cholecalciferol (Vitamin D-3) 25 MCG (1000 UT) capsule 1 capsule in the morning. DULoxetine (Cymbalta) [address] capsule duloxetine 30 mg capsule,delayed release Take 1 capsule every day by oral route for 90 days. ferrous sulfate 325 (65 Fe) MG tablet in the morning. furosemide (Lasix) 40 mg tablet Take 40 mg by mouth in the morning and at bedtime. glipiZIDE (Glucotrol) 10 mg tablet in the morning. hydrALAZINE (Apresoline) 100 mg tablet hydralazine 100 mg tablet Take 1 tablet 3 times a day by oral route for 90 days. labetalol (Normodyne) 100 mg tablet Take 100 mg by mouth twice a day. lansoprazole (Prevacid) [address] capsule lansoprazole 30 mg capsule,delayed release Take 1 capsule every day by oral route for 90 days. Lantus Solostar U-100 Insulin 100 unit/mL (3 mL) pen INJECT TEN UNITS SUBCUTANEOUSLY TWICE DAILY lisinopril 20 mg tablet Take 20 mg by mouth in the morning. metFORMIN (Glucophage) 1,000 mg tablet metformin 1,000 mg tablet Take 1 tablet twice a day by oral route for 90 days. multivitamin capsule Take 1 capsule by mouth in the morning. pioglitazone (Actos) 30 mg tablet Take 30 mg by mouth in the morning. potassium chloride CR (Klor-Con) 10 mEq ER tablet Take 10 mEq by mouth in the morning and at bedtime. pregabalin (Lyrica) 75 mg capsule Take 75 mg by mouth 3 times a day. [DISCONTINUED] fosinopril (Monopril) 40 mg tablet Take 40 mg by mouth 2 times daily. [DISCONTINUED] aspirin 325 mg EC tablet Take 325 mg by mouth in the morning. [DISCONTINUED] cholecalciferol, vitamin D3, 50 mcg (2,000 unit) capsule Take 2,000 Units by mouth in the morning. [DISCONTINUED] clobetasol (Temovate) 0.05 % ointment APPLY TO THE AFFECTED AREA(S) ON LOWER LEGS TWICE DAILY TUESDAY - TUESDAY, OFF WEEKENDS, THEN USE FOR FLARES [DISCONTINUED] dapagliflozin (Farxiga) 5 mg Take 5 mg by mouth in the morning. [DISCONTINUED] diclofenac (Voltaren) 75 mg EC tablet Take 75 mg by mouth in the morning and 75 mg in the evening. [DISCONTINUED] fenofibrate (Tricor) 145 mg tablet in the morning. [DISCONTINUED] GLIPIZIDE ORAL Take 3 tablets by mouth in the morning. [DISCONTINUED] Jardiance 10 mg Take 10 mg by mouth in the morning. [DISCONTINUED] ketoconazole (NIZOral) 2 % cream APPLY a small amount TO THE AFFECTED AREA(S) TWICE DAILY DIRECTED, continue to use for 7 days after rash is gone [DISCONTINUED] labetalol (Normodyne) 300 mg tablet Take 300 mg by mouth in the morning and 300 mg at noon and 300 mg in the evening. [DISCONTINUED] latanoprost (Xalatan) 0.005 % ophthalmic solution 1 drop. [DISCONTINUED] mometasone (Elocon) 0.1 % cream Apply 1 application topically twice a day. [DISCONTINUED] Myrbetriq 25 mg tablet extended release 24 hr Take 1 tablet by mouth in the morning. [DISCONTINUED] OneTouch Ultra Test strip USE 1 TEST STRIP TO TEST BLOOD SUGAR EVERY MORNING [DISCONTINUED] silver sulfADIAZINE (Silvadene) 1 % cream Apply 1 application topically in the morning. [DISCONTINUED] spironolactone (Aldactone) 25 mg tablet Take 25 mg by mouth in the morning and 25 mg in the evening. [DISCONTINUED] timolol (Timoptic-XR) 0.5 % ophthalmic gel-forming Administer 1 drop into affected eye(s). [DISCONTINUED] timoloL maleate, PF, 0.5 % dropperette 1 drop. No current facility-administered medications on file prior to visit. Allergies Sulfa (sulfonamide antibiotics) Physical Exam VITAL SIGNS: BP 116/62 (BP Location: Left arm, Patient Position: Sitting) Pulse 66 Ht 1.803 m (5' 11 ) Wt (!) 162 kg (357 lb) SpO2 94% BMI 49.79 kg/m??? Constitutional: Well developed, Well n (more content not included)... [facility] Progress note 06-14-2023 Note Date & Type Note Facility 06-14-2023 Note Patient here for 9 m o follow up HFpEF, hHTN, HLD, and PAF. He was admitted to [facility] in March 2023 for fluid overload. Still SOB at rest at times. Denies chest pain and bleeding on Eliquis. Had routine labs w/ lipid last week. [facility] Progress note 09-22-2022 Note Date & Type Note Facility 09-22-2022 Note Cardiology Follow Up Progress Note Chief Complaint: clinic follow up HPI: Jael Buenrostro is a 77 y.o. male with a past medical history including HTN, HLD, Afib, and HFpEF. Patient presents to cardiology clinic for routine follow-up. He states that he has been doing well from a cardiac standpoint. He denies any cardiac complaints or concerns. He denies any chest pain or shortness of breath. He denies any lower extremity, orthopnea, paroxysmal nocturnal dyspnea. No dizziness or lightheadedness. No near-syncope or syncope. He is taking his medication without issues. He denies any bleeding. Cardiology ROS: GENERAL: Denies fever, chills, night sweats, weight loss. HEENT: Denies changes in vision, photophobia, changes in hearing, epistaxis, oral bleeding. CARDIOVASCULAR: Denies chest pain, exertional dyspnea, orthopnea/PND, lower extremity edema, palpitations, lightheadedness/dizziness. RESPIRATORY: Denies SOB, coughing, wheezing GI: Denies abdominal pain, nausea/vomiting, heartburn, melena/hematochezia. RENAL: Denies dysuria, hematuria, flank pain. MSK: Denies muscle weakness/pain, arthralgias/joint pain. NEUROLOGIC: Denies LOC, weakness, numbness, headaches. SKIN: Denies abnormal rashes or bleeding. PSYCH: Denies significant anxiety, depression, sleep disturbances. Medications Current Outpatient Medications on File Prior to Visit Medication Sig Dispense Refill amLODIPine (Norvasc) 10 mg tablet amlodipine 10 mg tablet Take 1 tablet every day by oral route for 90 days. apixaban (Eliquis) 5 mg tablet Eliquis 5 mg tablet Take 1 tablet twice a day by oral route for 30 days. aspirin 81 mg EC tablet in the morning. atorvastatin (Lipitor) 20 mg tablet atorvastatin 20 mg tablet Take 1 tablet every day by oral route for 90 days. cetirizine (ZyrTEC) 10 mg tablet 1 (one) time each day at the same time. DULoxetine (Cymbalta) [address] capsule duloxetine 30 mg capsule,delayed release Take 1 capsule every day by oral route for 90 days. fosinopril (Monopril) 40 mg tablet every 12 (twelve) hours. furosemide (Lasix) 40 mg tablet every 12 (twelve) hours. glipiZIDE (Glucotrol) 10 mg tablet in the morning. hydrALAZINE (Apresoline) 100 mg tablet hydralazine 100 mg tablet Take 1 tablet 3 times a day by oral route for 90 days. labetalol (Normodyne) 100 mg tablet Take 200 mg by mouth in the morning and 200 mg in the evening. lansoprazole (Prevacid) [address] capsule lansoprazole 30 mg capsule,delayed release Take 1 capsule every day by oral route for 90 days. metFORMIN (Glucophage) 1,000 mg tablet metformin 1,000 mg tablet Take 1 tablet twice a day by oral route for 90 days. potassium chloride CR (Klor-Con) 10 mEq ER tablet every 8 (eight) hours. No current facility-administered medications on file prior to visit. Allergies Sulfa (sulfonamide antibiotics) Physical Exam VITAL SIGNS: BP 134/65 (BP Location: Left arm, Patient Position: Sitting) Pulse 75 Ht 1.803 m (5' 11 ) Wt (!) 161 kg (354 lb) SpO2 98% BMI 49.37 kg/m??? Constitutional: Well developed, Well nourished, No acute distress, Non-toxic appearance. HENT: Normocephalic, Atraumatic, Bilateral external ears have normal appearance, Bilateral TMs clear, Oropharynx moist, No oral or pharyngeal exudates, Nose appears normal, nares are patent. Eyes: PERRLA, EOMI, Conjunctiva normal, No discharge. Neck: Normal range of motion, No tenderness, Supple, No stridor. No cervical lymphadenopathy noted. Cardiovascular: Normal heart rate, Normal rhythm, No murmurs, No rubs, No gallops. Thorax & Lungs: Normal breath sounds, No respiratory distress, No wheezing, No chest tenderness to palpation. Abdomen: Bowel sounds normal, Soft, Nontender, No masses, No pulsatile masses. Skin: Warm, Dry, No erythema, No rash. Back: No tenderness, No CVA tenderness. Extremities: Intact distal pulses, No edema, No tenderness, No cyanosis, No clubbing. Musculoskeletal: Good range of motion in all major joints with 5/5 muscle strength in all muscle groups, No tenderness to palpation or major deformities noted. Neurologic: Alert & oriented x 3, Normal motor function in all major muscle groups, Normal sensory function to all major dermatomes, No focal deficits noted. Psychiatric: Affect normal, Judgment normal, Mood normal. Impression: -Hypertension: well controlled -Hyperlipidemia: on Atorvastatin -HFpEF: euvolemic on exam -Afib: on eliquis, labetolol Plan: -Continue amlodipine, labetolol for HTN -Continue labetolol and eliquis for afib -Continue atorvastatin for HLD -Optimize medical management -Aggressive risk factor modification -Plan of care discussed with patient. All questions were answered. Patient voices understanding and is agreeable with current plan. -Patient was educated on red flag symptoms. Strict return precautions were provided. Patient verbalizes understanding -Follow-up in cardiology clinic in 6 months, (more content not included)... [facility] Progress note 09-22-2022 Note Date & Type Note Facility 09-22-2022 Note Patient here for 6 m o follow up CHF, PAF, and hypertension. Doing very well. Denies chest pain, SOB, and bleeding on Eliquis. Had routine labs in May 2022. [facility] Evaluation note 04-14-2022 Note Date & Type Note Facility 04-14-2022 Evaluation note Encounter Date Diagnosis Assessment Notes Apr, Obstructive sleep apnea (ICD-10 - G47.33) Fortunately, the patient is using and benefiting from treatment. Download was reviewed with patient, Current pressure is controlling apnea well, And we will make no changes at this time. A prescription was sent to the [employer] for new supplies throughout the year. He was encouraged to switch out his supplies more regularly as he does seem to be having a large leak, which could be affecting the effectiveness of therapy. He was encouraged to continue to use his machine nightly, throughout the entire night and for naps as this does provide clinical benefit. He will follow-up in the sleep clinic in 1 year or sooner if problems. Apr, Paroxysmal a-fib (ICD-10 - I48.0) The positive effects of controlled NICKI on A. fib were reviewed Apr, BMI 45.0-49.9, adult (ICD-10 - Z68.42) Patient has lost weight since last visit.The positive effects of weight loss on NICKI were reviewed. It was advised to follow diet modification and increase activity as tolerated Apr, Insufficient sleep syndrome (ICD-10 - F51.12) The patient is encouraged to get adequate sleep time. Discussed the risk factors of insufficient sleep, including increased daytime fatigue, higher risk of work and driving accidents, decreased metabolic rate, higher risk of alzheimer's disease, etc. Patient is unable to get consistent sleep throughout the night every night d/t needing to care for his who requires total care. Encouraged patient to use the machine during naps as well to get more restful sleep. Apr, Other Call if any questions or problems. For Sleep Apnea: Patient is advised to work on healthy diet choices and appropriate servings, weight control, regular exercise as directed, and reduce fat intake. Use machine regularly, and keep up with mask changes as needed. Call if problems with mask toleration, increased sleepiness, or poor response to treatment. Take medication as prescribed, keep follow up appointments, get any testing that's been ordered in a timely fashion. Do not smoke. [facility] Other Evaluation note Note Date & Type Note Facility Evaluation note No assessment information availa [facility] Work Phone: History general Narrative - Reported Note Date & Type Note Facility History general Narrative - Reported Type Medical History Obstructive sleep apnea Medical History Paroxysmal a-fib Medical History Diabetes Medical History Hyperlipedimia Medical History HTN Medical History Glaucoma Medical History right arm sarcoma Medical History Acid reflux Medical History Hiatal Hernia Surgical History Cardioversion Surgical History pilonidal cyst Surgical History tonsillectomy Surgical History arthroscopic knee surgery Surgical History knee surgery 1986 Surgical History hammer toe repair 1994 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 Surgical History heel spur excision 1999 Surgical History TURP Surgical History knee replacement 2003 Surgical History umbilical hernia Surgical History TURP 2003 Surgical History repair ruptured achilles tendon left 2007 Surgical History umbilical hernia repair 2009 Surgical History cardioversion 2017 Hospitalization History see above Hospitalization History cellulitis [place] Other Summary Purpose Family History No Family History Records FoundNo Family History Records FoundNo Family History Records FoundNo Family History Records FoundNo Family History Records FoundNo Family History Records Found Advance Directives Advance Directive Response Recorded Date/ Time Advance Directives No February 03 8 11:58am Additional Source Comments (unrecognized sect ion and content) No Status Records FoundNo Status Records FoundNo Status Records FoundNo Status Records FoundNo Status Records FoundNo Status Records Found INFORMATION SOURCE (unrecogn ized section and content) DATE CREATED AUTHOR 03/30/2018 [facility] DATE CREATED AUTHOR AUTHOR'S ORGANIZ ATION 10/02/2021 [facility] DATE CREATED AUTHOR AUTHOR'S ORGANIZ ATION 01/10/2023 [facility] DATE CREATED AUTHOR AUTHOR'S ORGANIZ ATION 04/17/2023 [facility] DATE CREATED AUTHOR AUTHOR'S ORGANIZ ATION 08/27/[address] [facility] DATE CREATED AUTHOR AUTHOR'S ORGANIZ ATION 09/27/2023 [facility] REASON FOR VISIT (unrecogniz ed section and content) AnnualAnnual Care Teams (unrecognized sec tion and content) Team Status: Active Member Role Status Dates Geovanna Bundy MD Primary Care Provider Active Team Status: Inactive Member Role Status Dates Geovanna Bundy MD Primary Care Provider Active Farnaz Ruggiero MD Attending Provider Active Goals (unrecognized section and content) Goals may be documented in a n alternate section FOR RECORDS PERTAINING TO PATIENTS WHO ARE OR HAVE BEEN ENROLLED IN A CHEMICAL DEPENDENCY/SUBSTANCEABUSE PROGRAM, SOME INFORMATION MAY BE OMITTED. This clinical summary was aggregated from multiple sources. Caution should be exercised in using it in the provision of clinical care. This summary normalizes information from multiple sources, and as a consequence, information in this document may materially change the coding, format and clinical context of patient data. In addition, data may be omitted in some cases. CLINICAL DECISIONS SHOULD BE BASED ON THE PRIMARY CLINICAL RECORDS. [facility] provides no warranty or guarantee of the accuracy or completeness of information in this document.
[2023-09-29 11:49] LABS: Anion Gap 14.1; BUN Creatinine Ratio 19.1; Calcium 9.1 mg/dL (8.5-10.1); Carbon Dioxide 27.7 mmol/L (21.0-32.0); Chloride 103 mmol/L (98-107); Estimated GFR (African America >60 (>=60); Estimated GFR (Non-African Ame 51 (>=60); Glucose 333 mg/dL (74-106); Potassium 4.8 mmol/L (3.5-5.1); Sodium 140 mmol/L (136-145)
== END 2023-09-29 10:52 | disposition home or self-care (01) ==
PROVIDERS: PCP Family Medicine; Visit Provider Nurse Practitioner Family
DX: I50.32 Chronic diastolic (congestive) heart failure (principal)
CPT/HCPCS: 36415; 80048

== ENCOUNTER 2024-05-15 09:53 | Outpatient (OUT) | payer MEDICARE, SELFPAY ==
--- NOTE | 2024-05-15 10:00 | CA_ITS ---
Patient Name: LUCIANA BUENROSTRO MR#: [id number] : 1945 Exam Date: 05/15/2024 Ordering Doctor: PATY ACHARYA M.D. ECHOCARDIOGRAM REPORT PROCEDURE: CA ECHO DOPPLER COMPLETE INDICATIONS: Dyspnea on exertion, atrial fibrillation, hypertension, diabetes COMPARISON: None. DESCRIPTION: COMPLETE ECHOCARDIOGRAM Real-time transthoracic echocardiography with 2D, M-mode, spectral and color flow Doppler performed. QUALITY: Technical quality was good. LEFT VENTRICLE: Normal chamber size. Normal left ventricular wall thickness. LV EF: Normal left ventricular ejection fraction, (>55%). DIASTOLIC: Not adequately assessed due to heart rhythm. ATRIAL SEPTUM: Visually appears intact. LEFT ATRIUM: Mild dilatation. RIGHT ATRIUM: Moderate dilatation. RIGHT VENTRICLE: Normal size. Normal right ventricular systolic function. TRICUSPID VALVE: Normal mobility and thickness. No stenosis with trivial regurgitation. Pulmonary pressure can not be estimated due to inadequate TR. MITRAL VALVE: Normal mobility and thickness. No evidence of mitral valve stenosis. There is no mitral annular calcification. No mitral regurgitation. AORTIC VALVE: Normal trileaflet appearance. Mildly calcified aortic valve. Mildly diminished mobility. No evidence of aortic valve stenosis. DVI 0.6. No aortic regurgitation. AORTIC ROOT: Normal diameter and appearance. Ascending aorta is normal in size PULMONIC VALVE: Not well visualized. PERICARDIUM: No evidence of pericardial effusion. IVC: No Collapes with inspirations. IVC is normal in dilated. RAP 15 mmHg. PLEURA: CONCLUSION: Normal chamber size. Normal left ventricular wall thickness. Normal left ventricular ejection fraction, (>55%). Jessie aortic valve sclerosis without stenosis Biatrial enlargement No valvular abnormalities Dilated IVC without respiratory collapse C/W RAP 15 mmHg Adult Echocardiography Procedure Report Left Ventricle LVEDD (3.7 - 5.6 cm): 4.45 cm LVESD (2.2 - 4.0 cm): 3.83 cm LVIVS thickness (0.6 - 1.2 cm): 1.10 cm LVPW thickness (0.5 - 1.0 cm): 1.14 cm LVOT Max Gradient: 2.65 mm[Hg], 1.97 mm[Hg] LVOT Area (cm2): 0.76 m/s Peak Velocity (LVOT): 0.81 m/s, 0.70 m/s Mean Velocity (LVOT): 0.51 m/s LVOT Diameter 2.20 cm Left Atrium LA Volume Index (2D A2C): 41.78 ml/m2 Left Atrium Systolic Dimension: 5.02 cm Mitral Valve Mitral Valve E-Wave Peak Velocity: 1.26 m/s Right Ventricle Aorta AO Root Diam: 3.48 cm Ascending Ao Diam: 3.48 cm Aortic Valve AoV Area (Peak Omar): 2.43 cm2, 3.05 cm2, 1.96 cm2 AoV Area (VTI): 2.32 cm2, 3.07 cm2, 1.82 cm2 Peak Velocity(Antegrade Flow): 1.01 m/s, 1.36 m/s Peak Gradient(Antegrade Flow): 4.10 mm[Hg], 7.35 mm[Hg] Mean Velocity(Antegrade Flow): 0.65 m/s, 0.91 m/s Mean Gradient(Antegrade Flow): 1.96 mm[Hg], 3.96 mm[Hg] Velocity Time Integral: 19.68 cm, 29.25 cm Tricuspid Valve Peak Velocity (Regurgitant Flow): 3.06 m/s Pulmonic Valve Peak Velocity: 1.14 m/s Peak Gradient: 6.18 mm[Hg], 4.82 mm[Hg], 4.61 mm[Hg] Right Atrium Right Atrium Systolic Pressure: 107.27 ml, 107.27 ml Dictated by: Osmani Martinez MD on 05/16/2024 at 14:04 Approved by: Osmani Martinez MD on 05/16/2024 at 14:18
== END 2024-05-15 09:54 | disposition home or self-care (01) ==
LOC: CARD 09:53
PROVIDERS: PCP Family Medicine; Visit Provider Internal Medicine Cardiovascular Disease
DX: R06.09 Other forms of dyspnea (principal)
CPT/HCPCS: 93306

== ENCOUNTER 2024-07-10 08:49 | Outpatient (OUT) | payer MEDICARE, SELFPAY ==
--- OUTSIDE RECORDS SUMMARY | 2024-07-10 09:07 | XMS_ITS | CCD ---
Author Organization [facility] Care Team Providers Care Medical Claims Examiner Name Role Phone MAGALY SANTILLAN Attending Unavailable MAGALY SANTILLAN Admitting Unavailable HOY, GEOVANNA Referring Unavailable HOY, GEOVANNA Primary Care Unavailable Hopper, Yulissa Unavailable HOY, GEOVANNA Consulting Unavailable HOY, GEOVANNA [...] Care Provider MD Farnaz Ruggiero Attending Provider Farnaz Ruggiero Admitting Unavailable Farnaz Ruggiero Attending Unavailable Niharika, Geovanna M Primary Care Unavailable Hopper, Yulissa Admitting Unavailable Hopper, Yulissa Attending Unavailable Niharika, Geovanna M Primary Care Unavailable JOHANN LOW Attending Unavailable JOHANN LOW Attending Unavailable FARNAZ RUGGIERO Attending Unavailable FARNAZ RUGGIERO Attending Unavailable Allergies Allergy Classification Reported Allergen(s) Allergy Type Date of Onset Reaction(s) Facility (3 sources) Sulfonamides (Antibiotic); Translations: [SULFA (SULFONAMIDE ANTIBIOTICS)] Drug allergy (disorder) 3 [facility] Repository (3 sources) Sulfanilamide; Translations: [sulfanilamide] Drug Allergy 4 Unknown [facility] Repository (2 sources) Sulfur Drug Allergy rash [email or web address] Other (1 source) Sulfur Drug Allergy 4 [facility] Repository Medications Current Medications Medication Drug Class(es) Dates [...] Resolved: 04-14-2022 Chronic Congestive heart failure; nonhypertensive (3 sources) Acute combined systolic (congestive) and diastolic (congestive) heart failure; Translations: [Chronic diastolic (congestive) heart failure] Onset: 06-11-2022 Chronic Diabetes mellitus without complication (2 sources) Type 2 diabetes mellitus without complication; Translations: [Diabetes mellitus without mention of complication, type II or unspecified type, not stated as uncontrolled] Onset: 12-22-2012 Chronic Disorders of lipid metabolism (6 sources) Hyperlipidemia, unspecified; Translations: [Mixed hyperlipidemia] Onset: 06-09-2022 Chronic Essential hypertension (2 sources) Essential hypertension; Translations: [Unspecified essential hypertension] [...] sleep apnea (adult) (pediatric)] Onset: 09-26-2023 Chronic Spondylosis; intervertebral disc disorders; other back [...] Test Name Value Interpretation Reference Range Facility Office Visiton 04-27-2024 Follow-up visit [id number] Flor Buenrostro 1945 M Date Provider Department Center 04/27/2024 Joshua8-FARNAZ RUGGIERO [facility] Family History Problem Relation Age of Onset Heart failure Mother Stroke Mother Cancer Father Heart attack Paternal Grandfather Family Status - Relation Status Age at Mother Father Paternal Grandfather Level of Service:14284 [place] OFFICE/OUTPATIENT ESTABLISHED LOW MDM 20 MIN Reason for Visit and Comments: Follow-up [595998] - 6 month follow up Normal [facility] 36on 11-23-2023 36 Patient informed and he verbalized understanding. Normal [facility] 36 Will keep his meds t he same at this time. Please have him notify us if it is consistently running >130 for the top number. Thanks! [facility] 36on 11-21-2023 36 Patient called this morning and said his home health nurse checked his BP this morning and it was 116/76. VASILE [facility] Office Visiton 10-19-2023 Follow-up visit [id number] Flor Buenrostromilly Brittanie 1945 M [facility] Provider Department Center 10/19/2023 JOHANN PARIS Family History Problem Relation Age of Onset Heart failure Mother Stroke Mother Cancer Father Heart attack Paternal Grandfather Family Status - Relation Status Age at Mother Father Paternal Grandfather Level of Service:83708 [place] OFFICE/OUTPATIENT ESTABLISHED LOW MDM 20 MIN Reason for Visit and Comments: Hypertension [969090] Congestive Heart Failure [127] [facility] Telephoneon 10-19-2023 Telephone [id number] Flor Buenrostromilly Gu 1945 [facility] Provider Department [place] 10/19/2023 VARUN CHILD Family History Problem Relation Age of Onset Heart failure Mother Stroke Mother Cancer Father Heart attack Paternal Grandfather Family Status - Relation Status Age at Mother Father Paternal Grandfather [facility] 36on 10-07-2023 36 Please let him know his recent labs showed his kidney function is stable and his potassium level is at 4.8. Can continue lisinopril. Follow-up as planned. Thanks [facility] Telephoneon 10-07-2023 Telephone [id number] Flor Buenrostro 1945 [facility] Provider Department Center 10/07/2023 JOHANN PARIS Family History Problem Relation Age of Onset Heart failure Mother Stroke Mother Cancer Father Heart attack Paternal Grandfather Family Status - Relation Status Age at Mother Father Paternal Grandfather [facility] 36on 08-25-2023 36 Please let him know his labs show that his potassium level has returned back to normal. His kidney function is stable. Please confirm if he is taking lisinopril or not. If not, we can have him try to reduce the dose to 10mg daily (half tablet of his previous dose) and get a follow-up BMP in 1 month. Thanks [facility] Telephoneon 08-25-2023 Telephone [id number] Flor Buenrostro andrea E 1945 M Date Provider Department Center 08/25/[address] Family History Problem Relation Age of Onset Heart failure Mother Stroke Mother Cancer Father Heart attack Paternal Grandfather Family Status - Relation Status Age at Mother Father Paternal Grandfather [facility] Office Visiton 07-20-2023 Follow-up visit [id number] Flor Buenrostro andrea E 1945 M Date Provider Department Center 07/20/2023 JOHANN PARIS Family History Problem Relation Age of Onset Heart failure Mother Stroke Mother Cancer Father Heart attack Paternal Grandfather Family Status - Relation Status Age at Mother Father Paternal Grandfather Level of Service:97817 [place] OFFICE/OUTPATIENT ESTABLISHED MOD MDM 30-39 MIN Reason for Visit and Comments: Congestive Heart Failure [127] Hypertension [122060] Normal [facility] Basic Metabolic Panelon 06-12 GFR/1.73 sq M.predicted MDRD (S/P/Bld) [Vol rate/Area] mL/min/{1.73_m2} [facility] Comment on above: Performed By: #### B MP #### [facility] [address] [place] [address] [place] Calcium [Mass/volume] in Ser um or PlasmaOrdered By: Farnaz Ruggiero on 06-23-2023 Calcium [Mass/Vol] 9.4 mg/dL Normal 8.6-10.3 [facility] Comment on above: Result Comment: PERF ORMED BY: [facility] [address] [place] [address] PATHOLOGIST SECRETARY RECEPTIONIST PATITO MIDDLETON M.D. Performed By: #### B MP #### [facility] [address] [place] [id number] [facility] Carbon dioxide, total [Moles /volume] in Serum or PlasmaOrdered By: Farnaz Ruggiero on 06-23-2023 CO2 [Moles/Vol] 27.8 mmol/L Normal 21.0-31.0 [facility] Comment on above: Performed By: #### B MP #### [facility] [address] Chloride [Moles/volume] in S mikey or PlasmaOrdered By: Farnaz Ruggiero on 06-23-2023 Chloride [Moles/Vol] 105 mmol/L Normal 98-107 [facility] Comment on above: Performed By: #### B MP #### [facility] [address] Creatinine [Mass/volume] in Serum or PlasmaOrdered By: Farnaz Ruggiero on 06-23-2023 Creatinine [Mass/Vol] 1.22 mg/dL Normal 0.70-1.30 [facility] Comment on above: Performed By: #### B MP #### [facility] [address] [place] [address] [place] Glucose [Mass/volume] in Ser um or PlasmaOrdered By: Farnaz Ruggiero on 06-23-2023 Glucose [Mass/Vol] 169 mg/dL High 70-100 [facility] Comment on above: ADA recommended refe rence rangeRandom Glucose Reference Range is dependent on time and content of last meal. Glucose of more than 200 mg/dL in a nonstressed, ambulatory subject supports the diagnosis of Diabetes Mellitus. Result Comment: [place] om Glucose Reference Range is dependent on time and content of last meal. Glucose of more than 200 mg/dL in a nonstressed, ambulatory subject supports the diagnosis of Diabetes Mellitus. ADA recommended reference range Performed By: #### B MP #### [facility] [address] No Panel InformationOrdered By: Farnaz Ruggiero on 06-23-2023 Estimated GFR (CKD-EPI) > 60.0 mL/Min [facility] Creatinine Clearance (Chem N/A [facility] Potassium [Moles/volume] in Serum or PlasmaOrdered By: Farnaz Ruggiero on 06-23-2023 Potassium [Moles/Vol] 4.6 mmol/L Normal 3.5-5.1 [facility] Comment on above: Performed By: #### B MP #### [address] Serum or plasma anion gap de terminationOrdered By: Farnaz Ruggiero on 06-23-2023 Anion gap [Moles/Vol] 11.8 mmol/L Normal 6.0-15.0 [facility] Comment on above: Performed By: #### B MP #### [address] Sodium [Moles/volume] in Ser um or PlasmaOrdered By: Farnaz Ruggiero on 06-23-2023 Sodium [Moles/Vol] 140 mmol/L Normal 136-145 [facility] Comment on above: Performed By: #### B MP #### [facility] [address] [place] [address] Urea nitrogen [Mass/volume] in Serum or PlasmaOrdered By: Farnaz Ruggiero on 06-23-2023 Urea nitrogen [Mass/Vol] 23 mg/dL Normal 7-25 [facility] Comment on above: Performed By: #### B MP #### [address] Office Visiton 06-14-2023 Follow-up visit [id number] Flor Buenrostro 1945 M Date Provider Department [facility] Family History Problem Relation Age of Onset Heart failure Mother Stroke Mother Cancer Father Heart attack Paternal Grandfather Family Status - Relation Status Age at Mother Father Paternal Grandfather Level of Service:11640 [place] OFFICE/OUTPATIENT ESTABLISHED LOW MDM 20-29 MIN Normal [facility] Coding Summaryon 04-17-2023 Coding Summary HTMLBase 64 RouyybdcSGq6iSq+PGhlYWQ+PE1F BWXpU45qyKTkgQ5hR6DXTIaWEmiq ITMBIBfOHdEwldXxAJ0txFChEZRj IC8+DL4vPOWyTyxhtBGfu7W9hOX9 Q04hlq4bUElezNF2XKIzUsOjnrcs f5nanBw3UThoKtpkKyMt KTNmuY72LRB5gE45Ct39tZUhiTJu c4wlgKi2EtKwRGCyPCX5iDnhLFmx r0JnWEDwC55ckQSeb3X5 IBZteBmyaIGkMlNssVC3zT9bNEbm aqjvv4ygnvckDgb0gi95jZZwm5W4 aGI3E0VprtY7PUZxnINt YbszlHKBeS1jlmqbc5mkrwbxIlEr QALoNTh0LQl4JMOrxOrcGtEwUT64 LGU5HKAvgsJrB9VvTVIh qCzdWzI2x0R4Zx2XA2LFKyyxO9VN TUFSWTwvdGQ+GI78cp72K7BqJknq Uau3ZHOvHUH3yKI7bT1o CIOtROqnr4S7hKF8U2NdjcBcgv6v h2nfAROuGQloZ29spUBwl9T0GKQp bTG1ERVscPqqQcLczY55 Oyc+EMKufBymj9OmJkojg6fzl6yo yYn1HjxmVSOltfXhgSqgZUO8l6Uh Ju3fYWIavFK2fDU5vZ8z ShReAmS1QCanX490ZwUgfSOpKjoo Z19vH8NnwOW+AVVcIox1FRVpoBrg TT5eA2NaILSdnobzoMIe lXpwCK3gTXNxmhdwQDWrrX9gAIVs J5a1YoSwUgT8XZwaE3ZnMHSgyvxh Yt92bE8tHfIrNpF7YOoc G1XtprA6IKUyyHMqZBmeWDE3F49a z5W9GGUoTXKbFDW8bRS9zO0dqQzu bjogbGVmdDsgdmVydGlj YGmwLMqdY116XQSvxKzoKuJeROyq ZyBEYXRlOiAgMDgvMDYvMjAyMzwv dGQ+CPPoVJZ9gJqfLQIx yCJoVBkbTn1djLyzhAatEY3gVYBs uvceSXOlrR2zXRXtnPNqjIixZV4z DIXiwuzml393ClPySYS3 YRNdvTPuT2KhaG3zKhEsTRYnGZBg K3KelDLdMQwfT305MTovTnL4ZCNo wfQyD5GjMNRciWyhZqK5 p7G7Kw3Ff0YeujziR0JlxXIhOwVs PsbfKUb1B1ZxNyebvKJ+MA91JEMu NJ72RCw5DCY9lPpmROhd YGJzF4OuvG9nLvMnMQRiHFLhMuq+ PHRhYmxlIHdpZHRoPScxMDAlJyBz dKnfPS2hTx5aITQfDNJs fIjtnWYnQtQvs6trVNAoXLmrXY7r tKgyZ0TqpTD0HFElg6e1Pz42G91p Q6WoeOQ+XTCssVY1dVR3 bY0eIbIvTeX6JMbwG615RiXqdDEu Mrkcm6edt7esqRl8LyR3DQRocuNg nTojDNF3p4OiAb31K41u MWlvONRnRYFnKYVzIYChhRqduk1c jH2uHj1+PJAniAF9vBG8cQ4yBuCe JaN1BHzjE201RbXujFMq Febmp0mzl4juiQx2FxDxMTIzikNi pCuzQCQ8v5UeJn77H5ZtcScer1Eq Iuu0nc98tWAwl7F5aSI5 V9BePVClhpjlbGTsdAmpSW9vXQRw jevpKINcgD2xKJGuD9u7UlUzYgO3 LBkgC1NpdqN6YGBnlMYo RADdfUJIiJ5mtsoib5xfiajwJqRq LXDyNXd2UEw1MSKfuKsfQyHnTTN8 ScH7NVP6uOJgwY3fhEpp dqzbmI5dQuz+XCI7iJAvcUEGEJ0u OjwvdGQ+DBCsOBY4qKvaCEegHJFt jK7fVYAfH4a2FwXsNaY1 UTqdZ7DiboW5HTMqvJDyRTJkzESF mS3kndtzj9sqxayaAyYtPKNlAOy2 YEy1JNFphPfdAuEpQXX4 TsM6IVM8gOQzxJ5kdKyrisfvpS8v Oyc+HgqrxWknSPS0RQj0N1VuXgh3 RJRpoEqzNP7rbKIpISbw St6rrDyixBhaTI8qLOQphscwg241 UyQpn1zpCFUacHYgCYhfZNE0H49q q4B9DDGhLADrIAR5pDP3 jT5kuYsadwpbuJZjwRgtytZmqBdr UHxxBNyoT646AQQxwIysHfWyQLm5 U5QpIqh7VGQhmPizZS6k aPHzKRiiYa0seWwmvYajJZ2kJUXu creuc843JfXdq8fzHQKrfNXgEBkb LKU4H13du4C8QDYlYKGz JXG5pBU1nO0ieVeabanfpDRbmWuk wsFmwLklSFsgSBugC050BVEeiNha PwJspYq4U8KvMpr2LWXl oPtvQP3yvFTmBVedKv8xyWplhPef MN6nSWImlmrsu135SfWle2jzKKOz xQQuFUdlUSJ6Y03bl3F6 MJMtAJWyAUM4eVF4aC4paVgwmaln uIMfsPpeznPmtVbuYSjqKRgsZ018 IHRvcDsnPlBhdGllbnQg VWeqKWx2B0LqArfzuGO+PR94VKBl FP65hIMriFNwq6inmBq1DsPaVOOj HXF6fVwhKNxzc5JqKFMs H71yvPDcm1B7DESftNcurNPfAiTi bKE6tW7wLSxidsoao3dpldqbWkfw o1huiv47eL98L59zMPfy ONHqHSQcPULmTLXraAkoqb4qtU9z Ii8+FWSbnRX3hNO6uY0uISCdTnY4 ZAlgR116FaXmnFKmTejo k2dzr8tzeJa5GpG7TQXvfmQxjBfg DWB0e1YxDv16T53rXLhuRYEbHFFi UUVoJRAqaFqkna2epN4f Ii8+MGSfwDH5hHG0lQ0jBtZkKrM9 RZwqB059AhGktRKaNpgsP68hQ2Da dXA+MTIpBhf0SDFxcReu XQ4mcJErCYbwMz3hOAE3OhDmFjWm RBtjE3GnSABeexjcjtehsRB8AQOo SUFxlC96Ll4wgHbzGHBp xGCKbT8dqhjfl1lgflaxJgBhFVBl YRj9SNq2HTAwzVdrQbIkKOV0LcT8 PPF1bMYdjH8etTqswzas sW4pK1TzNSTscdfkMr87aA8gGcLo ScM1YSvhYiu+BeIHVi9WE0wJUKNZ H34LEOO2D4LhJrx4FMPg uXhwON9qlHVmRXsnXz9yiXbzhZpy PX3mVIXoixisBXEbqM1kABNeqYZh wSyoME2tIYButeuzd736 HrJyUUO4YTIxmZPtP4OgwE8gWhBo QRZgIWZlM7CqeRUhXLmwP044OJwk KzI9TQVlvlGbW9RfOPUr pQvoNsS1x2K1Qp7yZZ7yPv5uEPR6 GZ91WL81uDWgo1L0cMQ0J7VsYXBu yrlugjdxjGP4KZMjVZWs oF65uBAiVYxkTl8aa6Q5m553FBFl EMYdfN76Xk7iiObbCBXibXZUiA6v bfsej0wigztdQrYmSZFf GJl5TUk1TQWwoVktThPsDLN0SdR0 JJA2zWXtbV0bcPsonekfoF6iAia+ GnpwCKLtmxH1Y7XsOng3 WJGegDfaYN2vpQDsEEywDp4eqYnj zNfhRP8kVBTnkmurYRGcfH7lUIUi fWWtgHyyOY2uYPLswcwz y559AnVgKIR5ARXvnRWuW2LqaF2d LfByMBKiXBQzK6SixEAmUOiyL835 YPesIjV4HLSlqyJuD3Fe MCTrdUiaTwD4h2S6Bw1YPUcSVI68 MF62iYFbi4H7mNE2T5YmEACpzxsa vhlpmLD1RZJxVXVeqP34 rDJdJSuuWc6bx3B8n028GRKpGQNl xO42Ng3phIuiTCSfiEFXuL2comwh l6ihxlzxKhVpDRSuEGb5 NMl2CXDyvSelDeNdYVA3ZtR8ARN2 gIMmjG1uqGdfxsiarH4wLog+RW1l vccueoC7VY51BB82V9Fn PjwvdGFibGU+PHRhYmxlIHdpZHRo PCuuDHQyYqRqvFxwNI5tYa1gNOMq WVAugGnovHVpRrKhr3lu WYYuLQyhEH1uiCxyN4IpfOO7DCEd n4z5Hm15I75pE2JdiXK+PGNvbCB3 iKA1aJ2oOeHrTtU5EJdt G089EfPikUSpPmwwk8waa3rkwZc6 VeWsSMFtnpPhaVjrAXE3v6GmNv51 F24bZIodDJMxTKCdCBBu GEAkjUiwtu4kkO2qSa0+PGNvbCB3 aVM1gZ8nBsJzYfM2MJywH922ZlWy uHOxVakmZ82lQ0LgaZD+ HWKpGcn1TCIviHzdQC5btHVlGUcx Le2iFTO8JrMoWyOhDMroW0KlLQFu evnrlgkzlPS5FHKaRKWn wZ18Mg3ruTxpOi6oBJYiDAM6QQSw bKVxU8ItlQ6yWcJzKNZhVFNxO6Co qJCwOGzxR746XBkfWoS3 FJZhtoLgM5TkCRAokXqnGyZ7c9I3 Ec9UlPpjqIOhCA9rOrBpPFd8N3Jb Dit3TQMrkJiwZT4edZFd CLttZw6jzByvnYgwEG2rCJQwnnpa n183GpTva7wlUNCqwSJgZSmyTJV3 R06mg2H4MWLkZPBuTGX4 vYA5eC4apAjfivzooOKspQianfSg dQlgWRqjYUspJ231MFLbdYgmYuVJ Phg5I1KgJkg8HCJtvHqp OT0saRPeGDiuOc1dtGvraNinAJ8h SCXifruat787GfTct4jeGLUidSIh CRwyHEV0A89uy0G2DZAl WGFcUYG3nAC6aT8pySwpymfkkXXf dXnhpiLvwOcnEYmfTOmmB025OOIu qMkePk0IAwg1N6IgUnm2 VGVpoLyyOP3kmARjWJzhRd7dwKzd hWoiDU9qDAOqlpyfg603KcKyo1cx HGPjiGBmJFfzUWA4H82e g9C8AYTfTYXxKMU9yIP4tB8jgSqz bjogbGVmdDsgdmVydGljYWwtYWxp G708QPIoaTdeSrPkwBEf OjwvdGQ+TV95ey74Z8XdClqbOza7 DZElVGH9zOE5pD7fOUBjUEixn0A4 dVB4O5YalmAbxq2ar1ox YXB (more content not included)... Normal [facility] Consent Formson 04-12-2023 Consent Forms [id number] Normal [facility] .Auto Diff 1on 04-11-2023 Auto [place] % 8 % Normal -12 [facility] Comment on above: Performed By: #### 5 [id number] #### [facility] (DEFAULT[facility] [address] [place] [address] 62613 Baso Abs# 0.0 x10 Normal 0.0-0.2 [facility] Comment on above: Performed By: #### 5 [id number] #### [facility] (DEFAULT) [address] [place] [address] 86636 Basophils/100 WBC (Bld) 0.8 % Normal 0.2-2.0 [facility] Comment on above: Performed By: #### 5 [id number] #### [facility] (DEFAULT) [address] [place] [address] 07937 Eos Abs# 0.2 x10 Normal 0.0-0.4 [facility] Comment on above: Performed By: #### 5 [id number] #### [facility] (DEFAULT) [address] [place] [address] 28532 Eosinophils/100 WBC (Bld) 3.3 % Normal 0.9-4.0 [facility] Comment on above: Performed By: #### 5 [id number] #### [facility] (DEFAULT) [address] [place] [address] 24048 Lymph Abs# 0.6 x10 Low 1.3-2.9 [facility] Comment on above: Performed By: #### 5 [id number] #### [facility] (DEFAULT) [address] [place] [address] 12210 Lymphocytes/100 WBC (Bld) 11 % Low 14-48 [facility] Comment on above: Performed By: #### 5 [id number] #### [facility] (DEFAULT) [address] [place] [address] 56534 [place] Abs# 0.5 x10 Normal 0.0-0.8 [facility] Comment on above: Performed By: #### 5 [id number] #### [facility] (DEFAULT) [address] [place] [address] 93111 Neut Abs# 4.5 x10 Normal 1.5-9.2 [facility] Comment on above: Performed By: #### 5 [id number] #### [facility] (DEFAULT) [address] [place] [address] 86406 Neutrophils/100 WBC (Bld) 77 % Normal 44-88 [facility] Comment on above: Performed By: #### 5 [id number] #### [facility] (DEFAULT) [address] [place] [address] 18970 BNP.on 04-11-2023 Natriuretic peptide B (Bld) [Mass/Vol] 279.0 pg/mL High 0.0-100.0 [facility] Comment on above: Result Comment: BNP results greater than 100 pg/mL are considered abnormal and suggestive of patients with CHF. Higher BNP concentrations measured in the first 72 hours after an acute coronary syndorme are associated with an increased risk of , myocardial infarction, and CHF. Performed By: #### 5 [id number] #### [facility] (DEFAULT) [address] [place] [address] 59442 CBC w/ Auto Diffon 3 Erythrocyte distribution width (RBC) [Ratio] 14.6 % Normal 11.5-15.0 [facility] Comment on above: Performed By: #### 5 [id number] #### [facility] (DEFAULT) [address] [place] [address] 84471 Hematocrit (Bld) [Volume fraction] 27.9 % Low 34.8-51.9 [facility] Comment on above: Performed By: #### 5 [id number] #### [facility] (DEFAULT) [address] [place] [address] 82026 Hemoglobin (Bld) [Mass/Vol] 9.2 g/dL Low 11.8-17.7 [facility] Comment on above: Performed By: #### 5 [id number] #### [facility] (DEFAULT) [address] [place] [address] Man Diff? Auto Invalid Interpretation Code [facility] Comment on above: Performed By: #### 5 [id number] #### [facility] (DEFAULT) [address] [place] [address] 09131 MCH (RBC) [Entitic mass] 31 pg Normal 24-34 [facility] Comment on above: Performed By: #### 5 [id number] #### [facility] (DEFAULT) [address] [place] [address] MCHC (RBC) [Mass/Vol] 33 g/dL Normal 26-37 [facility] Comment on above: Performed By: #### 5 [id number] #### [facility] (DEFAULT) [address] [place] [address] MCV (RBC) [Entitic vol] 95 fL Normal 81-100 [facility] Comment on above: Performed By: #### 5 [id number] #### [facility] (DEFAULT) [address] [place] [address] Platelet 328 x10 Normal 138-427 [facility] Comment on above: Performed By: #### 5 [id number] #### [facility] (DEFAULT) [address] [place] [address] Platelet mean volume (Bld) [Entitic vol] 7.9 fL Normal 6.3-10.2 [facility] Comment on above: Performed By: #### 5 [id number] #### [facility] (DEFAULT) [address] [place] [address] RBC 2.94 x10 Low 3.70-5.30 [facility] Comment on above: Performed By: #### 5 [id number] #### [facility] (DEFAULT) [address] [place] [address] 37123 WBC 5.8 x10 Normal 3.5-10.5 [facility] Comment on above: Performed By: #### 5 [id number] #### [facility] (DEFAULT) [address] [place] [address] 91238 CMP Standardon 04-11-2023 Breakpoint Chem Normal [facility] Comment on above: Performed By: #### 5 [id number] #### [facility] (DEFAULT) [address] [place] [address] 71378 eGFR Non AA 53 mL/min/1.73m2 Invalid Interpretation Code [facility] Comment on above: Performed By: #### 5 [id number] #### [facility] (DEFAULT) [address] [place] [address] 50600 eGFR AA >60 Invalid Interpretation Code [facility] Comment on above: Performed By: #### 5 [id number] #### [facility] (DEFAULT) [address] [place] [address] 42891 Albumin [Mass/Vol] 3.4 g/dL Low 3.5-5.0 [facility] Comment on above: Performed By: #### 5 [id number] #### [facility] (DEFAULT) [address] [place] [address] 53361 Albumin/Globulin [Mass ratio] 0.9 {ratio} Low 1.4-2.6 [facility] Comment on above: Performed By: #### 5 [id number] #### [facility] (DEFAULT) [address] [place] [address] 77682 Alk Phos 56 IU/L Normal 32-91 [facility] Comment on above: Performed By: #### 5 [id number] #### [facility] (DEFAULT) [address] [place] [address] 65526 ALT [Catalytic activity/Vol] 11.0 U/L Low 17.0-63.0 [facility] Comment on above: Performed By: #### 5 [id number] #### [facility] (DEFAULT) [address] [place] [address] 22350 Anion gap [Moles/Vol] 11.3 mmol/L Normal 5.0-19.0 [facility] Comment on above: Performed By: #### 5 [id number] #### [facility] (DEFAULT) [address] [place] [address] 61952 AST [Catalytic activity/Vol] 18 U/L Normal 15-41 [facility] Comment on above: Performed By: #### 5 [id number] #### [facility] (DEFAULT) [address] [place] [address] 73010 Bili Total 0.4 mg/dL Normal 0.3-1.2 [facility] Comment on above: Performed By: #### 5 [id number] #### [facility] (DEFAULT) [address] [place] [address] 29614 Calcium [Mass/Vol] 9.8 mg/dL Normal 8.9-10.3 [facility] Comment on above: Performed By: #### 5 [id number] #### [facility] (DEFAULT) [address] [place] [address] 37963 Chloride [Moles/Vol] 104 mmol/L Normal 101-111 [facility] Comment on above: Performed By: #### 5 [id number] #### [facility] (DEFAULT) [address] [place] [address] 54245 CO2 [Moles/Vol] 28 mmol/L Normal 21-32 [facility] Comment on above: Performed By: #### 5 [id number] #### [facility] (DEFAULT) [address] [place] [address] 33300 Creatinine [Mass/Vol] 1.30 mg/dL Normal 0.90-1.30 [facility] Comment on above: Performed By: #### 5 [id number] #### [facility] (DEFAULT) [address] [place] [address] 78583 Globulin (S) [Mass/Vol] 3.5 g/dL Normal 1.5-4.3 [facility] Comment on above: Performed By: #### 5 [id number] #### [facility] (DEFAULT) [address] [place] [address] 83717 Glucose [Mass/Vol] 96.0 mg/dL Normal 74.0-118.0 [facility] Comment on above: Performed By: #### 5 [id number] #### [facility] (DEFAULT) [address] [place] [address] 70448 Osmolality 283 mOsm/L Invalid Interpretation Code [facility] Comment on above: Performed By: #### 5 [id number] #### [facility] [address] [place] [address] Potassium [Moles/Vol] 5.3 mmol/L High 3.6-5.1 [facility] Comment on above: Performed By: #### 5 [id number] #### [facility] [address] [place] [address]01 Protein [Mass/Vol] 6.9 g/dL Normal 6.5-8.1 [facility] Comment on above: Performed By: #### 5 [id number] #### [facility] [address] [place] [address] 96103 Sodium [Moles/Vol] 138.0 mmol/L Normal 136.0-144 . 0 [facility] Comment on above: Performed By: #### 5 [id number] #### [facility] [address] [place] [address] 23534 Urea nitrogen [Mass/Vol] 34 mg/dL High 8-26 [facility] Comment on above: Performed By: #### 5 [id number] #### [facility] [address] [place] [address] 15272 Urea nitrogen/Creatinine [Mass ratio] 26.1 mg/mg High 4.6-16.2 [facility] Comment on above: Performed By: #### 5 [id number] #### [facility] [address] [place] [address] Chest W/Contraston 2022 CT Chest W/Contrast [...] Yang MD 04/11/23 1:36 pm Technologist: LT Tianna GOLDEN [facility] ED Clinical Summaryon 2022 ED Clinical Summary [facility] - Emergency Department [address] [place], [place] [id number] ED Clinical Summary PERSON INFORMATION Name: LUCIANA BUENROSTRO Age: 77 Years Sex: MALE : 1945 MRN: Acct#: Visit Reason: Edema; DIFF BREATHING/CHF Arrival: 04/11/2023 10:50:23 Discharge: 04/11/2023 15:44:00 LOS: 000 04:54 Check In: 04/11/2023 10:50:23 Checkout:04/11/2023 15:44:00 Address: [address] [place] [address] PCP: EDWARD PERSON PROVIDER INFORMATION Provider Role Assigned Unassigned Alta Anton LOWER IN SUPERVISOR Nurse 04/11/2023 11:02:26 Jacki Harmon CNP ED PA 04/11/2023 11:10:24 Gia Groves LOWER IN SUPERVISOR Nurse 04/11/2023 13:15:10 VITALS INFORMATION Vital Sign [...] Disposition: Discharge/Transfer to Another Hospital Discharge Location: [facility]) PATIENT EDUCATION INFORMATION Instructions: Follow-Up: DIAGNOSIS: 1:Congestive heart failure; 2:Lower extremity cellulitis Patient Understands: Yes - Patient/family/caregiver verbalizes understanding of instructions given Comment: [facility] ED Note-Nursingon 04-11-2023 ED Note-Nursing Patient comes to the ER by EMS with immediate request to be transferred to [facility] upon arrival. Patient states all of his [...] and shortness of breath at this time. [facility] ED Patient Education Noteon 04-11-2023 ED Patient Education Note Education Materials [facility] ED Patient Summaryon 023 ED Patient Summary [facility] - Emergency Department [address] [place] [address] PATIENT DISCHARGE INSTRUCTIONS Patient Information Name: LUCIANA BUENROSTRO Age: 77 Years Date of : 1945 Reason For Visit: Edema; DIFF BREATHING/CHF Arrival Time: 04/11/2023 10:50:23 Primary Care Physician: EDWARD PERSON Attending Physician: Rich Foreman DO Comment: Visit Diagnosis: Diagnoses This Visit Congestive heart failure (I50.9) Edema ([id number]) Lower extremity cellulitis (L03.119) The Pharmacy at [facility] is open Tuesday through Tuesday from [...] alcohol and/or drug addiction problems; contact the [facility] 04/04 Crisis Hotline -Text 4HNCX jz 474129. If you received any narcotics, sedation, or [...] and treatment you received today in the [facility] Emergency Department were for an urgent problem and are not intended as complete care. It is important for you to follow up with a doctor, nurse practitioner, or physician?s entry level administrative assistant for ongoing care. If your symptoms [...] so we can reach you if necessary. [facility] Emergency Department has provided you with a complete list of medications post discharge. Please inform your mutuel teller/provider of your visit and for further instruction [...] ? NO (more content not included)... Normal [facility] Extra Redon 04-11-2023 Tube Collected Yes Invalid Interpretation Code [facility] Comment on above: Performed By: #### 5 [id number] #### [facility] [address] [place] [address] Magnesiumon 04-11-2023 Magnesium [Mass/Vol] 1.54 mg/dL Low 1.80-2.50 [facility] Comment on above: Performed By: #### 5 [id number] #### [facility] [address] [place] [address] 33739 PTon 04-11-2023 INR Coag (PPP) [Relative time] 1.11 {INR} Normal 0.91-1.11 [facility] Comment on above: Performed By: #### 5 [id number] #### [facility] [address] [place] [address] PT 11.8 second(s) Normal 9.7-11.8 [facility] Comment on above: Performed By: #### 5 [id number] #### [facility] [address] [place] [address] TnI HSon 04-11-2023 Troponin I High Sensitivity 5.0 pg/mL Normal <=20.0 [facility] Comment on above: Order Comment: To be done 1 hour after first Troponin HS Performed By: #### 5 [id number] #### [facility] [address] [place] [address] Troponin I High Sensitivity 5.3 pg/mL Normal <=20.0 [facility] Comment on above: Performed By: #### 5 [id number] #### [facility] [address] [place] [address] Transfer Noteon 04-11-2023 Transfer Note 1442- Called [facility] and spoke to Mary RN supervisor graphite. She said to ask the carton machine operator to page the hospitalist 1447- Waited on hold for the hospitalist 1450- Dr. Bundy spoke to Jacki YOUNG 1455- Dr. Bundy accepts 1456- Left RN supervisor graphite a voicemail 1506- Debbie from case management at [facility] called with bed assignment rm 215. Report can be called to [phone] ext [phone]. She requested the patient's medical records be sent to them at fax number [phone] 1508- Called [facility]. Carroll said they would be over after a while 1527- [facility] arrives 1542- [facility] departs Entire chart and CD printed and sent to the patient. Home medications documented in the patient's chart [Electronically Signed on: 04/11/2023 15:49 EDT] Crystal Shoemaker [Verified on: 04/11/2023 15:49 EDT] Crystal Shoemaker [facility] Transfer Note [id number] [facility] XR Chest 1 View Frontalon XR Chest [...] MD 04/11/23 12:14 p Technologist: AUSTYN GOLDEN [facility] US KIDNEYS BLADDERon 04-27-2 023 US KIDNEYS BLADDER EXAMINATION: US KIDN EYS BLADDER HISTORY: Bladder neck obstruction COMPARISON: No [...] authenticated by: JOHN LOPEZ Date: 2023-01-06 12:09 Normal [facility] OCC BLD IMMUNO SCREENon 08-12 OCCULT BLOOD Negative Normal NEGATIVE [facility] Comment on above: Performed By: #### B DIVERSIFIED CROPS II FARMWORKER, TSH, URIC, LIPID, CMP #### [facility] [address] [address] [address] Sallie Brennan CBC AUTO DIFFon 08-21-2022 BASO # 0.0 103/ul Normal 0.0-0.1 [facility] Comment on above: Performed By: #### B DIVERSIFIED CROPS II FARMWORKER, TSH, URIC, LIPID, CMP #### [facility] [address] [place] [address] Dr. Sallie Brennan Basophils/100 WBC (Bld) 0.6 % Normal 0.2-2.0 [facility] Comment on above: Performed By: #### B DIVERSIFIED CROPS II FARMWORKER, TSH, URIC, LIPID, CMP #### [facility] [address] [place] [address] Dr. Sallie Brennan EO # 0.1 103/ul Normal 0.0-0.7 [facility] Comment on above: Performed By: #### B DIVERSIFIED CROPS II FARMWORKER, TSH, URIC, LIPID, CMP #### [facility] [address] [place] [address] Dr. Sallie Brennan Eosinophils/100 WBC (Bld) 1.9 % Normal 0.9-7.0 [facility] Comment on above: Performed By: #### B DIVERSIFIED CROPS II FARMWORKER, TSH, URIC, LIPID, CMP #### [facility] [address] [address] [address] Sallie Brennan Erythrocyte distribution width (RBC) [Ratio] 13.7 % Normal 11.0-15.0 [facility] Comment on above: Performed By: #### B DIVERSIFIED CROPS II FARMWORKER, TSH, URIC, LIPID, CMP #### [facility] [address] [place] [address] Dr. Sallie Brennan Hematocrit (Bld) [Volume fraction] 32.6 % Critically low 42.0-54.0 [facility] Comment on above: Performed By: #### B DIVERSIFIED CROPS II FARMWORKER, TSH, URIC, LIPID, CMP #### [facility] [address] [place] [address] Dr. Sallie Brennan Hemoglobin (Bld) [Mass/Vol] 10.8 g/dL Critically low 14.0-18.0 [facility] Comment on above: Performed By: #### B DIVERSIFIED CROPS II FARMWORKER, TSH, URIC, LIPID, CMP #### [facility] [address] [place] [address] Dr. Sallie Brennan IG # 0.03 10e3/ul Normal 0.00-0.03 [facility] Comment on above: Performed By: #### B DIVERSIFIED CROPS II FARMWORKER, TSH, URIC, LIPID, CMP #### [facility] [address] [place] [address] Dr. Sallie Brennan IG % 0.4 % Normal 0.0-0.5 [facility] Comment on above: Performed By: #### B DIVERSIFIED CROPS II FARMWORKER, TSH, URIC, LIPID, CMP #### [facility] [address] [place] [address] Dr. Sallie Brennan LYMPH # 0.8 103/ul Critically low 1.2-3.8 [facility] Comment on above: Performed By: #### B DIVERSIFIED CROPS II FARMWORKER, TSH, URIC, LIPID, CMP #### [facility] [address] [place] [address] Dr. Sallie Brennan Lymphocytes/100 WBC (Bld) 12.2 % Critically low 20.5-60.0 [facility] Comment on above: Performed By: #### B DIVERSIFIED CROPS II FARMWORKER, TSH, URIC, LIPID, CMP #### [facility] [address] [place] [address] Dr. Sallie Brennan MANUAL DIFF REQ NO Normal [facility] Comment on above: Performed By: #### B DIVERSIFIED CROPS II FARMWORKER, TSH, URIC, LIPID, CMP #### [facility] [address] [place] [address] Dr. Sallie Brennan MCH (RBC) [Entitic mass] 31.3 pg Normal 25.9-34.0 [facility] Comment on above: Performed By: #### B DIVERSIFIED CROPS II FARMWORKER, TSH, URIC, LIPID, CMP #### [facility] [address] [place] [address] Dr. Sallie Brennan MCHC (RBC) [Mass/Vol] 33.1 g/dL Normal 29.9-35.2 [facility] Comment on above: Performed By: #### B DIVERSIFIED CROPS II FARMWORKER, TSH, URIC, LIPID, CMP #### [facility] [address] [place] [address] Dr. Sallie Brennan MCV (RBC) [Entitic vol] 94.5 fL Critically high 80.0-94.0 [facility] Comment on above: Performed By: #### B DIVERSIFIED CROPS II FARMWORKER, TSH, URIC, LIPID, CMP #### [facility] [address] [place] [address] Dr. Sallie Brennan MONO # 0.7 103/ul Normal 0.3-0.8 [facility] Comment on above: Performed By: #### B DIVERSIFIED CROPS II FARMWORKER, TSH, URIC, LIPID, CMP #### [facility] [address] [place] [address] Dr. Sallie Brennan Monocytes/100 WBC (Bld) 9.6 % Normal 1.7-12.0 [facility] Comment on above: Performed By: #### B DIVERSIFIED CROPS II FARMWORKER, TSH, URIC, LIPID, CMP #### [facility] [address] [place] [address] Dr. Sallie Brennan NEUT # 5.2 103/ul Normal 1.4-6.5 [facility] Comment on above: Performed By: #### B DIVERSIFIED CROPS II FARMWORKER, TSH, URIC, LIPID, CMP #### [facility] [address] [place] [address] Dr. Sallie Brennan Neutrophils/100 WBC (Bld) 75.3 % Critically high 43.0-75.0 [facility] Comment on above: Performed By: #### B DIVERSIFIED CROPS II FARMWORKER, TSH, URIC, LIPID, CMP #### [facility] [address] [place] [address] Dr. Sallie Brennan Platelet mean volume (Bld) [Entitic vol] 9.9 fL Normal 9.5-13.5 [facility] Comment on above: Performed By: #### B DIVERSIFIED CROPS II FARMWORKER, TSH, URIC, LIPID, CMP #### [facility] [address] [place], [place] [address] Dr. Sallie Brennan PLT 253 103/ul Normal 150-450 [facility] Comment on above: Performed By: #### B DIVERSIFIED CROPS II FARMWORKER, TSH, URIC, LIPID, CMP #### [facility] [address] [place], [place] [address] Dr. Sallie Brennan RBC 3.45 106/ul Critically low 4.70-6.10 [facility] Comment on above: Performed By: #### B DIVERSIFIED CROPS II FARMWORKER, TSH, URIC, LIPID, CMP #### [facility] [address] [place], [place] [address] Dr. Sallie Brennan WBC 6.9 103/ul Normal 4.0-11.0 [facility] Comment on above: Performed By: #### B DIVERSIFIED CROPS II FARMWORKER, TSH, URIC, LIPID, CMP #### [facility] [address] [address] [address] Sallie Brennan Covid-19 PCR (CVDTB)on SARS-CoV-2 (COVID-19) RNA ESCOBAR+probe Ql (Unsp spec) Not detected Normal NOT DETECTED [facility] Comment on above: Result Comment: This test is not yet approved or cleared by the [place] FDA. When there are no FDA-approved or cleared tests available, and other criteria are met, FDA can make tests available under an emergency access mechanism called an Emergency Use Authorization (EUA). The EUA for this test is supported by the [place] of Health and Human Service's (HHS's) declaration [...] consistent with SARS-CoV-2. Performed By: #### C VDTBH #### [facility] [address] [place] [address] Dr. Sallie Brennan INFLUENZA A AND B AGon 08-20 INFLUANE SEE BELOW Normal [facility] Comment on above: Result Comment: Nega tive for Flu A protein angiten. Infection due to Flu A cannot be ruled out. Flu A angiten in the sample may be below the detection limit of the test. Performed By: #### B DIVERSIFIED CROPS II FARMWORKER, TSH, URIC, LIPID, CMP #### [facility] [address] [place] [address] Dr. Sallie Brennan INFLUBNEG SEE BELOW Normal [facility] Comment on above: Result Comment: Nega tive for Flu B protein antigen. Infection due to Flu B cannot be ruled out. Flu B antigen in the sample may be below the detection limit of the test. Performed By: #### B DIVERSIFIED CROPS II FARMWORKER, TSH, URIC, LIPID, CMP #### [facility] [address] [place] [address] Dr. Sallie Brennan INFLUENZA A AG Negative Normal NEGATIVE SEE COMMENT [facility] Comment on above: Performed By: #### B DIVERSIFIED CROPS II FARMWORKER, TSH, URIC, LIPID, CMP #### [facility] [address] [place] [address] Dr. Sallie Brennan INFLUENZA B AG Negative Normal NEGATIVE SEE COMMENT [facility] Comment on above: Performed By: #### B DIVERSIFIED CROPS II FARMWORKER, TSH, URIC, LIPID, CMP #### [facility] [address] [place] [address] Dr. Sallie Brennan INTERNAL CONTROLS Within Normal Limits Normal Wi thin Normal Limits [facility] Comment on above: Performed By: #### B DIVERSIFIED CROPS II FARMWORKER, TSH, URIC, LIPID, CMP #### [facility] [address] [place] [address] Dr. Sallie Brennan INSULINon 06-10-2022 Insulin 10.9 uIU/mL Normal 2.6-24.9 [facility] Comment on above: Performed By: #### I NSULIN #### [facility] [address] [place] [address] Dr. Sallie Brennan T4, T3U, FTI LABCORPon 06-10 Free Thyroxine Index 2.2 Normal 1.2-4.9 [facility] Comment on above: Performed By: #### T HYLC #### [facility] [address] [place] [address] Dr. Sallie Brennan T3 Uptake 25 % Normal 24-39 [facility] Comment on above: Performed By: #### T HYLC #### [facility] [address] [place] [address] Dr. Sallie Brennan T4 [Mass/Vol] 8.7 ug/dL Normal 4.5-12.0 [facility] Comment on above: Performed By: #### T HYLC #### [facility] [address] [place] [address] Dr. Sallie Brennan BNPon 06-09-2022 Natriuretic peptide B (Bld) [Mass/Vol] 799.0 pg/mL Normal <=1,800.0 [facility] Comment on above: Performed By: #### B DIVERSIFIED CROPS II FARMWORKER, TSH, URIC, LIPID, CMP #### [facility] [address] [place] [address] Dr. Sallie Brennan CBC AUTO DIFFon 06-09-2022 BASO # 0.1 103/ul Normal 0.0-0.1 [facility] Comment on above: Performed By: #### B DIVERSIFIED CROPS II FARMWORKER, TSH, URIC, LIPID, CMP #### [facility] [address] [place] [address] Dr. Sallie Brennan Basophils/100 WBC (Bld) 0.9 % Normal 0.2-2.0 [facility] Comment on above: Performed By: #### B DIVERSIFIED CROPS II FARMWORKER, TSH, URIC, LIPID, CMP #### [facility] [address] [place] [address] Dr. Sallie Brennan EO # 0.2 103/ul Normal 0.0-0.7 [facility] Comment on above: Performed By: #### B DIVERSIFIED CROPS II FARMWORKER, TSH, URIC, LIPID, CMP #### [facility] [address] [place] [address] Dr. Sallie Brennan Eosinophils/100 WBC (Bld) 3.5 % Normal 0.9-7.0 [facility] Comment on above: Performed By: #### B DIVERSIFIED CROPS II FARMWORKER, TSH, URIC, LIPID, CMP #### [facility] [address] [place] [address] Dr. Sallie Brennan Erythrocyte distribution width (RBC) [Ratio] 13.8 % Normal 11.0-15.0 [facility] Comment on above: Performed By: #### B DIVERSIFIED CROPS II FARMWORKER, TSH, URIC, LIPID, CMP #### [facility] [address] [place] [address] Dr. Sallie Brennan Hematocrit (Bld) [Volume fraction] 36.0 % Critically low 42.0-54.0 [facility] Comment on above: Performed By: #### B DIVERSIFIED CROPS II FARMWORKER, TSH, URIC, LIPID, CMP #### [facility] [address] [place] [address] Dr. Sallie Brennan Hemoglobin (Bld) [Mass/Vol] 11.6 g/dL Critically low 14.0-18.0 [facility] Comment on above: Performed By: #### B DIVERSIFIED CROPS II FARMWORKER, TSH, URIC, LIPID, CMP #### [facility] [address] [place] [address] Dr. Sallie Brennan IG # 0.01 10e3/ul Normal 0.00-0.03 [facility] Comment on above: Performed By: #### B DIVERSIFIED CROPS II FARMWORKER, TSH, URIC, LIPID, CMP #### [facility] [address] [place] [address] Dr. Sallie Brennan IG % 0.2 % Normal 0.0-0.5 [facility] Comment on above: Performed By: #### B DIVERSIFIED CROPS II FARMWORKER, TSH, URIC, LIPID, CMP #### [facility] [address] [place] [address] Dr. Sallie Brennan LYMPH # 0.8 103/ul Critically low 1.2-3.8 [facility] Comment on above: Performed By: #### B DIVERSIFIED CROPS II FARMWORKER, TSH, URIC, LIPID, CMP #### [facility] [address] [place] [address] Dr. Sallie Brennan Lymphocytes/100 WBC (Bld) 14.0 % Critically low 20.5-60.0 [facility] Comment on above: Performed By: #### B DIVERSIFIED CROPS II FARMWORKER, TSH, URIC, LIPID, CMP #### [facility] [address] [place] [address] Dr. Sallie Brennan MANUAL DIFF REQ NO Normal [facility] Comment on above: Performed By: #### B DIVERSIFIED CROPS II FARMWORKER, TSH, URIC, LIPID, CMP #### [facility] [address] [place] [address] Dr. Sallie Brennan MCH (RBC) [Entitic mass] 31.4 pg Normal 25.9-34.0 [facility] Comment on above: Performed By: #### B DIVERSIFIED CROPS II FARMWORKER, TSH, URIC, LIPID, CMP #### [facility] [address] [place] [address] Dr. Sallie Brennan MCHC (RBC) [Mass/Vol] 32.2 g/dL Normal 29.9-35.2 [facility] Comment on above: Performed By: #### B DIVERSIFIED CROPS II FARMWORKER, TSH, URIC, LIPID, CMP #### [facility] [address] [place] [address] Dr. Sallie Brennan MCV (RBC) [Entitic vol] 97.3 fL Critically high 80.0-94.0 [facility] Comment on above: Performed By: #### B DIVERSIFIED CROPS II FARMWORKER, TSH, URIC, LIPID, CMP #### [facility] [address] [place] [address] Dr. Sallie Brennan MONO # 0.4 103/ul Normal 0.3-0.8 [facility] Comment on above: Performed By: #### B DIVERSIFIED CROPS II FARMWORKER, TSH, URIC, LIPID, CMP #### [facility] [address] [place] [address] Dr. Sallie Brennan Monocytes/100 WBC (Bld) 8.2 % Normal 1.7-12.0 [facility] Comment on above: Performed By: #### B DIVERSIFIED CROPS II FARMWORKER, TSH, URIC, LIPID, CMP #### [facility] [address] [place] [address] Dr. Sallie Brennan NEUT # 3.9 103/ul Normal 1.4-6.5 [facility] Comment on above: Performed By: #### B DIVERSIFIED CROPS II FARMWORKER, TSH, URIC, LIPID, CMP #### [facility] [address] [place] [address] Dr. Sallie Brennan Neutrophils/100 WBC (Bld) 73.2 % Normal 43.0-75.0 [facility] Comment on above: Performed By: #### B DIVERSIFIED CROPS II FARMWORKER, TSH, URIC, LIPID, CMP #### [facility] [address] [place] [address] Dr. Sallie Brennan Platelet mean volume (Bld) [Entitic vol] 9.6 fL Normal 9.5-13.5 [facility] Comment on above: Performed By: #### B DIVERSIFIED CROPS II FARMWORKER, TSH, URIC, LIPID, CMP #### [facility] [address] [place] [address] Dr. Sallie Brennan PLT 239 103/ul Normal 150-450 [facility] Comment on above: Performed By: #### B DIVERSIFIED CROPS II FARMWORKER, TSH, URIC, LIPID, CMP #### [facility] [address] [place] [address] Dr. Sallie Brennan RBC 3.70 106/ul Critically low 4.70-6.10 [facility] Comment on above: Performed By: #### B DIVERSIFIED CROPS II FARMWORKER, TSH, URIC, LIPID, CMP #### [facility] [address] [place] [address] Dr. Sallie Brennan WBC 5.4 103/ul Normal 4.0-11.0 [facility] Comment on above: Performed By: #### B DIVERSIFIED CROPS II FARMWORKER, TSH, URIC, LIPID, CMP #### [facility] Laboratory [address] [place] [address] Dr. Sallie Brennan GLYCOHEMOGLOBIN A1Con 2021 ADA RECOMMENDATION SEE BELOW Normal [facility] Comment on above: Result Comment: ADA RECOMMENDED LIMIT 4.0 - 6.0 ADA THERAPEUTIC TARGET < 7.0 ACTION SUGGESTED > 7.0 Performed By: #### B DIVERSIFIED CROPS II FARMWORKER, TSH, URIC, LIPID, CMP #### [facility] [address] [place] [address] Dr. Sallie Brennan Glucose [Mass/Vol] 174 mg/dL Normal [facility] Comment on above: Performed By: #### B DIVERSIFIED CROPS II FARMWORKER, TSH, URIC, LIPID, CMP #### [facility] [address] [address] [address] Sallie Brennan HbA1c (Bld) [Mass fraction] 7.7 % Critically high 4.5-6.2 [facility] Comment on above: Performed By: #### B DIVERSIFIED CROPS II FARMWORKER, TSH, URIC, LIPID, CMP #### [facility] [address] [place] [address] Dr. Sallie Brennan LIPID PROFILEon 06-09-2022 CHOL-HDL RATIO NORM SEE BELOW Normal [facility] Comment on above: Result Comment: 3.3 - 4.4 LOW RISK 4.4 - 7.1 AVERAGE RISK 7.1 - 11.0 MODERATE RISK >11.0 HIGH RISK Performed By: #### B DIVERSIFIED CROPS II FARMWORKER, TSH, URIC, LIPID, CMP #### [facility] [address] [place] [address] Dr. Sallie Brennan Cholesterol [Mass/Vol] 138 mg/dL Normal <=200 [facility] Comment on above: Performed By: #### B DIVERSIFIED CROPS II FARMWORKER, TSH, URIC, LIPID, CMP #### [facility] [address] [place] [address] Dr. Sallie Brennan Cholesterol in HDL [Mass/Vol] 38 mg/dL Critically low 40-60 [facility] Comment on above: Performed By: #### B DIVERSIFIED CROPS II FARMWORKER, TSH, URIC, LIPID, CMP #### [facility] [address] [place] [address] Dr. Sallie Brennan Cholesterol in LDL [Mass/Vol] 55.6 mg/dL Normal [facility] Comment on above: Performed By: #### B DIVERSIFIED CROPS II FARMWORKER, TSH, URIC, LIPID, CMP #### [facility] [address] [place] [address] Dr. Sallie Brennan Cholesterol.total/Cho lesterol in HDL [Mass ratio] 3.6 {ratio} Normal [facility] Comment on above: Performed By: #### B DIVERSIFIED CROPS II FARMWORKER, TSH, URIC, LIPID, CMP #### [facility] [address] [place] [address] Dr. Sallie Brennan HDL NORMAL > or = 60 mg/dl - LO W CARDIOVASCULAR RISK <40 mg/dl - HIGH CARDIOVASCULAR RISK Normal [facility] Comment on above: Performed By: #### B DIVERSIFIED CROPS II FARMWORKER, TSH, URIC, LIPID, CMP #### [facility] [address] [place] [address] Dr. Sallie Brennan LDL CALC NORMAL SEE BELOW Normal [facility] Comment on above: Result Comment: <100 mg/dl OPTIMAL 100 - 129 mg/dl NEAR OR ABOVE OPTIMAL 130 - 159 mg/dl BORDERLINE HIGH 160 - 189 mg/dl HIGH >190 mg/dl VERY HIGH Performed By: #### B DIVERSIFIED CROPS II FARMWORKER, TSH, URIC, LIPID, CMP #### [facility] [address] [address] [address] Sallie Brennan Triglyceride [Mass/Vol] 222 mg/dL Critically high <=150 [facility] Comment on above: Performed By: #### B DIVERSIFIED CROPS II FARMWORKER, TSH, URIC, LIPID, CMP #### [facility] [address] [place] [address] Dr. Sallie Brennan VLDL CALC 44.4 mg/dL Normal [facility] Comment on above: Performed By: #### B DIVERSIFIED CROPS II FARMWORKER, TSH, URIC, LIPID, CMP #### [facility] [address] [place] [address] Dr. Sallie Brennan PROF 14(COMP METB)on 022 Albumin [Mass/Vol] 3.8 g/dL Normal 3.4-5.0 [facility] Comment on above: Performed By: #### B DIVERSIFIED CROPS II FARMWORKER, TSH, URIC, LIPID, CMP #### [facility] [address] [place] [address] Dr. Sallie Brennan Albumin/Globulin [Mass ratio] 1.2 {ratio} Normal [facility] Comment on above: Performed By: #### B DIVERSIFIED CROPS II FARMWORKER, TSH, URIC, LIPID, CMP #### [facility] [address] [place] [address] Dr. Sallie Brennan ALP [Catalytic activity/Vol] 51 U/L Normal 46-116 [facility] Comment on above: Performed By: #### B DIVERSIFIED CROPS II FARMWORKER, TSH, URIC, LIPID, CMP #### [facility] [address] [place] [address] Dr. Sallie Brennan ALT [Catalytic activity/Vol] 34 U/L Normal 16-63 [facility] Comment on above: Performed By: #### B DIVERSIFIED CROPS II FARMWORKER, TSH, URIC, LIPID, CMP #### [facility] [address] [place] [address] Dr. Sallie Brennan Anion gap [Moles/Vol] 13.0 mmol/L Normal Th e [facility] Comment on above: Performed By: #### B DIVERSIFIED CROPS II FARMWORKER, TSH, URIC, LIPID, CMP #### [facility] [address] [place] [address] Dr. Sallie Brennan AST [Catalytic activity/Vol] 38 U/L Critically high 15-37 [facility] Comment on above: Performed By: #### B DIVERSIFIED CROPS II FARMWORKER, TSH, URIC, LIPID, CMP #### [facility] [address] [place] [address] Dr. Sallie Brennan Bilirubin [Mass/Vol] 0.7 mg/dL Normal 0.2-1.0 [facility] Comment on above: Performed By: #### B DIVERSIFIED CROPS II FARMWORKER, TSH, URIC, LIPID, CMP #### [facility] [address] [place] [address] Dr. Sallie Brennan Calcium [Mass/Vol] 9.5 mg/dL Normal 8.5-10.1 [facility] Comment on above: Performed By: #### B DIVERSIFIED CROPS II FARMWORKER, TSH, URIC, LIPID, CMP #### [facility] [address] [place] [address] Dr. Sallie Brennan Chloride [Moles/Vol] 105 mmol/L Normal 98-107 [facility] Comment on above: Performed By: #### B DIVERSIFIED CROPS II FARMWORKER, TSH, URIC, LIPID, CMP #### [facility] [address] [place] [address] Dr. Sallie Brennan CO2 [Moles/Vol] 26.5 mmol/L Normal 21.0-32.0 [facility] Comment on above: Performed By: #### B DIVERSIFIED CROPS II FARMWORKER, TSH, URIC, LIPID, CMP #### [facility] [address] [place] [address] Dr. Sallie Brennan Creatinine [Mass/Vol] 0.98 mg/dL Normal 0.70-1.30 [facility] Comment on above: Performed By: #### B DIVERSIFIED CROPS II FARMWORKER, TSH, URIC, LIPID, CMP #### [facility] [address] [address] [address] Sallie Brennan EGFR-AF PAPUA [place] GU[place] >60 Normal >=60 [facility] Comment on above: Performed By: #### B DIVERSIFIED CROPS II FARMWORKER, TSH, URIC, LIPID, CMP #### [facility] [address] [address] [address] Sallie Brennan EGFR-NON AF PAP[place] >60 Normal >=60 [facility] Comment on above: Performed By: #### B DIVERSIFIED CROPS II FARMWORKER, TSH, URIC, LIPID, CMP #### [facility] [address] [address] [address] Sallie Brennan Globulin (S) [Mass/Vol] 3.2 g/dL Normal [facility] Comment on above: Performed By: #### B DIVERSIFIED CROPS II FARMWORKER, TSH, URIC, LIPID, CMP #### [facility] [address] [place] [address] Dr. Sallie Brennan Glucose [Mass/Vol] 168 mg/dL Critically high 74-106 [facility] Comment on above: Performed By: #### B DIVERSIFIED CROPS II FARMWORKER, TSH, URIC, LIPID, CMP #### [facility] [address] [address] [address] Sallie Brennan Potassium [Moles/Vol] 4.5 mmol/L Normal 3.5-5.1 [facility] Comment on above: Performed By: #### B DIVERSIFIED CROPS II FARMWORKER, TSH, URIC, LIPID, CMP #### [facility] [address] [address] [address] Sallie Brennan Protein [Mass/Vol] 7.0 g/dL Normal 6.4-8.2 [facility] Comment on above: Performed By: #### B DIVERSIFIED CROPS II FARMWORKER, TSH, URIC, LIPID, CMP #### [facility] [address] [address] [address] Sallie Brennan Sodium [Moles/Vol] 140 mmol/L Normal 136-145 [facility] Comment on above: Performed By: #### B DIVERSIFIED CROPS II FARMWORKER, TSH, URIC, LIPID, CMP #### [facility] [address] [address] [address] Sallie Brennan Urea nitrogen [Mass/Vol] 19.0 mg/dL Critically high 7.0-18.0 [facility] Comment on above: Performed By: #### B DIVERSIFIED CROPS II FARMWORKER, TSH, URIC, LIPID, CMP #### [facility] [address] [place] [address] Dr. Sallie Brennan Urea nitrogen/Creatinine [Mass ratio] 19.4 mg/mg Normal [facility] Comment on above: Performed By: #### B DIVERSIFIED CROPS II FARMWORKER, TSH, URIC, LIPID, CMP #### [facility] [address] [place] [address] Dr. Sallie Brennan TSHon 06-09-2022 TSH 1.522 uIU/mL Normal 0.358-3.74 0 [facility] Comment on above: Performed By: #### B DIVERSIFIED CROPS II FARMWORKER, TSH, URIC, LIPID, CMP #### [facility] [address] [place] [address] Dr. Sallie Brennan URIC ACID SERUMon 06-09-2022 Urate [Mass/Vol] 6.3 mg/dL Normal 3.5-7.2 [facility] Comment on above: Performed By: #### B DIVERSIFIED CROPS II FARMWORKER, TSH, URIC, LIPID, CMP #### [facility] [address] [place] [address] Dr. Sallie Brennan NM PET CT SKULL-MID THIGH-MCKENNA BSEQUENTon 09-30-[address] SKULL-MID THIGH-SUBSEQUENT [facility] Department of Radiology [address] [place] [id number] Patient Name: LUCIANA BUENROSTRO : 1945 [...] millicuries of fluorine 18-FDG. Blood glucose level [id number] mg/dL at the time of tracer administration. [...] calcifications. Electronically signed: Mirna Talamantes. Transcribed by: [email or web address], User Resident: Electronically Signed by: MIRNA TALAMANTES @ 10/01/2021 10:34 AM Normal [facility] Comment on above: Order Comment: , Hei ght (ft.): 5 ft 11 in , Weight (lbs): 366 , Date of Service: 09/30/2021 , Height (ft.): 5 ft 11 in , Weight (lbs): 366 , Date of Service: 09/30/2021 , , , Ordering Provider - MAGALY SANTILLAN MD , POC GLUCOSE NCon 09-30-2021 Glucose [Mass/Vol] 126 mg/dL High 70-100 [facility] Comment on above: Performed By: #### [id number] #### [address] CHEST WO CONTRASTon 05-27 CT CHEST WO CONTRAST [facility] Department of Radiology [address] [place] [id number] Patient Name: LUCIANA BUENROSTRO : 1945 Sex: M Age: Race: White Pt. 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 Per [facility] A/B for CPT 84213 Med Nec-Passed *SLA Comments: Exam: CT CHEST [...] achievable Electronically signed: Gemma Mace. Transcribed by: [email or web address], User Resident: Electronically Signed by: GEMMA MACE @ 05/28/2021 10:15 AM Normal [facility] NM PET CT SKULL-MID THIGH-MCKENNA BSEQUENTon 11-19-[address] SKULL-MID THIGH-SUBSEQUENT [facility] Department of Radiology [address] [place] [phone] Patient Name: LUCIANA BUENROSTRO : 1945 Sex: M Age: Race: White Pt. 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 Blood glucose level [id number] mg/dL at the time of tracer administration. [...] metastasis. Electronically signed: Gemma Mace. Transcribed by: [email or web address], User Resident: Electronically Signed by: GEMMA MACE @ 11/20/2020 10:34 AM Normal [facility] Comment on above: Order Comment: , F/U right upper lobe lung lesion , Appointment Date: 11/19/2020 , Appointment Time: , Height (ft.): 5 ft 11 in , Weight (lbs): 371 , F/U right upper lobe lung lesion , Appointment Date: 11/19/2020 , Appointment Time: , Height (ft.): 5 ft 11 in , Weight (lbs): 371 , , , Ordering Provider - MAGALY SANTILLAN MD , POC GLUCOSE NCon 11-19-2020 Glucose [Mass/Vol] 138 mg/dL High 70-100 [facility] Comment on above: Performed By: #### [id number] #### [address] CHEST WO CONTRASTon 10-22 CT CHEST WO CONTRAST [facility] Department of Radiology [address] [place] [phone] Patient Name: LUCIANA BUENROSTRO : 1945 Sex: M Age: Race: White Pt. 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 Transcribed by: [email or web address], User Resident: Electronically Signed by: GEMMA MACE @ 10/23/2020 09:24 AM Normal [facility] Comment on above: Order Comment: No co ntrast on chest CT per Dr. Santillan CT UPPER EXTREMITY W CONTRAS T RIGHTon 10-22-2020 CT UPPER EXTREMITY W CONTRAST RIGHT [facility] Department of Radiology [address] [place] [phone] Patient Name: LUCIANA BUENROSTRO : 1945 Sex: M Age: Race: White Pt. Location: 29 Patient Status: D Ordered Date: 10/22/2020 5:00:00 AM Completed Date: 10/22/2020 01:38 PM Requesting Provider: MAGALY SANTILLAN Attending Provider: MAGALY SANTILLAN Report Copy To: EGOVANNA BUNDY Signs & Symptoms: C49.11 Malig neoplm of conn and soft tiss of r Noosh, inc shldr I10 History: Jacinta NPC PER MEDICARE ABN PASSED [phone] 10-08-20 [place] Comments: Exam: CT UPPER EXTREMITY W CONTRAST RIGHT CT UPPER EXTREMITY W CONTRAST RIGHT 10/22/2020 1:38 PM CLINICAL INDICATION: C49.11 Malig neoplm of conn and soft tiss of r Noosh, inc shldr I10 TECHNOLOGIST COMMENTS: hx right [...] documented. Electronically signed: Rafael Mcginnis. Transcribed by: [email or web address], User Resident: Electronically Signed by: RAFAEL MCGINNIS @ 10/23/2020 10:23 AM Normal [facility] SURGICAL PATHOLOGYon 018 SURGICAL PATHOLOGY Specimen #: [id number] Physician: JESSICA CARO M.D. FINAL DIAGNOSISA. 29 slides ([id number]): Soft tissue, right arm, deep, excision - [...] and SOX10. Additional immunohistochemical stains performedat the [facility] show that the cells are also negative for STAT6,ERG and MDM2. In summary, this is a high-grade pleomorphic sarcoma. The presence of asignificant myxoid component with prominent curvilinear vessels makes thedesignation of myxofibrosarcoma, high-grade (grade 3 of 3), mostappropriate.Thank you for the opportunity to provide an opinion in this case. Pleasecall the Bone and Soft Tissue Pathology Consultation Service at [phone] with questions or if additional follow-up information becomesavailable regarding this patient. This case was reviewed in conjunctionwith the Bone and Soft Tissue Pathology fellow, Sanjeev Ross MD.For test results using laboratory developed tests (LDT) in immunohistology:Positive and negative controls stain appropriately. Performancecharacteristics of immunohistochemical, immunofluorescent and chromogenicin-situ hybridization tests have been determined by [facility] [place] ([facility]) maryellen manner consistent with CLIA requirements. One or more of these tests havenot been cleared or approved by the FDA. -[facility] is regulated under CLIA asqualified to perform high-complexity testing. These tests are used forclinical purposes. They should not be regarded as investigational or forresearch.EDGAR/PRIYANK/shanthi 03/28/18teven Antonio Green M.D.(Electronic Signature) SPECIME N SUBMITTEDA: 29 SLIDES ([id number]) CLINICAL DATANone provided.Patient ID #: Date of Report: 03/28/2018Date of Procedure: 03/22/2018Date of Receipt: 03/22/2018Submitted by: JESSICA CARO M.D.Location: Diagnostic interpretation performed at [facility], [address] [place] [address]. Normal [facility] Comment on above: Performed By: #### S ####See report for performing lab information. Vital Signs Date Time Vital Sign Value Performing Clinician Facility 09-26-2023 13:15-0500 Body height 180.34 cm Yulissa Hopper Other [email or web address] Other 09-26-2023 13:15-0500 Body mass index (BMI) [Ratio] 50.76 kg/m2 Yulissa Hopper Other [email or web address] Other 09-26-2023 13:15-0500 Body weight 165.11 kg Yulissa Hopper Other [email or web address] Other 09-26-2023 13:15-0500 Diastolic blood pressure 67 mm[Hg] Yulissa Hopper Other [email or web address] Other 09-26-2023 13:15-0500 SaO2% (BldA) [Mass fraction] 99 % Yulissa Hopper Other [email or web address] Other 09-26-2023 13:15-0500 Systolic blood pressure 130 mm[Hg] Yulissa Hopper Other [email or web address] Other 04-14-2022 15:00-0400 Body height 180.34 cm Yulissa Hopper Other [email or web address] Other 04-14-2022 15:00-0400 Body mass index (BMI) [Ratio] 49.51 kg/m2 Yulissa Hopper Other [email or web address] Other 04-14-2022 15:00-0400 Body temperature 96.6 [degF] Yulissa Hopper Other [email or web address] Other 04-14-2022 15:00-0400 Body weight 161.03 kg Yulissa Hopper Other [email or web address] Other 04-14-2022 15:00-0400 Diastolic blood pressure 76 mm[Hg] Yulissa Hopper Other [email or web address] Other 04-14-2022 15:00-0400 SaO2% (BldA) [Mass fraction] 97 % Yulissa Hopper Other [email or web address] Other 04-14-2022 15:00-0400 Systolic blood pressure 136 mm[Hg] Yulissa Hopper Other [email or web address] Other Encounters Encounter Date Encounter Type Care Provider Facility Start: 04-27-2024 End: [facility] Start: 10-19-2023 End: 10-19-[address] [facility] Start: 09-26-2023 End: 09-26-2023 ambulatory Yulissa Hopper [email or web address] Other Start: 09-26-2023 Office outpatient visit 25 minutes Yulissa Hopper [facility] Start: 07-20-2023 End: 07-20-[address] [facility] Start: 06-23-2023 End: 06-23-2023 ambulatory Farnaz Méndezmarkos Facility:[facility] Start: 06-23-2023 End: 06-23-2023 ambulatory MD Geovanna Bundy Work Phone: [facility] Work Phone: Start: 06-23-2023 End: 06-23-2023 Patient encounter procedure MD Geovanna Bundy Work Phone: [facility] Work Phone: Start: 06-14-2023 End: 06-14-2023 ambulatory FARNAZ RUGGIERO [facility] Start: 04-11-2023 End: 04-11-2023 Emergency department patient visit EDWARD PERSON Facility:[facility] Start: 01-06-2023 End: 01-07-2023 ambulatory GEOVANNA HOY Facility:[facility] Start: 08-23-2022 End: 08-23-2022 ambulatory GEOVANNA HOY Facility:[facility] Start: 08-21-2022 End: 08-22-2022 ambulatory GEOVANNA HOY Facility:[facility] Start: 08-20-2022 End: 08-20-2022 ambulatory GEOVANNA HOY Facility:[facility] Start: 06-09-2022 End: 06-10-2022 ambulatory GEOVANNA HOY Facility:[facility] Start: 04-14-2022 End: 04-14-2022 ambulatory Yulissa Hopper Other [employer] Other Start: 04-14-2022 Office outpatient visit 25 minutes Yulissa Hopper [facility] Start: 03-01-2022 ambulatory BALJINDER [facility] l[facility] Start: 09-30-2021 End: 10-01-2021 ambulatory MAGALY SANTILLAN Facility:[facility] Procedures Date Procedure Procedure Detail Performing Clinician Start: 04-27-2024 Follow-up visit Follow-up FARNAZ RUGGIERO Start: 06-09-2022 PSA screening GEOVANNA H OY Comment on above: Performed By: #### P [facility] #### [facility] [address] [place] [address] Dr. Sallie Brennan Payers Date Payer Category Payer Self-pay [id number] 1960 Medicare [id number] 1960 Unknown [id number] 1945 Unknown [id number] 2.16.8 [id number] 1945 Unknown [id number] 2.16.84 [id number] 1945 Unknown [id number] 2.16.84 [id number] 1945 Unknown [id number] 2.16.84 [id number] 1945 Unknown [id number] 2.16.84 [id number] 1945 Unknown [id number] 2.16.84 [id number] 1945 Unknown [id number] 2.16.84 [id number] 1945 Unknown [id number] 2.16.8 [id number] Unknown [id number] 2.16.8 [id number] Unknown [id number] 2.16.8 [id number] Social History Date Type Detail Facility Unknown if ever smoked [email or web address] Other Sex Assigned At Sex Assigned At Bir th [email or web address] Other Start: 1945 Sex Assigned At Male [facility] Clinical Notes 04-14-2022 to 04-27-2024 Note Date & Type Note Facility 04-27-2024 Note Cardiovascular Medic [facility] SUBJECTIVE Chief Complaint Patient presents with Follow-up 6 month follow up Luciana Buenrostro is a 78 y.o. male here for follow-up. His home health aide was present during visit as well. HPI PMHx: HFpEF, a.fib, HTN, HLD, DM type II, CKD Overall, patient has been doing well. During his last clinic appointment, his Lasix was increased to twice daily. However, patient admits that he has not been taking it twice daily. He endorses some mild lower extremity edema. He denies any shortness of breath, orthopnea, paroxysmal nocturnal dyspnea. He adamantly denies any chest pain. He denies any additional complaints or concerns at the present time Patient Active Problem List Diagnosis Atrial fibrillation ([facility]) Cholelithiasis without obstruction Other specified diabetes mellitus with diabetic chronic kidney disease ([facility]) Diastolic heart failure ([facility]) Disorder of sacrum Glaucoma Hypertensive disorder Spinal stenosis of lumbar region without neurogenic claudication Lumbosacral spondylosis without myelopathy Mass of upper limb Right inguinal hernia Sarcoma ([facility]/HCC) Secondary malignant neoplasm of right lung ([facility]) Essential (primary) hypertension Unspecified asthma, uncomplicated Sepsis due to methicillin resistant Staphylococcus aureus ([facility]) Other pneumonia, unspecified organism Muscle weakness (generalized) Morbid (severe) obesity due to excess calories ([facility]) Major depressive disorder, recurrent, unspecified ([facility]) Difficulty in walking, not elsewhere classified Closed fracture of left hip ([facility]) Chronic pain syndrome Chronic kidney disease, stage 2 (mild) Cellulitis of left lower limb Cellulitis of right lower limb Anemia, unspecified Closed fracture of distal end of left radius with routine healing Benign hypertensive heart disease with heart failure ([facility]) Mixed hyperlipidemia Cellulitis of unspecified part of limb Encounter for other specified surgical aftercare Gastro-esophageal reflux disease without esophagitis Malignant neoplasm of unspecified part of unspecified bronchus or lung ([facility]) Sleep apnea Type 2 diabetes mellitus without complication ([facility]) Past Medical History: Diagnosis Date Atrial fibrillation ([facility]/HCC) CHF (congestive heart failure) ([facility]) Diabetes mellitus ([facility]) Hyperlipidemia Hypertension Sarcoma ([facility]) Sarcoma right arm Sleep apnea Family History [...] and are negative. OBJECTIVE Visit Vitals BP 130/70 (BP Location: Right arm, Patient Position: Sitting, BP Cuff Size: Adult) Pulse 87 Resp 15 Ht 1.803 m (5' 11 ) Wt (!) 165 kg (363 lb) SpO2 97% BMI 50.63 kg/m??? Smoking Status Former BSA 2.87 m??? Medications: Current Outpatient Medications: amLODIPine (Norvasc) [...] by mouth in the morning and at bedtime., Disp: , Rfl: glipiZIDE (Glucotrol) 10 mg [...] UNITS SUBCUTANEOUSLY TWICE DAILY, Disp: , Rfl: lisinopril 20 mg tablet, Take 20 mg by mouth in the morning., Disp: , Rfl: metFORMIN (Glucophage) 1,000 mg tablet, metformin 1,000 mg table (more content not included)... [facility] 10-19-2023 Note Cardiovascular Medic ine [facility] SUBJECTIVE Chief Complaint Patient presents with Hypertension Congestive Heart Failure Luciana Buenrostro is a 78 y.o. male here for follow-up. His home health aide was present during visit as well. HPI PMHx: HFpEF, a.fib, HTN, HLD, DM type II, CKD He has been feeling well. Dr. Bundy increased his lasix to BID due to worsening leg swelling. Weight at home has been stable, averaging 350-360. His BLE edema has been controlled, better with increased dose of lasix. He wears compression stockings. Denies CP, dyspnea, orthopnea, PND, dizziness/LH, syncope. [...] disease with heart failure (CMS/HCC) Mixed hyperlipidemia Cellulitis of unspecified part of limb Encounter for other specified surgical aftercare Gastro-esophageal reflux disease without esophagitis Malignant neoplasm of unspecified part of unspecified bronchus or lung (CMS/HCC) Sleep apnea Type 2 diabetes mellitus without complication (CMS/HCC) Past Medical History: Diagnosis Date Atrial fibrillation [...] and are negative. OBJECTIVE Visit Vitals BP 132/74 (BP Location: Right arm, Patient Position: Sitting) Pulse 67 Ht 1.803 m (5' 11 ) Wt (!) 165 kg (363 lb) SpO2 98% BMI 50.63 kg/m??? Smoking Status Former BSA 2.87 m??? Medications: Current Outpatient Medications: amLODIPine (Norvasc) [...] by mouth in the morning and at bedtime., Disp: , Rfl: glipiZIDE (Glucotrol) 10 mg [...] UNITS SUBCUTANEOUSLY TWICE DAILY, Disp: , Rfl: lisinopril 20 mg tablet, Take 20 mg by mouth in the morning., Disp: , Rfl: metFORMIN (Glucophage) 1,000 mg tablet, metformin 1,000 mg tablet Take 1 tablet twice a day by oral route for 90 days., Disp: , Rfl: multivitamin capsule, Take 1 capsule by mouth in th (more content not included)... [facility] 10-19-2023 Note Patient here for 3 m o follow up chronic systolic heart failure, hypertension, and PAF. Says Dr. Bundy doubled his lasix awhile ago . Denies chest pain, SOB, palpitations, lightheadedness/syncope, and bleeding on Eliquis. Review of Systems Cardiovascular: Positive for leg swelling. All other systems reviewed and are negative. [facility] 09-26-2023 Evaluation note Encounter Date Diagnosis Assessment [...] length.. A prescription was sent to the [facility] for new supplies throughout the year, as [...] in a timely fashion. Do not smoke. [email or web address] Other 11-08-2023 NoteCardiovascular Medicine [facility] SUBJECTIVE Chief Complaint Patient presents with Congestive [...] mouth in the morning., (more content not included)...[facility]11-08-2023 Note Patient here for 1 mo follow up HFpEF, hypertension, hyperlipidemia, and afib. Potassium was reduced to 10mEq daily at last visit. Follow up BMP hasn't been drawn yet. He is no longer taking lisinopril, but PCP has added spironolactone. Denies chest pain, SOB, palpitations, falls, and bleeding on Eliquis. Review of Systems Cardiovascular: Positive for leg swelling. All other systems reviewed and are negative.[facility] 06-14-2023 NotePatient here for 9 mo follow up HFpEF, hHTN, HLD, and PAF. He was admitted to [facility] in March 2023 for fluid overload. Still SOB at rest at times. Denies chest pain and bleeding on Eliquis. Had routine labs w/ lipid last week.[facility]10-03-2023 NoteCardiology Follow Up Progress Note Chief Complaint: clinic follow up HPI: Ben Buenrostro is a 77 y.o. male with a past medical history including HTN, HLD, Afib, and HFpEF. Patient presents to cardiology clinic for routine follow-up. Patient was admitted to [facility] in March for volume overload. Patient states [...] Well developed, Well n (more content not included)...[facility]08-03-2022 Evaluation note* Encounter Date Diagnosis Assessment Notes Treatment Notes Treatment Clinical Notes Apr, Obstructive sleep apnea (ICD-10 - G47.33) Fortunately, the patient is using and benefiting from treatment. Download was reviewed with patient, Current pressure is controlling apnea well, And we will make no changes at this time. A prescription was sent to the [facility] for new supplies throughout the year. He [...] in a timely fashion. Do not smoke. [email or web address] Other Evaluation noteNo assessment information available [facility] Work Phone: History general Narrative - Reported* Type Description Date Medical History Obstructive sleep apnea Medical History [...] Hospitalization History see above Hospitalization History cellulitis [email or web address] Other Summary Purpose Family History No Family History Records FoundNo Family History Records FoundNo Family History Records FoundNo Family History Records FoundNo Family History Records FoundNo Family History Records Found Advance Directives No Advanced Directives Records Found Advance Directive Response Recorded Date/ Time Advance Directives No February 03 8 11:58am Additional Source Comments (unrecognized sect ion and content) No Status Records FoundNo Status Records FoundNo Status Records FoundNo Status Records FoundNo Status Records FoundNo Status Records Found INFORMATION SOURCE (unrecogn ized section and content) DATE CREATED AUTHOR 03/30/2018 [facility] DATE CREATED AUTHOR AUTHOR'S ORGANIZ ATION 10/02/2021 [facility] DATE CREATED AUTHOR AUTHOR'S ORGANIZ ATION 01/10/2023 [facility] DATE CREATED AUTHOR AUTHOR'S ORGANIZ ATION 04/17/2023 [facility] DATE CREATED AUTHOR AUTHOR'S ORGANIZ ATION 10/21/2023 [facility] DATE CREATED AUTHOR AUTHOR'S ORGANIZ ATION 04/29/2024 [facility] REASON FOR VISIT (unrecogniz ed [...] BE BASED ON THE PRIMARY CLINICAL RECORDS. [facility] [employer] [facility]. provides no warranty or guarantee of the accuracy or completeness of information in this document.
[2024-07-10 09:31] LABS: Basophils Percent Auto 0.6 % (0.2-2.0); Eosinophils Absolute Auto 0.1 10^3/uL (0.0-0.7); Eosinophils Percent Auto 1.6 % (0.9-7.0); Hematocrit 34.6 % (42.0-54.0); Hemoglobin 11.4 g/dL (14.0-18.0); Immature Granulocytes Abs Auto 0.03 10^3/uL (0.00-0.03); Immature Granulocytes Pct Auto 0.4 % (0.0-0.5); Lymphocytes Absolute Auto 0.8 10^3/uL (1.2-3.8); Lymphocytes Percent Auto 11.3 % (20.5-60.0); Mean Corpuscular HGB Conc 32.9 g/dL (29.9-35.2); Mean Corpuscular Volume 97.2 fL (80.0-94.0); Mean Platelet Volume 9.6 fL (9.5-13.5); Monocytes Absolute Auto 0.5 10^3/uL (0.3-0.8); Monocytes Percent Auto 7.3 % (1.7-12.0); Neutrophils Absolute Auto 5.5 10^3/uL (1.4-6.5); Neutrophils Percent Auto 78.8 % (43.0-75.0); Platelet Count 278 10^3/uL (150-450); Red Blood Count 3.56 10^6/uL (4.70-6.10); Red Cell Distribution Width 13.2 % (11.0-15.0)
[2024-07-10 09:45] LABS: Estimated Average Glucose 255 mg/dL; Glycohemoglobin A1C 10.5 % (4.5-6.2)
[2024-07-10 10:38] LABS: Prostate Specific Antigen Scrn 0.63 ng/mL (<=4.00)
[2024-07-10 10:40] LABS: Alanine Aminotransferase 19 U/L (16-63); Albumin Globulin Ratio 0.8; Albumin Level 3.1 g/dL (3.4-5.0); Alkaline Phosphatase 82 U/L (46-116); Anion Gap 13.2; Aspartate Amino Transferase 13 U/L (15-37); BUN Creatinine Ratio 15.6; Bilirubin Total 0.8 mg/dL (0.2-1.0); Calcium 9.4 mg/dL (8.5-10.1); Carbon Dioxide 28.8 mmol/L (21.0-32.0); Chloride 102 mmol/L (98-107); Cholesterol 157 mg/dL (<=200); Estimated GFR (African America 56 (>=60 mL/min/1.73m^2); Estimated GFR (Non-African Ame 46 (>=60 mL/min/1.73m^2); Free T3 2.45 pg/mL (2.18-3.98); Globulin 3.9 g/dL; Glucose 275 mg/dL (74-106); HDL Cholesterol 39 mg/dL (40-60); Sodium 139 mmol/L (136-145); Thyroid Stimulating Hormone 1.019 uIU/mL (0.358-3.740); Triglycerides 225 mg/dL (<=150)
== END 2024-07-10 08:50 | disposition home or self-care (01) ==
PROVIDERS: PCP Family Medicine; Visit Provider Family Medicine
DX: E78.5 Hyperlipidemia, unspecified (principal); E11.65 Type 2 diabetes mellitus with hyperglycemia; G47.30 Sleep apnea, unspecified; E83.42 Hypomagnesemia; R53.83 Other fatigue; I10 Essential (primary) hypertension; E03.9 Hypothyroidism, unspecified; Z12.5 Encounter for screening for malignant neoplasm of prostate
CPT/HCPCS: 36415; 80053; 80061; 83036; 84436; 84443; 84481; 85025; G0103

== ENCOUNTER 2024-07-31 10:40 | Outpatient (OUT) | payer MEDICARE, SELFPAY ==
[2024-07-31 14:53] LABS: Anion Gap 14.9; BUN Creatinine Ratio 16.4; Calcium 8.8 mg/dL (8.5-10.1); Carbon Dioxide 28.6 mmol/L (21.0-32.0); Chloride 102 mmol/L (98-107); Estimated GFR (African America 56 (>=60 mL/min/1.73m^2); Estimated GFR (Non-African Ame 47 (>=60 mL/min/1.73m^2); Glucose 353 mg/dL (74-106); Potassium 4.5 mmol/L (3.5-5.1); Sodium 141 mmol/L (136-145)
== END 2024-07-31 10:41 | disposition home or self-care (01) ==
LOC: LAB 10:44
PROVIDERS: PCP Family Medicine; Visit Provider Nurse Practitioner Family
DX: I50.33 Acute on chronic diastolic (congestive) heart failure (principal)
CPT/HCPCS: 36415; 80048; 83880

== ENCOUNTER 2025-01-14 09:37 | Outpatient (OUT) | payer MEDICARE, SELFPAY ==
[2025-01-14 10:40] LABS: BUN Creatinine Ratio 14.4; Carbon Dioxide 27.7 mmol/L (21.0-32.0); Chloride 99 mmol/L (98-107); Estimated GFR (African America 46 (>=60 mL/min/1.73m^2); Estimated GFR (Non-African Ame 38 (>=60 mL/min/1.73m^2); Glucose 340 mg/dL (74-106); Potassium 4.7 mmol/L (3.5-5.1); Sodium 137 mmol/L (136-145)
== END 2025-01-14 09:38 | disposition home or self-care (01) ==
LOC: LAB 09:39
PROVIDERS: PCP Family Medicine; Visit Provider Internal Medicine Interventional Cardiology
DX: I48.19 Other persistent atrial fibrillation (principal); N18.31 Chronic kidney disease, stage 3a
CPT/HCPCS: 36415; 80048

== ENCOUNTER 2025-03-19 09:09 | Outpatient (OUT) | payer MEDICARE, SELFPAY ==
--- NOTE | 2025-03-19 08:59 | PM.WCHP ---
Wound Care H&P: HPI History of Present Illness Narrative: The is a pleasant 79-year-old gentleman with history of type 2 diabetes and neuropathy who presents for routine nail care. He notes some pain on the left fifth toe due to mechanical irritation in shoe gear. He has no other complaints at this time. [facility] Medical History (Updated 03/19/25 @ 09:03 by TITO Stanton) Fluid overload ?E87.70 - Fluid overload, unspecified (ICD-10) Hernia ?K46.9 - Unspecified abdominal hernia without obstruction or gangrene (ICD-10) Diabetes ?E11.9 - Type 2 diabetes mellitus without complications (ICD-10) Afib ?I48.91 - Unspecified atrial fibrillation (ICD-10) Left wrist fracture ?S62.102A - Fracture of unspecified carpal bone, left wrist, initial encounter for closed fracture (ICD-10) Fall ?W19.XXXA - Unspecified fall, initial encounter (ICD-10) Surgical History (Updated 04/11/23 @ 17:30 by Zahra Caban) History of left knee replacement ?Z96.652 - Presence of left artificial knee joint (ICD-10) Family History (Updated 04/11/23 @ 17:32 by Zahra Caban) Other Family history of CHF (congestive heart failure) Family history of cancer Family history of diabetes mellitus Family history of hypertension Family history of stroke Social History Do you think of yourself as: straight/heterosexual Gender Identity: male Meds Home Medications and Allergies Home Medications ?Medication ?Instructions ?Recorded ?Confirmed ?Type acetaminophen 500 mg capsule 1,000 mg PO Q6H PRN fever or pain 04/11/23 04/11/23 History amlodipine 10 mg tablet 10 mg PO DAILY 04/11/23 04/11/23 History apixaban 5 mg tablet (Eliquis) 5 mg PO BID 04/11/23 04/11/23 History aspirin 81 mg capsule 81 mg PO DAILY 04/11/23 04/11/23 History atorvastatin 20 mg tablet 20 mg PO BEDTIME 04/11/23 04/11/23 History bisacodyl 5 mg tablet 5 mg PO BID PRN constipation 04/11/23 04/11/23 History cetirizine 10 mg capsule 10 mg PO DAILY 04/11/23 04/11/23 History cholecalciferol (vitamin D3) 25 2,000 unit PO DAILY 04/11/23 04/11/23 History mcg (1,000 unit) capsule duloxetine 30 mg capsule,delayed 30 mg PO DAILY 04/11/23 04/11/23 History release ferrous sulfate 325 mg (65 mg 325 mg PO DAILY 04/11/23 04/11/23 History iron) tablet (Feosol) glipizide 10 mg tablet 10 mg PO BID 04/11/23 04/11/23 History hydralazine 100 mg tablet 100 mg PO TID 04/11/23 04/11/23 History insulin glargine 100 unit/mL (3 10 unit subcut BID 04/11/23 04/11/23 History mL) subcutaneous pen insulin lispro 100 unit/mL 1 sliding scale dose subcut 04/11/23 04/11/23 History subcutaneous pen (Humalog KwikPen USEASDIRECTD (U-100) Insulin) labetalol 100 mg tablet 100 mg PO BID 04/11/23 04/11/23 History lisinopril 20 mg tablet 20 mg PO DAILY 04/11/23 04/11/23 History metformin 1,000 mg tablet 1,000 mg PO BID 04/11/23 04/11/23 History multivitamin (Daily Multi-Vitamin 1 tab PO DAILY 04/11/23 04/11/23 History tablet) nystatin 100,000 unit/gram topical 1 applic topical DAILY 04/11/23 04/11/23 History powder (Nyamyc) omeprazole 20 mg tablet,delayed 20 mg PO DAILY 04/11/23 04/11/23 History release oxybutynin chloride 5 mg tablet 5 mg PO DAILY 04/11/23 04/11/23 History oxycodone 5 mg tablet 5 mg PO Q12H PRN pain 04/11/23 04/11/23 History potassium chloride 10 mEq 20 meq PO DAILY 04/11/23 04/11/23 History tablet,extended release(part/cryst) (Klor-Con M) pregabalin 75 mg capsule (Lyrica) 75 mg PO DAILY 04/11/23 04/11/23 History spironolactone 25 mg tablet 25 mg PO DAILY 04/11/23 04/11/23 History (Aldactone) timolol maleate 0.5 % eye drops 1 drp ophthalmic (eye) DAILY 04/11/23 04/11/23 History amino acids-protein hydrolysate 15 30 ea PO BID #2,880 mL 04/13/23 Rx gram-100 kcal/30 mL oral liquid pkt (Pro-Stat Sugar Free) ferrous sulfate 325 mg (65 mg 325 mg PO BID #60 tabs 04/13/23 Rx iron) tablet furosemide 40 mg tablet 40 mg PO QD #30 tabs 04/13/23 Rx liothyronine 5 mcg tablet 5 mcg PO ACB #30 tabs 04/13/23 Rx magnesium oxide 400 mg (241.3 mg 400 mg PO BID #60 tabs 04/13/23 Rx magnesium) tablet Allergies Allergy/AdvReac Type Severity Reaction Status Date / Time Sulfa (Sulfonamide Allergy Mild Verified 04/11/23 17:34 Antibiotics) Exam Narrative: Exam Narrative: Derm: Toenails 1 through 10 are thickened, elongated, mycotic, and painful.? No evidence of paronychia.? Skin is diffusely dry, thin, and atrophic.? Hemosiderin staining present on the lower legs bilaterally with waxy plaques consistent with venous stasis dermatitis. Vascular: PT pulses are nonpalpable bilaterally.? DP pulses are 2/4 bilaterally.? Capillary refill is less than 3 seconds to all toes. Digital hair is absent bilaterally. Neuro: Vibratory sensation is absent bilaterally.? Achilles deep tendon reflex is absent bilaterally.? Protective sensation was tested with a monofilament and is present in 1/5 areas tested on the right and 2/5 areas tested on the left.? Musculoskeletal: No gross deformity.? Strength 5-/5 in all planes bilaterally Assessment and Plan Assessment and Plan (1) Tinea unguium: (2) Onychogryphosis: (3) Nail dystrophy: (4) Type 2 diabetes mellitus with diabetic neuropathy, unspecified: (5) Diminished pulses in lower extremity: (6) Abnormality of gait due to impairment of balance: Plan Routine nail care performed without incident. Recommended Band-Aid with or without a dab of Aquaphor or Vaseline on the left fifth toe to prevent ulceration. Follow-up in 3 months or as needed. Acute Procedures Podiatry Nail Debridement Class B Findings Absent posterior tibial pulse: bilateral Advanced trophic changes as evidenced by any three of the following: decreased hair growth, nail changes (thickening), pigmentary changes (discoloring) and skin texture (thin or shiny) Class C Findings Claudication: No Temperature changes: No Edema: Yes Nail debridement paresthesia (abnormal spontaneous sensations in the feet): No Burning: No Qualifies If: Qualifiers If:: A patient qualifies for nail debridement if they have: 1 class A finding (Q7) 2 class B findings (Q8) OR 1 class B & 2 class C findings in addition to a primary condition (Q9) Nail Procedure Nail Procedure Time out: Yes Nail procedure: other (Sharp toenail debridement) Number of affected nails: 10 Location (toes): left and right Procedure successful: Yes Patient tolerated procedure: well and no complications Additional comments: Toenails 1 through 10 were sharply debrided with nail nippers without incident
== END 2025-03-19 09:10 | disposition home or self-care (01) ==
LOC: WC 09:09
PROVIDERS: PCP Family Medicine; Visit Provider Physician Assistant
DX: B35.1 Tinea unguium (principal); L60.2 Onychogryphosis; L60.3 Nail dystrophy; E11.40 Type 2 diabetes mellitus with diabetic neuropathy, unspecified; I70.213 Atherosclerosis of native arteries of extremities with intermittent claudication, bilateral legs; R26.89 Other abnormalities of gait and mobility
CPT/HCPCS: 11721

== ENCOUNTER 2025-04-05 08:38 | Outpatient (OUT) | payer MEDICARE, SELFPAY ==
--- OUTSIDE RECORDS SUMMARY | 2025-01-02 06:30 | XMS_ITS ---
Author Organization [facility] in [place] Address [address] [place] [address] Care Team Providers Care Spanish Language Lecturer Name Role Phone Hung Bundy Primary Care Provider [phone] Allergies Allergen (clinical drug ingredient) Drug/Non Drug Allergy documented on EMR Reaction Allergy Type Onset Date Status Substance with sulfonamide structure and antibacterial mechanism of action (substance) Sulfa Antibiotics rash Drug Allergy Active REASON FOR VISIT 3 MO F/U, No concerns per patient Medications Medication SIG (Take, Route, Frequency, Duration) Notes Start Date End Date Status Aspirin 81 81 MG 1 tablet Orally Once a day Active Acetaminophen 500 MG 1 capsule as needed Orally every 6 hrs Active Basaglar KwikPen 100 UNIT/ML Inject 50 units Subcutaneous BID DX E11.9 for 90 days 10/10/2024 Active amLODIPine Besylate 10 MG 1 tablet Orally Once a day for 90 days Active Triamcinolone Acetonide 0.1 % 1 application Externally Twice a day for 30 days 01/06/2024 Active Vitamin D 25 MCG (1000 UT) 1 tablet Orally Once a day Active Timolol Maleate 0.25 % 1 gtt each eye bid Active Test Strips - 1 test strip via meter once daily DX E11.9 for 90 days Patient uses one touch ultra strips- thank you! 09/21/2023 Active Test Strips/Lancets - test blood sugar daily for 1 days 12/30/2023 Active Potassium Chloride ER 10 MEQ 1 tablet with food Orally three times daily for 30 days 03/26/2024 Active Spironolactone 25 MG TAKE 1 TABLET ONCE DAILY for 90 Active metFORMIN HCl 1000 MG TAKE 1 TABLET TWIC E DAILY WITH MEALS for 90 Active Omeprazole 20 MG TAKE 1 CAPSULE ONCE DAILY 30 MINUTES BEFORE MORNING MEAL for 90 Active Pen Tupman 32G X 4 MM Use 1 pen needle on insulin pen twice daily for 90 days Dx: E11.9 11/17/2023 Active Lisinopril 10 MG TAKE 1 TABLET ONCE DAILY for 90 Active Labetalol HCl 100 MG TAKE 1 TABLET TWICE A DAY for 90 Active Liothyronine Sodium 5 MCG 1 tablet on an empty stomach Orally Once a day Active Ketoconazole 2 % 1 application Externally Twice a day for 14 01/06/2024 Active Magnesium Oxide 400 MG 1 tablet as neede d BID Active glipiZIDE 10 MG TAKE 3 TABLETS ONCE DAILY for 90 days Active hydrALAZINE HCl 100 MG TAKE 1 TABLET 3 TIMES A DAY for 90 Active Insulin Syringe 30G X 5/16 0.5 ML Use 1 needle twice daily to administer insulin for 90 days Dx: E11.9 03/27/2024 Active Ferrous Sulfate 325 (65 Fe) MG 1 tablet Orally BID Active Furosemide 40 MG 1 tablets Orally bid for 30 days Active Blood Glucose Meter test blood meter for 30 days 12/30/2023 Active Cetirizine HCl 10 MG 1 tablet Orally Onc e a day Active DULoxetine HCl 30 mg TAKE 1 CAPSULE BY MOUTH EVERY DAY for 90 days Active Eliquis 5 MG Take 1 tablet Orally twice daily for 90 days Active Atorvastatin Calcium 20 MG TAKE 1 TABLET ONCE DAILY for 90 Active Bedside Commode -- Use As Directed bariatric dx S7200.2A q day for 365 days Active Social History Tobacco Use: Social History Observation Description Date Details (start date - stop date) Never Smoker NA - NA Tobacco Use/Smoking Question Answer Notes Patient is a nonsmoker Vital Signs Blood pressure systolic 124 mm Hg 01/03/20 25 Blood pressure diastolic 76 mm Hg 025 Encounters Encounter Location Date Provider Diagnosis [facility] [address] [place] [address] 01/02/2025 Hung Bundy 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 ; Diabetes mellitus with hyperglycemia E11.65 ; BP (high blood pressure) I10 ; Apnea, sleep G47.30 and Morbid obesity E66.01 Assessments Encounter Date Diagnosis (ICD Code) Assessment Notes Treatment Notes Treatment Clinical Notes Section Notes 01/02/2025 Acute combined systolic (congestive) and diastolic (congestive) heart failure (ICD-10 - I50.41) 01/02/2025 Diabetes mellitus with hyperglycemia (ICD-10 - E11.65) 01/02/2025 BP (high blood pressure) (ICD-10 - I10) 01/02/2025 Apnea, sleep (ICD-10 - G47.30) 01/02/2025 Morbid obesity (ICD-10 - E66.01) Plan Of Treatment Medication Medication Name Sig Start Date Stop Date Notes Luis Maglar KwikPen 100 UNIT/ML Inject 50 u nits Subcutaneous BID DX E11.9 for 90 days 10/10/2024 Next Appt Details Provider Name:Hung Bundy, 10:15:00 AM, [address] [place], [address], Progress Notes * Kamaljit BUENROSTRO JrDOB: (79 yo M)Acc No.[id number]:01/02/2025 Progress Note Patient: David DAWKINSKamaljit BARRAGAN Jr Provider: Flor Bundy ([facility])MD :1945 A ge:79 Y S ex:Male Date:01/02/2025 Address:[address] [place] [address] [place], [id number] Check In:10:18 AM ESTCheck O ut:10:41 AM EST Subjective: * Chief Complaints: * 3 MO F/Jesus concerns per patient * HPI: G eneral: dm - up in luc 200's hypertension - good conrrol on chol meds 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 * ROS: E ENT: hearing changes d enies. v isual changes d enies.?non-healing mouth sores d enies. s wollen glands or neck lumps d enies. h oarseness d enies. s ore throat d enies. d ifficulty swallowing d enies. n ose bleeds d enies. n domenica congestion d enies. e ar ache d enies. e ar discharge?denies. r inging in ears d enies. l ight sensitivity d enies. e ye pain d enies. b lurring d enies. e ye irritation d enies. d ouble vision d enies.?vision loss d enies. G eneral/Constitutional: Sweats: D enies. F atigue d enies. S leep problems d enies. A norexia d enies. M alaise d enies. W eight loss d enies.?Fatigue or Weakness d enies. F ever or Chills d enies. C ardiovascular: Shortness of Breath w/lying flat d enies. L ightheadedness/dizziness d enies. C hest tightness/ heavy pressure d enies. S welling of legs, ankles, or feet d enies. W aking up with shortness of breath d enies. C hest pain denies. P alpitations d enies. W eight gain d enies. R espiratory: Chronic or frequent cough d enies. C oughing up blood?denies. D ifficulty breathing d enies. P roductive cough d enies. S noring?denies. S hortness of breath that awakens from sleep (PND) d enies. C hest pain d enies. S putum production d enies. W heezing d enies. M usculoskeletal: Joint pain d enies. J oint Fluid d enies. B ack pain d enies. K nee pain d enies. N reva pain d enies. J oint Stiffness d enies. M uscle cramps d enies. W eakness of muscles d enies. A rthritis d enies. M uscle aches d enies. P ain in shoulder(s) d enies. S wollen joints d enies. 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 Modified On:10/07/2023/U Status:confirmed E11.65 Diabetes mellitus wi th hyperglycemia Modified On:10/07/2023/U Status:confirmed I10 BP (high blood press ure) Modified On:06/07/2023/U Status:confirmed G47.30 Apnea, sleep Modified On:10/07/2023 Status:confirmed N32.0 Bladder outlet obstr uction Modified On:12/28/2022 Status:confirmed S72.002A Fracture of unspecif ied part of neck of left femur, initial encounter for closed fracture Modified On:02/11/2023 Status:confirmed I48.91 Afib Modified On:04/23/2023 Status:confirmed E11.9 Diabetes mellitus Modified On:04/23/2023 Status:confirmed E83.42 Hypomagnesemia Modified On:10/07/2023 Status:confirmed E66.01 Morbid obesity Modified On:04/23/2023 Status:confirmed M19.071 Primary osteoarthrit is, right ankle and foot Modified On:06/03/2023 Status:confirmed B35.4 Tinea corporis Modified On:06/07/2023 Status:confirmed R60.9 Edema Modified On:06/07/2023 Status:confirmed E78.5 Hyperlipidemia Modified On:05/02/2024 Status:confirmed * Medical History: * Surgical History: L eft Knee replacement Hammertoe bilateral Hernia mesh x 2 Tonsils Left Abel and pin in Hip left wrist with pin Cyst removal * Hospitalization/Major Diagno stic Procedure: 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 M other: . B nitesher(s): alive, diagnosed with Unspecified heart disease. S isdoug(s): , CHF. D clemencia(s): alive. 2 brother(s) , 1 sister(s) . 3 daughter(s) - healthy. . * Social History: T obacco Use: T obacco Use/Smoking P atient is a n onsmoker * Medications: T akingAcetaminophen 500 MG Capsule 1 capsule as needed Orally every 6 hrs amLODIPine Besylate 10 MG Tablet 1 tablet Orally Once a day Aspirin 81(Aspirin) 81 MG Tablet Delayed Release 1 tablet Orally Once a day Atorvastatin Calcium 20 MG Tablet TAKE 1 TABLET ONCE DAILY Basaglar KwikPen(Insulin Glargine) 100 UNIT/ML Solution Pen-injector Inject 40 units Subcutaneous BID DX E11.9 Bedside Commode -- -- Use As Directed bariatric dx S7200.2A q day Blood Glucose Meter test blood meter Cetirizine HCl 10 MG Tablet 1 tablet Orally Once a day DULoxetine HCl 30 mg Capsule Delayed Release Particles TAKE 1 CAPSULE BY MOUTH EVERY DAY Eliquis(Apixaban) 5 MG Tablet Take 1 tablet Orally twice daily Ferrous Sulfate 325 (65 Fe) MG Tablet 1 tablet Orally BID Furosemide 40 MG Tablet 1 tablets Orally bid glipiZIDE 10 MG Tablet TAKE 3 TABLETS ONCE DAILY hydrALAZINE HCl 100 MG Tablet TAKE 1 TABLET 3 TIMES A DAY Insulin Syringe 30G X 5/16 0.5 ML Miscellaneous Use 1 needle twice daily to administer insulin Dx: E11.9Ketoconazole 2 % Cream 1 application Externally Twice a day Labetalol HCl 100 MG Tablet TAKE 1 TABLET TWICE A DAY Liothyronine Sodium 5 MCG Tablet 1 tablet on an empty stomach Orally Once a day Lisinopril 10 MG Tablet TAKE 1 TABLET ONCE DAILY Magnesium Oxide 400 MG Tablet 1 tablet as needed BID metFORMIN HCl 1000 MG Tablet TAKE 1 TABLET TWICE DAILY WITH MEALS Omeprazole 20 MG Capsule Delayed Release TAKE 1 CAPSULE ONCE DAILY 30 MINUTES BEFORE MORNING MEAL Pen Tupman 32G X 4 MM Miscellaneous Use 1 pen needle on insulin pen twice daily Dx: E11.9Potassium Chloride ER 10 MEQ Tablet Extended Release 1 tablet with food Orally three times daily Spironolactone 25 MG Tablet TAKE 1 TABLET ONCE DAILY Test Strips - - 1 test strip via meter once daily DX E11.9 , Notes to Pharmacist: Patient uses one touch ultra strips- thank you!Test Strips/Lancets - - test blood sugar daily Timolol Maleate 0.25 % Solution 1 gtt each eye bid Triamcinolone Acetonide 0.1 % Cream 1 application Externally Twice a day Vitamin D 25 MCG (1000 UT) Tablet 1 tablet Orally Once a day Taking Acetaminophen 500 MG Capsule 1 capsule as needed Orally every 6 hrs Taking amLODIPine Besylate 10 MG Tablet 1 tablet Orally Once a day Taking Aspirin 81(Aspirin) 81 MG Tablet Delayed Release 1 tablet Orally Once a day Taking Atorvastatin Calcium 20 MG Tablet TAKE 1 TABLET ONCE DAILY Taking Basaglar KwikPen(Insulin Glargine) 100 UNIT/ML Solution Pen-injector Inject 40 units Subcutaneous BID DX E11.9 Taking Bedside Commode -- -- Use As Directed bariatric dx S7200.2A q day Taking Blood Glucose Meter test blood meter Taking Cetirizine HCl 10 MG Tablet 1 tablet Orally Once a day Taking DULoxetine HCl 30 mg Capsule Delayed Release Particles TAKE 1 CAPSULE BY MOUTH EVERY DAY Taking Eliquis(Apixaban) 5 MG Tablet Take 1 tablet Orally twice daily Taking Ferrous Sulfate 325 (65 Fe) MG Tablet 1 tablet Orally BID Taking Furosemide 40 MG Tablet 1 tablets Orally bid Taking glipiZIDE 10 MG Tablet TAKE 3 TABLETS ONCE DAILY Taking hydrALAZINE HCl 100 MG Tablet TAKE 1 TABLET 3 TIMES A DAY Taking Insulin Syringe 30G X 5/16 0.5 ML Miscellaneous Use 1 needle twice daily to administer insulin Dx: E11.9Taking Ketoconazole 2 % Cream 1 application Externally Twice a day Taking Labetalol HCl 100 MG Tablet TAKE 1 TABLET TWICE A DAY Taking Liothyronine Sodium 5 MCG Tablet 1 tablet on an empty stomach Orally Once a day Taking Lisinopril 10 MG Tablet TAKE 1 TABLET ONCE DAILY Taking Magnesium Oxide 400 MG Tablet 1 tablet as needed BID Taking metFORMIN HCl 1000 MG Tablet TAKE 1 TABLET TWICE DAILY WITH MEALS Taking Omeprazole 20 MG Capsule Delayed Release TAKE 1 CAPSULE ONCE DAILY 30 MINUTES BEFORE MORNING MEAL Taking Pen Tupman 32G X 4 MM Miscellaneous Use 1 pen needle on insulin pen twice daily Dx: E11.9Taking Potassium Chloride ER 10 MEQ Tablet Extended Release 1 tablet with food Orally three times daily Taking Spironolactone 25 MG Tablet TAKE 1 TABLET ONCE DAILY Taking Test Strips - - 1 test strip via meter once daily DX E11.9 , Notes to Pharmacist: Patient uses one touch ultra strips- thank you!Taking Test Strips/Lancets - - test blood sugar daily Taking Timolol Maleate 0.25 % Solution 1 gtt each eye bid Taking Triamcinolone Acetonide 0.1 % Cream 1 application Externally Twice a day Taking Vitamin D 25 MCG (1000 UT) Tablet 1 tablet Orally Once a day DiscontinuedAmoxicillin-Pot Clavulanate 875-125 MG Tablet 1 tablet Orally every 12 hrs Cephalexin 500 MG Capsule 1 capsule Orally bid Medication List reviewed and reconciled with the patientDiscontinued Amoxicillin-Pot Clavulanate 875-125 MG Tablet 1 tablet Orally every 12 hrs Discontinued Cephalexin 500 MG Capsule 1 capsule Orally bid Medication List reviewed and reconciled with the patient * Allergies: S ulfa Antibiotics: rash - Allergyno[Allergies Verified] Objective: * Vitals: W t: Not Taken - Patient Unable, Ht: Not Taken - Patient Unable, BP:124/76mm Hg. * Examination: P hysical Exam: GENERAL: w ell developed, well nourished, in no acute distress. HEAD: n ormocephalic/atraumatic. EYES: p upils equal, round and reactive to light, conjunctivae and sclerae normal. EARS: n o deformity or lesion of external ear, canals and TM appear normal bilaterally, TM's intact, not inflamed with normal light reflex, hearing grossly normal to conversational speech. NOSE: n o deformity, discharge, inflammation, or lesions.? MOUTH: m ucous membranes moist, normal oropharynx and posterior pharynx without lesions or exudates, tongue normal, dentition normal. NECK: n reva supple, no masses or palpable cervical nodes, trachea midline, thyroid without nodules, masses, tenderness, or enlargement. CHEST: n o chest wall deformity, no chest wall tenderness.? LUNGS: n ormal respiratory effort and clear to auscultation, no wheezes, rales, or rhonchi, good air exchange. CARDIO: r egular rate and rhythm, normal S1 and S2, nor murmur, rub, or gallop. PULSES: n ormal capillary refill. ABDOMEN: s oft, non-distended, non-tender, no masses. MUSCULOSKELETAL: n o deformity or scoliosis noted, normal range of motion, joints normal, no erythema, edema, effusion, or ecchymosis. EXTREMITY: n o clubbing, cyanosis, edema, or deformity with normal ROM in both upper and lower bilateral extremities. NEUROLOGIC: g rossly normal. SKIN: n o rashes, ulcerations, or suspicious lesions. LYMPH NODES: n o cervical adenopathy, nodes normal. MENTAL STATUS: a lert and oriented x3, normal mood and affect. Assessment: * Assessment: 1. 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 D iabetes mellitus with hyperglycemia - E11.65 3 .?BP (high blood pressure) - I10 4 . A pnea, sleep - G47.30 5 . Morbid obesity - E66.01 Plan: * Treatment: * Procedure Codes: * * Sign off status: Completed Visit Status: C HK (Check Out) true * Provider: Flor Bundy ([facility])MD Date: 0 01/02/2025 Generated for Printi ng/Faxing/eTransmitting on: 0 04/05/2025 08:45 AM EDT History and Physical Notes * HPI (History of Present Illness) Category Sub-Category Detail Notes Category Not es General dm - up in luc 200's hypertension - good conrrol on chol meds penitentiary anticoagular doing luyphedema pumps Examination Category Sub-Category Detail Notes Category Not es Physical Exam GENERAL: well developed, well nourished, in no acute distress HEAD: normocephalic/atraum atic EYES: pupils equal, round and reactive to light, conjunctivae and sclerae normal EARS: no deformity or lesi on of external ear, canals and TM appear normal bilaterally, TM's intact, not inflamed with normal light reflex, hearing grossly normal to conversational speech NOSE: no deformity, discha rge, inflammation, or lesions MOUTH: mucous membranes mayra st, normal oropharynx and posterior pharynx without lesions or exudates, tongue normal, dentition normal NECK: neck supple, no mass es or palpable cervical nodes, trachea midline, thyroid without nodules, masses, tenderness, or enlargement CHEST: no chest wall deform ity, no chest wall tenderness LUNGS: normal respiratory e ffort and clear to auscultation, no wheezes, rales, or rhonchi, good air exchange CARDIO: regular rate and rhy thm, normal S1 and S2, nor murmur, rub, or gallop PULSES: normal capillary ref ill ABDOMEN: soft, non-distended, non-tender, no masses RECTAL: MUSCULOSKELETAL: no deformity or scol iosis noted, normal range of motion, joints normal, no erythema, edema, effusion, or ecchymosis EXTREMITY: no clubbing, cyanosi s, edema, or deformity with normal ROM in both upper and lower bilateral extremities NEUROLOGIC: grossly normal SKIN: no rashes, ulceratio ns, or suspicious lesions LYMPH NODES: no cervical adenopat hy, nodes normal MENTAL STATUS: alert and oriented x 3, normal mood and affect
--- OUTSIDE RECORDS SUMMARY | 2025-01-14 10:59 | XMS_ITS ---
Author Organization [facility] in [place] Address [address] [place] [address] Care Team Providers Care Planned Giving Officer Name Role Phone WaqarHung smith Primary Care Provider [phone] REASON FOR VISIT lab results Medications Medication SIG (Take, Route, Fr equency, Duration) Notes Start Date End Date Status Eliquis 2.5 MG Take 1 tablet Orally twice daily for 90 days Active Encounters Encounter Location Date Provider Diagnosis [facility] [place] [address] [place] [address] 01/14/2025 Hung Bundy Decreased renal function N28.9 Assessments Encounter Date Diagnosis (ICD Code) Assessment Notes Treatment Notes Treatment Clinical Notes Section Notes 01/14/2025 Decreased renal function (ICD-10 - N28.9) Plan Of Treatment Medication Medication Name Sig Start Date Stop Date Notes Eliquis 2.5 MG Take 1 tablet Orally twice daily for 90 days Pending Test Test Name Order Date BMP - Basic Metabolic Panel 01/14/2025 Next Appt Details Provider Name:Hung Bundy, 10:15:00 AM, [address] [place], [address], Progress Notes * Kamaljit BUENROSTRO JrDOB: (79 yo M)Acc No.[id number]:01/14/2025 Patient: David Kamaljit GAMINO Jr :1945 A ge:79 Y S ex:Male Address:[address] [place] [address] [place] [address] * Refills Refill Eliquis Tablet, 2.5 MG, Orally, 180, Take 1 tablet, twice daily, 90 days, Refills=3 Subjective: * Chief Complaints: * L ab results * Medical History: * Surgical History: * Hospitalization/Major Diagno stic Procedure: * Medications: Objective: * Vitals: * Physical Examination: Assessment: * Assessment: 1. D ecreased renal function - N28.9 (Primary) Plan: * Treatment: 2. O thers Refill Eliquis Tablet, 2.5 MG, Take 1 tablet, Orally, twice daily, 90 days, 180, Refills 3. ? * Procedure Codes: * true * Date: Generated for Anabella bean/Reyna/Tatyanasmitting on: 0 04/05/2025 08:45 AM EDT
--- OUTSIDE RECORDS SUMMARY | 2025-04-03 05:45 | XMS_ITS ---
Author Organization [facility] in [place] Address [address] [place] [address] Care Team Providers Care Extension Professor Name Role Phone Hung Bundy Primary Care Provider [phone] Allergies Allergen (clinical drug ingredient) Drug/Non Drug Allergy documented on EMR Reaction Allergy Type Onset Date Status Substance with sulfonamide structure and antibacterial mechanism of action (substance) Sulfa Antibiotics rash Drug Allergy Active REASON FOR VISIT 3 month f/u Medications Medication SIG (Take, Route, Frequency, Duration) Notes Start Date End Date Status Triamcinolone Acetonide 0.1 % 1 application Externally Twice a day for 30 days 01/06/2024 Active Timolol Maleate 0.25 % 1 gtt each eye bid Active Test Strips/Lancets - test blood sugar daily for 1 days 12/30/2023 Active Vitamin D 25 MCG (1000 UT) 1 tablet Orally Once a day Active DULoxetine HCl 60 MG 1 capsule Orally Once a day for 90 days Active Test Strips - 1 test strip via meter once daily DX E11.9 for 90 days Patient uses one touch ultra strips- thank you! 09/21/2023 Active Spironolactone 25 MG TAKE 1 TABLET ONCE DAILY for 90 Active Potassium Chloride ER 10 MEQ 1 tablet with food Orally three times daily for 30 days 03/26/2024 Active Pen Mcnabb 32G X 4 MM Use 1 pen needle on insulin pen twice daily for 90 days Dx: E11.9 11/17/2023 Active Omeprazole 20 MG TAKE 1 CAPSULE ONCE DAILY 30 MINUTES BEFORE MORNING MEAL for 90 Active Lisinopril 10 MG TAKE 1 TABLET ONCE DAILY for 90 Active Liothyronine Sodium 5 MCG 1 tablet on an empty stomach Orally Once a day Active Labetalol HCl 100 MG TAKE 1 TABLET TWICE A DAY for 90 Active metFORMIN HCl 1000 MG TAKE 1 TABLET TWIC E DAILY WITH MEALS for 90 Active Magnesium Oxide 400 MG 1 tablet as neede d BID Active Ketoconazole 2 % 1 application Externally Twice a day for 14 01/06/2024 Active Insulin Syringe 30G X 16 0.5 ML Use 1 needle twice daily to administer insulin for 90 days Dx: E11.9 03/27/2024 Active hydrALAZINE HCl 100 MG TAKE 1 TABLET 3 TIMES A DAY for 90 Active glipiZIDE 10 MG TAKE 3 TABLETS ONCE DAILY for 90 days Active Furosemide 40 MG 1 tablets Orally bid for 30 days Active Cetirizine HCl 10 MG 1 tablet Orally Onc e a day Active Blood Glucose Meter test blood meter for 30 days 12/30/2023 Active Bedside Commode -- Use As Directed bariatric dx S7200.2A q day for 365 days Active Ferrous Sulfate 325 (65 Fe) MG 1 tablet Orally BID Active Eliquis 2.5 MG Take 1 tablet Orally twice daily for 90 days Active Basaglar KwikPen 100 UNIT/ML Inject 50 units Subcutaneous BID DX E11.9 for 90 days 10/10/2024 Active Atorvastatin Calcium 20 MG TAKE 1 TABLET ONCE DAILY for 90 Active Aspirin 81 81 MG 1 tablet Orally Once a day Active amLODIPine Besylate 10 MG 1 tablet Orally Once a day for 90 days Active Acetaminophen 500 MG 1 capsule as needed Orally every 6 hrs Active Social History Tobacco Use: Social History Observation Description Date Details (start date - stop date) Never Smoker NA - NA Tobacco Use/Smoking Question Answer Notes Patient is a nonsmoker Vital Signs Blood pressure systolic 142 mm Hg 04/03/20 25 Blood pressure diastolic 82 mm Hg 025 Encounters Encounter Location Date Provider Diagnosis [facility] [address] [place] [address] 04/03/2025 Hung Bundy 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 ; Diabetes mellitus with hyperglycemia E11.65 ; Apnea, sleep G47.30 and Afib I48.91 Assessments Encounter Date Diagnosis (ICD Code) Assessment Notes Treatment Notes Treatment Clinical Notes Section Notes 04/03/2025 Acute combined systolic (congestive) and diastolic (congestive) heart failure (ICD-10 - I50.41) 04/03/2025 Diabetes mellitus with hyperglycemia (ICD-10 - E11.65) 04/03/2025 Apnea, sleep (ICD-10 - G47.30) 04/03/2025 Afib (ICD-10 - I48.91) Plan Of Treatment Medication Medication Name Sig Start Date Stop Date Notes DULoxetine HCl 60 MG 1 capsule Orally On ce a day for 90 days Pending Test Test Name Order Date HEMOGLOBIN A1C (GLYCO) 04/03/2025 IRON, TOTAL 04/03/2025 BNP 04/03/2025 THYROID PANEL (T4/TSH/FREE T3) CMP (COMP MET GILL) w/eGFR CKD-EPI 2024 CBC WITH DIFF 04/03/2025 Next Appt Details Provider Name:Hung Bundy, 10:15:00 AM, [address] [place], [address], Progress Notes * Kamaljit BUENROSTRO JrDOB: (79 yo M)Acc No.[id number]:04/03/2025 Progress Note Patient: David Kamaljit GAMINO Jr Provider: Flor Bundy ([facility])MD :1945 A ge:79 Y S ex:Male Date:04/03/2025 Address:[address] [place], [place] [id number] Check In:09:52 AM ESTCheck O ut:10:41 AM EST Subjective: * Chief Complaints: * 3 month f/u * HPI: G eneral: DM - not checking sugars - has stuff HTN -0stable on meds atril fib on meds - fdc anticoagulants takignthyroid meds. * ROS: E ENT: hearing changes d [...] (congestive) and diastolic (congestive) heart failure Modified On:10/07/2023W/U Status:confirmed E11.65 Diabetes mellitus wi th hyperglycemia Modified On:10/07/2023 Status:confirmed I10 BP (high blood press ure) Modified On:06/07/2023 Status:confirmed G47.30 Apnea, sleep Modified On:10/07/2023 Status:confirmed [...] F ather: . M other: . B rother(s): alive, diagnosed with Unspecified heart disease. S ister(s): , CHF. D clemencia(s): alive. 2 brother(s) [...] KwikPen(Insulin Glargine) 100 UNIT/ML Solution Pen-injector Inject 50 units Subcutaneous BID DX E11.9 Bedside Commode -- -- Use As Directed bariatric dx S7200.2A q day Blood Glucose Meter test blood meter Cetirizine HCl 10 MG Tablet 1 tablet Orally Once a day DULoxetine HCl 30 mg Capsule Delayed Release Particles TAKE 1 CAPSULE BY MOUTH EVERY DAY Eliquis(Apixaban) 2.5 MG Tablet Take 1 tablet Orally twice [...] DAILY 30 MINUTES BEFORE MORNING MEAL Pen Mcnabb 32G X 4 MM Miscellaneous Use 1 [...] Tablet 1 tablet Orally Once a day Medication List reviewed and reconciled with the patientTaking Acetaminophen 500 MG Capsule 1 capsule as needed Orally every 6 hrs Taking amLODIPine Besylate 10 MG Tablet 1 tablet Orally Once a day Taking Aspirin 81(Aspirin) 81 MG Tablet Delayed Release 1 tablet Orally Once a day Taking Atorvastatin Calcium 20 MG Tablet TAKE 1 TABLET ONCE DAILY Taking Basaglar KwikPen(Insulin Glargine) 100 UNIT/ML Solution Pen-injector Inject 50 units Subcutaneous BID DX E11.9 Taking Bedside Commode -- -- Use As Directed bariatric dx S7200.2A q day Taking Blood Glucose Meter test blood meter Taking Cetirizine HCl 10 MG Tablet 1 tablet Orally Once a day Taking DULoxetine HCl 30 mg Capsule Delayed Release Particles TAKE 1 CAPSULE BY MOUTH EVERY DAY Taking Eliquis(Apixaban) 2.5 MG Tablet Take 1 tablet Orally twice [...] 30 MINUTES BEFORE MORNING MEAL Taking Pen Mcnabb 32G X 4 MM Miscellaneous Use 1 [...] Tablet 1 tablet Orally Once a day Medication List reviewed and reconciled with the patient * Allergies: S ulfa Antibiotics: rash - Allergyno[Allergies Verified] Objective: * Vitals: W t: Not Taken - Patient Unable, Ht: Not Taken - Patient Unable, BP:142/82mm Hg. * Examination: P hysical Exam: GENERAL: [...] iabetes mellitus with hyperglycemia - E11.65 3 .?Apnea, sleep - G47.30 4 . A fib - I48.91 Plan: * Treatment: 2. D iabetes mellitus with hyperglycemia L AB: HEMOGLOBIN A1C (GLYCO) L AB: IRON, TOTAL L AB: THYROID PANEL (T4/TSH/FREE T3) L AB: CMP (COMP MET GILL) w/eGFR CKD-EPI L AB: CBC WITH DIFF 3. A pnea, sleep L AB: HEMOGLOBIN A1C (GLYCO) L AB: IRON, TOTAL L AB: THYROID PANEL (T4/TSH/FREE T3) L AB: CMP (COMP MET GILL) w/eGFR CKD-EPI L AB: CBC WITH DIFF 4. 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
--- OUTSIDE RECORDS SUMMARY | 2025-04-05 08:44 | XMS_ITS | Encounter Summary ---
Author Organization [facility] Address [address] [facility] [place] [address] Care Team Providers Care Diamond Picker Name Role Phone Unavailable Primary Care Provider Unavailabl e Encounter Details Date Type Department Care Team (Late st Contact Info) Description 05/17/2023 Abstract [facility] [address] [facility] [address] [place] [address] Mariela Farrell MD [address] [place] [facility] [address] [place], [place] [id number] Social History Tobacco Use Types Packs/Day Years Used Date Smoking Tobacco: Never Assessed Sex and Gender Information Value Date Recorded Sex Assigned at Not on file Legal Sex Male 6:50 PM EDT Gender Identity Not on file Sexual Orientation Not on file documented as of this encounter Plan of Treatment Not on file documented as of this encounter Visit Diagnoses Not on filedocumented in this encounter
--- OUTSIDE RECORDS SUMMARY | 2025-04-05 08:44 | XMS_ITS | Clinical Summary ---
Author Organization [facility] Address [address] [place] [address] Care Team Providers Care Research Associate Professor Name Role Phone Ernesto Bundy MD Primary Care Provider [phone] Allergies Active Allergy Reactions Criticality Noted Date Comments Sulfa (Sulfonamide Antibiotics) Rash Low 11/2014 Medications amLODIPine (Norvasc) 10 mg tablet amlodipine 10 mg tablet Take 1 tablet every day by oral route for 90 days. 04/11/20 18 Active hydrALAZINE (Apresoline) 100 mg tablet hydralazine 100 mg tablet Take 1 tablet 3 times a day by oral route for 90 days. Active lansoprazole (Prevacid) [address] capsule lansoprazole 30 mg capsule,delayed release Take 1 capsule every day by oral route for 90 days. Active labetalol (Normodyne) 100 mg tablet Take 100 mg by mouth twice a day. Active metFORMIN (Glucophage) 1,000 mg tablet metformin 1,000 mg tablet Take 1 tablet twice a day by oral route for 90 days. Active atorvastatin (Lipitor) 20 mg tablet atorvastatin 20 mg tablet Take 1 tablet every day by oral route for 90 days. Active glipiZIDE (Glucotrol) 10 mg tablet in the morning. Acti ve DULoxetine (Cymbalta) [address] capsule duloxetine 30 mg capsule,delayed release Take 1 capsule every day by oral route for 90 days. Active cetirizine (ZyrTEC) 10 mg tablet 1 (one) time each day at the same time. Active potassium chloride CR (Klor-Con) 10 mEq ER tablet Take 10 mEq by mouth in the morning. Active multivitamin capsule Take 1 capsule by mouth in the morning. Active ferrous sulfate 325 (65 Fe) MG tablet in the morning. 01/02/20 19 Active cholecalciferol (Vitamin D-3) 25 MCG (1000 UT) capsule 1 capsule in the morning. Active pregabalin (Lyrica) 75 mg capsule Take 75 mg by mouth 3 times a day. Active Lantus Solostar U-100 Insulin 100 unit/mL (3 mL) pen INJECT TEN UNITS SUBCUTANEOUSLY TWICE DAILY 05/25/20 Active lisinopril 20 mg tablet Take 20 mg by mouth in the morning. 05/26/20 Active spironolactone (Aldactone) 25 mg tablet Take 25 mg by mouth in the morning. 06/24/20 23 Active furosemide (Lasix) 40 mg tabletIndication s:Acute on chronic diastolic heart failure (CMS/HCC) Take 1 tablet (40 mg) by mouth two times daily. Take 60mg in the AM and 40mg in the PM 270 tablet 3 07/17/20 24 025 Active omeprazole (PriLOSEC) [address] capsule Take 20 mg by mouth. Active albuterol 90 mcg/actuation inhaler Inhale 1 puff every 6 (six) hours if needed. 09/23/19 25 Active apixaban (Eliquis) 2.5 mg tabletIndication s:Persistent atrial fibrillation (CMS/HCC) Take 1 tablet (2.5 mg) by mouth two times daily. 180 tablet 3 01/15/20 25 026 Active rivaroxaban (Xarelto) 15 mg tabletIndication s:Paroxysmal atrial fibrillation (CMS/HCC) Take 1 tablet (15 mg) by mouth daily with evening meal. Take with food. 90 tablet 3 01/18/20 25 Active Active Problems Problem Noted Date Diagnosed Date Benign hypertensive heart disease with heart tato lure 07/20/2023 Mixed hyperlipidemia 07/20/2023 Closed fracture of distal en d of left radius with routine healing 03/03/2023 06/14/2023 Cellulitis of unspecified part of limb 10/19/2023 Encounter for other specified surgical aftercare 02/11/2023 10/19/2023 Gastro-esophageal reflux disease without esophag itis 02/11/2023 10/19/2023 Malignant neoplasm of unspec ified part of unspecified bronchus or lung 02/11/2023 10/19/2023 Arthritis 02/11/2023 Lumbar spondylosis 02/11/2023 Closed fracture of left hip 02/06/2023 Diastolic heart failure 02/23/2022 Hypertensive disorder 02/23/2022 Disorder of sacrum 05/28/2020 Secondary malignant neoplasm of right lung 05/21 Spinal stenosis of lumbar re gion without neurogenic claudication 05/02/2019 Overview (09/22/2022): Added automatically from request for surgery [id number] Lumbosacral spondylosis without myelopathy 01/31 Essential (primary) hypertension 10/19/2018 Unspecified asthma, uncomplicated 10/19/2018 Sepsis due to methicillin resistant Staphylococc us aureus 10/19/2018 Other pneumonia, unspecified organism 10/19/2018 Muscle weakness (generalized) 10/19/2018 Morbid (severe) obesity due to excess calories 0 10/19/2018 Major depressive disorder, recurrent, unspecifie d 10/19/2018 Difficulty in walking, not elsewhere classified 10/19/2018 Chronic pain syndrome 10/19/2018 Chronic kidney disease, stage 2 (mild) 9 Cellulitis of left lower limb 10/19/2018 Cellulitis of right lower limb 10/19/2018 Anemia, unspecified 10/19/2018 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 Other specified diabetes jovanni litus with diabetic chronic kidney disease 02/13/2018 Glaucoma 02/13/2018 Cholelithiasis without obstruction 01/25/2018 Mass of upper limb 01/25/2018 Right inguinal hernia 01/25/2018 Atrial fibrillation 05/05/2017 Sleep apnea 12/22/2012 10/19/2023 Type 2 diabetes mellitus without complication 10/19/2023 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 Encounters Date Type Department Care Team Description 01/17/2025 Orders Only [address] [address] Krystal Rosado MA Paroxysmal atrial fibrillation (CMS/HCC) 01/14/2025 9:00 AM EDT Office Visit [address] [address] Saul Gonzalez MD Chronic diastolic congestive heart failure (CMS/HCC) (Primary Dx); Persistent atrial fibrillation (CMS/HCC); Primary hypertension; Mixed hyperlipidemia; Stage 3a chronic kidney disease (CMS/HCC) from Last 3 Months Family History Medical History Relation Name Comments Cancer Father Heart failure Mother Stroke Mother Heart attack Paternal Grandfather Relation Name Status Comments Father Mother Paternal Grandfather Social History Tobacco Use Types Packs/Day Years Used Date Smoking Tobacco: Former Cigarettes Smokeless Tobacco: Never Tobacco Cessation:Counseling Given: Not Answered Alcohol Use Standard Drinks/Week Comments Not Currently 0 (1 standard drink = 0.6 oz pur e alcohol) [place] Safety & Environment Answer Date Rec orded Fear of Current or Ex-Partner Not on file Emotionally Abused Not on file 11/03/2023 Physically Abused Not on file 11/03/2023 Sexually Abused Not on file 11/03/2023 Physically or Sexually Abused Not on file Sex and Gender Information Value Date Recorded Sex Assigned at Male 01/11/2025 8:32 AM EDT Legal Sex Male 10:38 PM EDT Gender Identity Male 01/11/2025 8:32 AM EDT Sexual Orientation Heterosexual or Straight 10/2024 8:32 AM EDT Last Filed Vital Signs Vital Sign Reading Time Taken Comments Blood Pressure 124/71 01/14/2025 8:57 AM EDT Pulse 85 01/14/2025 8:57 AM EDT Temperature 36.3 C (97.3 F) 10/11/2022 11:51 AM EST Respiratory Rate 15 04/27/2024 9:56 AM EDT Oxygen Saturation 97% 01/14/2025 8:57 AM EDT Inhaled Oxygen Concentration - - Weight 163 kg (360 lb) 01/14/2025 8:57 AM EDT Height 180.3 cm (5' 11 ) 01/14/2025 8:57 AM EDT Body Mass Index 50.21 01/14/2025 8:57 AM EDT Plan of Treatment Health Maintenance Due Date Last Done Comments Diabetes: Hemoglobin A1C 1945 Medicare Annual Wellness (AWV) 1945 Diabetes: Retinopathy Screening 1954 Depression Screening 1956 Adult Tetanus 1966 Zoster Vaccines (1 of 2) 1994 Fall Risk Screening 2009 COVID-19 Vaccine ( season) 2024 11/17/2023, 01/16/2023, 01/16/2023, Additional history exists Influenza Vaccine (#1) 2025 2, 06/13/2020, 06/16/2017, Additional history exists Pneumococcal Vaccine: 50+ Years Completed 12/15/2017, 11/15/2016 HIB Vaccines Aged Out No longer eligi ble based on patient's age to complete this topic HPV Vaccines Aged Out No longer eligi ble based on patient's age to complete this topic IPV Vaccines Aged Out No longer eligi ble based on patient's age to complete this topic Meningococcal B Vaccine Aged Out No l onger eligible based on patient's age to complete this topic Meningococcal Vaccine Aged Out No maxwell doug eligible based on patient's age to complete this topic Rotavirus Vaccines Aged Out No longer eligible based on patient's age to complete this topic Procedures Procedure Name Priority Date/Time Associated Diagnosis Comments ECG 12 LEAD UNIT PERFORMED Routine 01/14/2025 9:30 AM EDT Persistent atrial fibrillation (CMS/HCC) from Last 3 Months Results * ECG 12 lead unit performed (01/14/2025 9:30 AM EDT) Saul Gonzalez MD ECG ORDERABLES Final Result from Last 3 Months Insurance [facility] Care Teams Research Associate Professor Relationship Specialty Start Date End Date Ernesto Bundy MD [address] [facility] [place] [address] PCP - General 09/21/22
--- OUTSIDE RECORDS SUMMARY | 2025-04-05 08:44 | XMS_ITS | Encounter Summary ---
Author Organization [facility] Address [address] [facility] [place] [address] Care Team Providers Care Triple Valve Tester Name Role Phone Unavailable Primary Care Provider Unavailabl e Encounter Details Date Type Department Care Team (Late st Contact Info) Description 06/17/2023 Abstract [facility] [address] [facility] [address] [place] [phone] Mariela Farrell MD [address] [facility] [address] [place], [place] [id number] Social History Tobacco Use Types Packs/Day Years [...]
--- OUTSIDE RECORDS SUMMARY | 2025-04-05 08:44 | XMS_ITS | Encounter Summary ---
Author Organization [facility] Address [address] [place] [address] Care Team Providers Care Felt Puller Name Role Phone Unavailable Primary Care Provider Unavailabl e Encounter Details Date Type Department Care Team (Late st Contact Info) Description 2023 Abstract [facility] [address] [facility] [address] [place] [phone] Unallocated, [facility] Provider, [address] [place] [address] Social History Tobacco Use Types Packs/Day Years [...]
--- OUTSIDE RECORDS SUMMARY | 2025-04-05 08:44 | XMS_ITS | Encounter Summary ---
Author Organization [facility] Address [address] [place] [address] Care Team Providers Care Mutuel Machine Operator Name Role Phone Unavailable Primary Care Provider Unavailabl e Encounter Details Date Type Department Care Team (Late st Contact Info) Description 10/05/2023 Abstract [facility] [address] [facility] [address] [place] [phone] Unallocated, [facility] Provider, [address] [place] [address] Social History Tobacco Use Types Packs/Day Years [...]
--- OUTSIDE RECORDS SUMMARY | 2025-04-05 08:45 | XMS_ITS | Encounter Summary ---
Author Organization [facility] Address [id number] [address] [place] [address] Care Team Providers Care Accounts Payable Administrator Name Role Phone Ernesto Bundy MD Primary Care Provider +-7 Encounter Details Date Type Department Care Team (Late st Contact Info) Description 06/07/2023 Orders Only [facility] [address] [place] [phone] Vero Foote RN Social History Tobacco Use Types Packs/Day Years Used Date Smoking Tobacco: Former Cigarettes 1.5 25 Smokeless Tobacco: Never Alcohol Use Standard Drinks/Week Comments Yes 0 (1 standard drink = 0.6 oz pur e alcohol) Housing Instability Answer Date Recorde d Are you worried or concerned that in the next two months you may not have stable housing that you own, rent or stay in as a part of a household? No 02/11/2023 Childcare Answer Date Recorded Childcare Unknown 02/08/2019 Employment Answer Date Recorded Employment Unknown 02/08/2019 Purpose - Life Answer Date Recorded Purpose and direction in life Unknown Sex and Gender Information Value Date Recorded Sex Assigned at Male 11/02/2020 10:20 PM EST Legal Sex Male 11:38 AM EDT Gender Identity Male 11/02/2020 10:20 PM EST Sexual Orientation Straight 11/02/2020 10 :20 PM EST documented as of this encounter Plan of Treatment Not on file documented as of this encounter Goals Goal Patient Goal Type Associated Problems Recent Progress Patient-Stated? Author <enter goal here> General Yes Alta Callejas RN Note: Evaluation of progress towards goal: patient plans for a safe discharge. documented as of this encounter Visit Diagnoses Not on filedocumented in this encounter Care Teams Accounts Payable Administrator Relationship Specialty Start Date End Date Ernesto Bundy MD PCP - General 05/29/18 documented as of this encounter
--- OUTSIDE RECORDS SUMMARY | 2025-04-05 08:45 | XMS_ITS | Clinical Summary ---
Author Organization [facility] Address [address] [place] [address] Care Team Providers Care Brake Drum Lathe Operator Name Role Phone Unavailable Primary Care Provider Unavailabl e Medications lisinopril 20 MG tabletIndication s:Essential hypertension TAKE 1 TABLET BY MOUTH EVERY DAY 100 tablet 3 08/12/20 23 Active Lantus SoloStar 100 UNIT/ML penIndications:T ype 2 diabetes mellitus without complication, with long-term current use of insulin (HCC) INJECT TEN UNITS SUBCUTANEOUSLY TWICE DAILY 15 mL 10/17/19 24 Active atorvastatin (Lipitor) 20 MG tabletIndication s:Essential hypertension TAKE 1 TABLET BY MOUTH AT BEDTIME 30 tablet 10/24/19 24 Active hydrALAZINE (Apresoline) 100 MG tabletIndication s:Essential hypertension TAKE 1 TABLET BY MOUTH THREE TIMES DAILY *hold if systolic blood pressure is less than 100 or if heart rate is less than 60* 90 tablet 10/24/19 24 Active Active Problems Problem Noted Date Diagnosed Date Other chronic pain 08/12/2023 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 Asthma without status asthmaticus 12/22/2012 Essential hypertension 12/22/2012 Glaucoma 12/22/2012 Sleep apnea 12/22/2012 Type 2 diabetes mellitus without complication Social History Tobacco Use Types Packs/Day Years Used Date Smoking Tobacco: Never Assessed Sex and Gender Information Value Date Recorded Sex Assigned at Not on file Legal Sex Male 6:50 PM EDT Gender Identity Not on file Sexual Orientation Not on file Last Filed Vital Signs Vital Sign Reading Time Taken Comments Blood Pressure 151/78 12/28/2018 12:00 PM EDT Pulse - - Temperature - - Respiratory Rate - - Oxygen Saturation - - Inhaled Oxygen Concentration - - Weight 161 kg (356 lb) 12/28/2018 12:00 PM EDT Height 180.3 cm (5' 11 ) 12/28/2018 12:00 PM EDT Body Mass Index 49.65 12/28/2018 12:00 PM EDT Plan of Treatment Not on file Insurance [facility]
--- OUTSIDE RECORDS SUMMARY | 2025-04-05 08:45 | XMS_ITS | Encounter Summary ---
Author Organization [facility] Address [id number] [address] [place] [address] Care Team Providers Care Physical Therapy Teacher Name Role Phone Ernesto Bundy MD Primary Care Provider +-[phone] Encounter Details Date Type Department Care Team (Late st Contact Info) Description 03/28/2023 Orders Only [facility] [address] [place] [phone] Transcribe, Orders Support User Pain (Primary Dx) Social History Tobacco Use Types Packs/Day Years [...] safe discharge. documented as of this encounter Results * X-ray hip left 2-3 views with or without pelvis (03/18/2023 11:55 AM EDT) us Scanning Provider External IMG DIAGNOSTIC IMAGIN G ORDERABLES Final Result * X-ray wrist left 2 views (03/18/2023 11:40 AM EDT) us Scanning Provider External IMG DIAGNOSTIC IMAGIN G ORDERABLES Final Result documented in this encounter Visit Diagnoses Diagnosis Pain- Primary Generalized pain documented in this encounter Care Teams Physical Therapy Teacher Relationship Specialty Start Date End Date Ernesto Bundy MD PCP - General 05/29/18 documented as of this encounter
--- OUTSIDE RECORDS SUMMARY | 2025-04-05 08:45 | XMS_ITS | Encounter Summary ---
Author Organization [facility] Address [id number] [address] [place] [address] Care Team Providers Care Drop Wire Stringer Name Role Phone Ernesto Bundy MD Primary Care Provider +-6 Encounter Details Date Type Department Care Team (Late st Contact Info) Description 03/18/2023 Orders Only [facility] [address] [place] [phone] Vero Foote RN Social History Tobacco Use [...] on filedocumented in this encounter Care Teams Drop Wire Stringer Relationship Specialty Start Date End Date Ernesto Bundy MD PCP - General 05/29/18 documented as of this encounter
--- OUTSIDE RECORDS SUMMARY | 2025-04-05 08:45 | XMS_ITS | Clinical Summary ---
Author Organization [facility] Address [id number] [address] [place] [address] Care Team Providers Care Communication Studies Professor Name Role Phone Ernesto Bundy MD Primary Care Provider +-6 Allergies Active Allergy Reactions Criticality Noted Date Comments Sulfa (Sulfonamide Antibiotics) 05/13 Medications amLODIPine (NORVASC) 10 mg tablet Take 1 tablet (10 mg total) by mouth in the morning. 8 Active fosinopril (MONOPRIL) 40 MG tablet Take 1 tablet (40 mg total) by mouth in the morning. Active hydrALAZINE (APRESOLINE) 100 mg tablet Take 1 tablet (100 mg total) by mouth 3 (three) times a day. Active cetirizine (ZyrTEC) 10 mg tablet Take 1 tablet (10 mg total) by mouth in the morning. Active lansoprazole (PREVACID) 30 mg capsule Take 1 capsule (30 mg total) by mouth in the morning. Active apixaban (ELIQUIS) 5 mg tablet Take 1 tablet (5 mg total) by mouth in the morning and 1 tablet (5 mg total) before bedtime. Active labetalol (NORMODYNE) 100 mg tablet Take 1 tablet (100 mg total) by mouth in the morning and 1 tablet (100 mg total) before bedtime. Active metFORMIN (GLUCOPHAGE) 1000 mg tablet Take 1 tablet (1,000 mg total) by mouth in the morning and 1 tablet (1,000 mg total) in the evening. Take with meals. Active atorvastatin (LIPITOR) 20 mg tablet Take 1 tablet (20 mg total) by mouth in the morning. Active timolol (TIMOPTIC-XE) 0.5 % ophthalmic gel-forming Administer 1 drop to both eyes every morning before breakfast. Active multivitamin capsule Take 1 capsule by mouth in the morning. Active furosemide (LASIX) 20 mg tablet Take 2 tablets (40 mg total) by mouth 2 (two) times a day. 40mg BID Active GLIPIZIDE ORAL Take 3 tablets by mouth in the morning. 30mg . Active DULoxetine (CYMBALTA) 30 mg capsule Take 1 capsule (30 mg total) by mouth in the morning. Active spironolactone (ALDACTONE) 25 mg tablet Take 1 tablet (25 mg total) by mouth in the morning and 1 tablet (25 mg total) before bedtime. Active aspirin 81 mg Take 1 tablet (81 mg total) by mouth in the morning. Active dapagliflozin (FARXIGA) 5 mg tablet Take 1 tablet (5 mg total) by mouth in the morning. Active ferrous sulfate 325 (65 FE) mg tablet Take 1 tablet (325 mg total) by mouth in the morning. 0 9 Active potassium chloride (MICRO-K) 10 MEQ CR capsule take 1 capsule by mouth three times a day BEFORE MEALS 1 9 Active pregabalin (LYRICA) 75 mg capsule Take 1 capsule (75 mg total) by mouth 3 (three) times a day. Active cholecalcifero l, vitamin D3, 2,000 units capsule Take 1 capsule (2,000 Units total) by mouth in the morning. Active empagliflozin (JARDIANCE) 10 mg tablet tablet Take 1 tablet (10 mg total) by mouth in the morning. Active naloxone (NARCAN) 4 mg/actuation spray,non-aero london nasal spray Administer 1 spray (4 mg total) into alternating nostrils as needed for opioid reversal. 1 each 3 Active oxyCODONE-acet aminophen (PERCOCET) 5-325 mg per tablet Take 1 tablet by mouth every 4 (four) hours as needed for pain. Active pioglitazone (ACTOS) 30 mg tablet Take 1 tablet (30 mg total) by mouth in the morning. Active ketoconazole (NIZORAL) 2 % cream Apply topically. 2 Active mirabegron (MYRBETRIQ) 25 mg tablet extended release 24 hr 0 Refill(s) 3 Active ONETOUCH ULTRA TEST strip USE 1 TEST STRIP TO TEST BLOOD SUGAR EVERY MORNING 3 Active LANTUS SOLOSTAR U-100 INSULIN 100 unit/mL (3 mL) insulin pen INJECT TEN UNITS SUBCUTANEOUSLY TWICE DAILY 3 Active UNIFINE PENTIPS PLUS 32 gauge x 32 needle USE DIRECTED TWICE DAILY 3 Active Active Problems Problem Noted Date Diagnosed Date Closed fracture of distal en d of left radius with routine healing 03/03/2023 Closed fracture of left hip, initial encounter 0 02/06/2023 Disorder of sacrum 05/28/2020 Spinal stenosis of lumbar re gion without neurogenic claudication 05/02/2019 Lumbosacral spondylosis without myelopathy 01/31 Lumbar spondylosis 01/08/2019 Overview (01/08/2019): Added automatically from request for surgery [id number] Family History Medical History Relation Name Comments Hypertension Brother Cancer Father Lung cancer Father Breast cancer Mother Cancer Mother Hypertension Mother Stroke Mother Diabetes Sister Hypertension Sister Relation Name Status Comments Brother Alive Father Mother Sister Social History Tobacco Use Types Packs/Day Years Used Date Smoking Tobacco: Former Cigarettes 1.5 25 Smokeless Tobacco: Never Tobacco Cessation:Counseling Given: Not Answered Alcohol Use Standard Drinks/Week Comments Yes 0 [...] Employment Answer Date Recorded Employment Unknown 02/08/2019 Hunger Screening Answer Date Recorded Within the past 12 months we worried whether our food would run out before we got money to buy more. Never True 06/17/2023 Within the past 12 months th e food we bought just didn't last and we didn't have money to get more. Never True 06/17/2023 Purpose - Life Answer Date Recorded Purpose and direction in life Unknown Sex and Gender Information Value Date Recorded Sex Assigned at Male 11/02/2020 10:20 PM EST Legal Sex Male 11:38 AM EDT Gender Identity Male 11/02/2020 10:20 PM EST Sexual Orientation Straight 11/02/2020 10 :20 PM EST Last Filed Vital Signs Vital Sign Reading Time Taken Comments Blood Pressure 132/55 03/03/2023 11:10 AM EDT today at 10:53 Pulse 83 02/11/2023 7:04 AM EDT Temperature 36.1 C (96.9 F) 06/17/2023 10:46 AM EDT Respiratory Rate 18 03/03/2023 11:1 0 AM EDT Oxygen Saturation 92% 02/11/2023 7:0 4 AM EDT Inhaled Oxygen Concentration - - Weight 162.4 kg (358 lb) 06/17/2023 10: 46 AM EDT Height 180.3 cm (5' 11 ) 06/17/2023 10: 46 AM EDT Body Mass Index 49.93 06/17/2023 10:46 AM EDT Plan of Treatment Health Maintenance Due Date Last Done Comments Depression Screening 1957 DTaP,Tdap and Td Vaccines (1 - Tdap) 1963 Zoster (Shingles) Vaccine (1 of 2) 1994 Abdominal Aortic Aneurysm (A AA) Screen 2009 Fall Risk Screening 2009 COVID-19 Vaccine (2023-2 5 season) 2024 01/16/2023, 06/19/2022, 08/18/2021, Additional history exists Tobacco Screening 06/17/2024 06/17/2023 Influenza Vaccine 05/13/2025 07/16/2022, , 06/16/2017, Additional history exists Goals Goal Patient Goal Type Associated Problems Recent Progress Patient-Stated? Author <enter goal here> General Yes Alta Callejas, RN Note: Evaluation of progress towards goal: patient plans for a safe discharge. Medical Devices Implanted Type Area Soil Fertility Specialist Device Identifier Shelf Expiration Date Model / Serial / Lot Nail Im 18cm 11.5mm 125d Shrt Rtrgd Trgn Intertan Ti - [id number] Implanted:Qt y: 1 on 02/07/2023 by Cameron Trejo MD at [facility] Nail Left: Femur [employer] 03/24/2032 [id number] / / [id number] Kit Scr 95mm 11.5mm 7mm Intertan Troch Lg Cmpr Intgr Intlk - [id number] Implanted:Qt y: 1 on 02/07/2023 by Cameron Trejo MD at [facility] Orthopedic Implant Left: Femur [employer] 07/26/2032 [id number] / / [id number] Plate Bn 55mm Std 7 Hle/Hd 3 Hle/Shft 2 Clmn Va Lcp Cmbn Rds Rpl .111.731 - [id number] Implanted:Qt y: 1 on 02/07/2023 by Cameron Trejo MD at [facility] Plate Left: Arm [email or web address] 731 / / Screw Bn 26mm 2.4mm St Lck Va Strdr Ss T8 Ns Dist Rds Plt Sy Rpl 210.126 - [id number] Implanted:Qt y: 2 on 02/07/2023 by Cameron Trejo MD at [facility] Screw Left: Arm [email or web address] .126 / / Screw Bn 16mm 2.7mm [address] Strdr Candido Ss Ped T8 Ns Mdlr Mn Rpl Special [id number] - [id number] Implanted:Qt y: 1 on 02/07/2023 by Cameron Trejo MD at [facility] Screw Left: Arm [email or web address] .876 / / Screw Bn 40mm 5mm Lp Intnl Hex Fem Trgn Im Nl Sys - [id number] Implanted:Qt y: 1 on 02/07/2023 by Cameron Trejo MD at [facility] Screw Left: Femur [employer] [id number] / / Screw Bn 16mm 2.4mm St Lck Va Strdr Ss T8 Ns Dist Rds Plt Sy Rpl 02.210.116 - [id number] Implanted:Qt y: 1 on 02/07/2023 by Cameron Trejo MD at [facility] Screw Left: Arm [email or web address] .116 / / Screw Bn 18mm 2.4mm St Lck Va Strdr Ss T8 Ns Dist Rds Plt Sy Rpl 02.210.118 - [id number] Implanted:Qt y: 1 on 02/07/2023 by Cameron Trejo MD at [facility] Screw Left: Arm [employer] .118 / / Screw Bn 22mm 2.4mm St Lck Va Strdr Ss T8 Ns Dist Rds Plt Sy Rpl 02.210.122 - [id number] Implanted:Qt y: 1 on 02/07/2023 by Cameron Trejo MD at [facility] Screw Left: Arm [employer] .122 / / Screw Bn 24mm 2.4mm St Lck Va Strdr Ss T8 Ns Dist Rds Plt Sy Rpl Special [id number]+02.21 0.124 - [id number] Implanted:Qt y: 2 on 02/07/2023 by Cameron Trejo MD at [facility] Screw Left: Arm DEPUY SYN[employer]ES [employer] 124 / / Explanted Type Area Soil Fertility Specialist Device Identifier Shelf Expiration Date Model / Serial / Lot Wire Fx Krsh 1.25mm 150mm Troc Pnt Ss Ns Rpl Special [id number] - [id number] Explanted:Qty : 2 on 02/07/2023 at [facility] Orthopedic Implant Left: Arm [email or web address] 292.12 / / Wire Fx Krsh 1.6mm 150mm Troc Pnt Rpl Specials [id number] - [id number] Explanted:Qty : 2 on 02/07/2023 at [facility] Orthopedic Implant Left: Arm [email or web address] 292.16 / / Insurance [facility]ICARE [facility] Advance Directives * Full Code (Latest Code Status on File) Date Activated Date Inactivated Comments 02/06/2023 8:25 PM 02/11/2023 4:28 PM Care Teams Communication Studies Professor Relationship Specialty Start Date End Date Ernesto Bundy MD PCP - General 05/29/18
--- OUTSIDE RECORDS SUMMARY | 2025-04-05 08:45 | XMS_ITS | Patient Health Record ---
Author Organization The [facility] in [place] Address [address] [place] [address] Care Team Providers Care Innovation Analyst Name Role Phone Hung Bundy Primary Care Provider Mindy Steele [phone] Allergies Allergen (clinical drug ingredient) Drug/Non Drug Allergy documented on EMR Reaction Allergy Type Onset Date Status Substance with sulfonamide structure and antibacterial mechanism of action (substance) Sulfa Antibiotics rash Drug Allergy Active Results Component Value Reference Range Notes GLYCOHEMOGLOBIN A1C Reviewed date:07/10/2024 08:36:12 PM Interpretation: Performing Lab: Notes/Report: [facility] , Glycohemoglobin A1C 10.5 4.5-6.2 % ADA RECOMMENDED LIMIT 4.0 - 6.0 ACTION SUGGESTED > 7.0 ADA THERAPEUTIC TARGET < 7.0 Estimated Average Glucose 255 Performing Lab: see note ML - The [facility] LB PROF CHEM 8 (BAS METB) Reviewed date:07/31/2024 08:01:52 PM Interpretation: Performing Lab: Notes/Report: [facility] , Sodium 141 136-145 mmol/L Potassium 4.5 3.5-5.1 mmol/L Chloride 102 98-107 mmol/L Carbon Dioxide 28.6 21.0-32.0 mmol/L Anion Gap 14.9 Glucose 353 74-106 mg/dL Blood Urea Nitrogen 24.0 7.0-18.0 mg/dL Creatinine 1.46 0.70-1.30 mg/dL Estimated GFR ( Maryuri 56 >=60 mL/min/1.73m 2 Estimated GFR (Non- Theresa 47 >=60 mL/min/1.73m 2 BUN Creatinine Ratio 16.4 Calcium 8.8 8.5-10.1 mg/dL Performing Lab: see note ML - [facility] LB BNP Reviewed date:07/31/2024 08:01:52 PM Interpretation: Performing Lab: Notes/Report: [facility] , NT Pro B Type Natriuretic Pept 899.0 <=1800.0 pg/mL Performing Lab: see note ML - [facility] LB TSH Reviewed date:07/10/2024 08:36:12 PM Interpretation: Performing Lab: Notes/Report: [facility] , Thyroid Stimulating Hormone 1.019 0.358-3.740 uIU/mL Performing Lab: see note - [facility] LB T4 Reviewed date:07/10/2024 08:36:12 PM Interpretation: Performing Lab: Notes/Report: [facility] , T4 Thyroxine 9.20 4.50-12.10 ug/dL Performing Lab: see note ML - [facility] LB PSA SCREENING Reviewed date:07/10/2024 08:36:12 PM Interpretation: Performing Lab: Notes/Report: [facility] , Prostate Specific Antigen Scrn 0.63 <=4.00 ng/mL Performing Lab: see note - [facility] LB PROF 14(COMP METB) Reviewed date:07/10/2024 08:36:12 PM Interpretation: Performing Lab: Notes/Report: [facility] , Sodium 139 136-145 mmol/L Potassium 5.0 3.5-5.1 mmol/L Chloride 102 98-107 mmol/L Carbon Dioxide 28.8 21.0-32.0 mmol/L Anion Gap 13.2 Glucose 275 74-106 mg/dL Blood Urea Nitrogen 23.0 7.0-18.0 mg/dL Creatinine 1.47 0.70-1.30 mg/dL Estimated GFR ( Maryuri 56 >=60 mL/min/1.73m 2 Estimated GFR (Non- Theresa 46 >=60 mL/min/1.73m 2 BUN Creatinine Ratio 15.6 Calcium 9.4 8.5-10.1 mg/dL Bilirubin Total 0.8 0.2-1.0 mg/dL Aspartate Amino Transferase 13 15-37 U/L Alanine Aminotransferase 19 16-63 U/L Alkaline Phosphatase 82 46-116 U/L Total Protein 7.0 6.4-8.2 g/dL Albumin Level 3.1 3.4-5.0 g/dL Globulin 3.9 Albumin Globulin Ratio 0.8 Performing Lab: see note ML - [facility] LB LIPID PROFILE Reviewed date:07/10/2024 08:36:12 PM Interpretation: Performing Lab: Notes/Report: [facility] , Triglycerides 225 <=150 mg/dL Cholesterol 157 <=200 mg/dL HDL Cholesterol 39 40-60 mg/dL <40 mg/dl - HIGH CARDIOVASCULAR RISK > or =60 mg/dl - LOW CARDIOVASCULAR RISK LDL Cholesterol Calculated 73.0 >190 mg/dl VERY HIGH <100 mg/dl OPTIMAL 100-129 mg/dl NEAR OR ABOVE OPTIMAL 130-159 mg/dl BORDERLINE HIGH 160-189 mg/dl HIGH VLDL CHOLESTEROL 45.0 Chol HDL Ratio 4.0 7.1 - 11.0 MODERATE RISK 3.3 - 4.4 LOW RISK >11.0 HIGH RISK 4.4 - 7.1 AVERAGE RISK Performing Lab: see note ML - [facility] LB FREE T3 Reviewed date:07/10/2024 08:36:12 PM Interpretation: Performing Lab: Notes/Report: [facility] , Free T3 2.45 2.18-3.98 pg/mL Performing Lab: see note ML - [facility] LB CBC AUTO DIFF Reviewed date:07/10/2024 08:36:12 PM Interpretation: Performing Lab: Notes/Report: [facility] , White Blood Count 7.0 4.0-11.0 10 3/uL Red Blood Count 3.56 4.70-6.10 10 6/uL Hemoglobin 11.4 14.0-18.0 g/dL Hematocrit 34.6 42.0-54.0 % Mean Corpuscular Volume 97.2 80.0-94.0 fL Mean Corpuscular Hemoglobin 32.0 25.9-34.0 pg Mean Corpuscular HGB Conc 32.9 29.9-35.2 g/dL Red Cell Distribution Width 13.2 11.0-15.0 % Platelet Count 278 150-450 10 3/uL Mean Platelet Volume 9.6 9.5-13.5 fL Neutrophils Percent Auto 78.8 43.0-75.0 % Lymphocytes Percent Auto 11.3 20.5-60.0 % Monocytes Percent Auto 7.3 1.7-12.0 % Eosinophils Percent Auto 1.6 0.9-7.0 % Basophils Percent Auto 0.6 0.2-2.0 % Immature Granulocytes Pct Auto 0.4 0.0-0.5 % Neutrophils Absolute Auto 5.5 1.4-6.5 10 3/uL Lymphocytes Absolute Auto 0.8 1.2-3.8 10 3/uL Monocytes Absolute Auto 0.5 0.3-0.8 10 3/uL Eosinophils Absolute Auto 0.1 0.0-0.7 10 3/uL Basophils Absolute Auto 0.0 0.0-0.1 10 3/uL Immature Granulocytes Abs Auto 0.03 0.00-0.03 10 3/uL Performing Lab: see note ML - [facility] CA echo doppler complete Reviewed date:05/16/2024 07:15:23 PM Interpretation: Performing Lab: Notes/Report: Source Facility: [place] [address] Cardiology Report Signed Patient: LUCIANA BUENROSTRO MR#: [id number] : 1945 Acct:[id number] Age/Sex: 78 / M ADM Date: 05/15/24 Loc: CARD Attending Dr: PATY ACHARYA Ordering Physician: PATY ACHARYA Date of Service: 05/15/24 Procedure(s): CA echo doppler complete Accession Number(s): [id number] cc: PATY ACHARYA; Ernesto Bundy M.D. Patient Name: LUCIANA BUENROSTRO MR#: [id number] : 1945 Exam Date: 05/15/2024 Ordering Doctor: PATY ACHARYA M.D. ECHOCARDIOGRAM REPORT PROCEDURE: CA ECHO DOPPLER COMPLETE INDICATIONS: Dyspnea on exertion, atrial fibrillation, hypertension, diabetes COMPARISON: None. DESCRIPTION: COMPLETE ECHOCARDIOGRAM Real-time transthoracic echocardiography with 2D, M-mode, spectral and color flow Doppler performed. QUALITY: Technical quality was good. LEFT VENTRICLE: Normal chamber size. Normal left ventricular wall thickness. LV EF: Normal left ventricular ejection fraction, (>55%). DIASTOLIC: Not adequately assessed due to heart rhythm. ATRIAL SEPTUM: Visually appears intact. LEFT ATRIUM: Mild dilatation. RIGHT ATRIUM: Moderate dilatation. RIGHT VENTRICLE: Normal size. Normal right ventricular systolic function. TRICUSPID VALVE: Normal mobility and thickness. No stenosis with trivial regurgitation. Pulmonary pressure can not be estimated due to inadequate TR. MITRAL VALVE: Normal mobility and thickness. No evidence of mitral valve stenosis. There is no mitral annular calcification. No mitral regurgitation. AORTIC VALVE: Normal trileaflet appearance. Mildly calcified aortic valve. Mildly diminished mobility. No evidence of aortic valve stenosis. DVI 0.6. No aortic regurgitation. AORTIC ROOT: Normal diameter and appearance. Ascending aorta is normal in size PULMONIC VALVE: Not well visualized. PERICARDIUM: No evidence of pericardial effusion. IVC: No Collapes with inspirations. IVC is normal in dilated. RAP 15 mmHg. PLEURA: CONCLUSION: Normal chamber size. Normal left ventricular wall thickness. Normal left ventricular ejection fraction, (>55%). Jessie aortic valve sclerosis without stenosis Biatrial enlargement No valvular abnormalities Dilated IVC without respiratory collapse C/W RAP 15 mmHg Adult Echocardiography Procedure Report Left Ventricle LVEDD (3.7 - 5.6 cm): 4.45 cm LVESD (2.2 - 4.0 cm): 3.83 cm LVIVS thickness (0.6 - 1.2 cm): 1.10 cm LVPW thickness (0.5 - 1.0 cm): 1.14 cm LVOT Max Gradient: 2.65 mm[Hg], 1.97 mm[Hg] LVOT Area (cm2): 0.76 m/s Peak Velocity (LVOT): 0.81 m/s, 0.70 m/s Mean Velocity (LVOT): 0.51 m/s LVOT Diameter 2.20 cm Left Atrium LA Volume Index (2D A2C): 41.78 ml/m2 Left Atrium Systolic Dimension: 5.02 cm Mitral Valve Mitral Valve E-Wave Peak Velocity: 1.26 m/s Right Ventricle Aorta AO Root Diam: 3.48 cm Ascending Ao Diam: 3.48 cm Aortic Valve AoV Area (Peak Omar): 2.43 cm2, 3.05 cm2, 1.96 cm2 AoV Area (VTI): 2.32 cm2, 3.07 cm2, 1.82 cm2 Peak Velocity(Antegrade Flow): 1.01 m/s, 1.36 m/s Peak Gradient(Antegrade Flow): 4.10 mm[Hg], 7.35 mm[Hg] Mean Velocity(Antegrade Flow): 0.65 m/s, 0.91 m/s Mean Gradient(Antegrade Flow): 1.96 mm[Hg], 3.96 mm[Hg] Velocity Time Integral: 19.68 cm, 29.25 cm Tricuspid Valve Peak Velocity (Regurgitant Flow): 3.06 m/s Pulmonic Valve Peak Velocity: 1.14 m/s Peak Gradient: 6.18 mm[Hg], 4.82 mm[Hg], 4.61 mm[Hg] Right Atrium Right Atrium Systolic Pressure: 107.27 ml, 107.27 ml Dictated by: Osmani Martinez MD on 05/16/2024 at 14:04 Approved by: Osmani Martinez MD on 05/16/2024 at 14:18 Dictated By: Osmani Martinez M.D. Signed By: 05/16/24 1419 DD/ 1418 TD/TT: Shoe Reconditioner: [place] [address] Cardiology Report Signed Patient: LUCIANA BUENROSTRO MR#: [id number] : 1945 Acct:[id number] Age/Sex: 78 / M ADM Date: 05/15/24 Loc: CARD Attending Dr: RE ACHARYA Ordering Physician: PATY ACHARYA Date of Service: 05/15/24 Procedure(s): CA ech o doppler complete Accession Number(s): [id number] cc: HILDA ACHARYA; Ernesto Bundy M.D. Patient Name: LUCIANA BUENROSTRO MR#: [id number] : 1945 Exam Date: 05/15/2024 Ordering Doctor: DAVID ACHARYA M.D. ECHOCARDIOGRAM REPORT PROCEDURE: CA ECHO DOPPLER COMPLETE INDICATIONS: Dyspnea on exertion, atrial fibrillation, hypertension, diabetes COMPARISON: None. DESCRIPTION: COMPLET E ECHOCARDIOGRAM Real-time transthoracic echocardiography wit h 2D, M-mode, spectral and color flow Doppler performed. QUALITY: Technical quality was good. LEFT VENTRICLE: Norm al chamber size. Normal left ventricular wall thickness. LV EF: Normal left ventricular ejection fraction, (>55%). DIASTOLIC: Not adequately assessed due to heart rhythm. ATRIAL SEPTUM: Visua lly appears intact. LEFT ATRIUM: Mild dilatation. RIGHT ATRIUM: Modera te dilatation. RIGHT VENTRICLE: Nor mal size. Normal right ventricular systolic function. TRICUSPID VALVE: Nor mal mobility and thickness. No stenosis with trivial regurgitation. Pulmo nary pressure can not be estimated due to inadequate TR. MITRAL VALVE: Normal mobility and thickness. No evidence of mitral valve stenosis. There is n o mitral annular calcification. No mitral regurgitation. AORTIC VALVE: Normal trileaflet appearance. Mildly calcified aortic valve. Mildly diminished mobility. No evidence of aortic valve stenosis. DVI 0.6. No aortic regurgitation. AORTIC ROOT: Normal diameter and appearance. Ascending aorta is normal in size PULMONIC VALVE: Not well visualized. PERICARDIUM: No evid ence of pericardial effusion. IVC: No Collapes wit h inspirations. IVC is normal in dilated. RAP 15 mmHg. PLEURA: CONCLUSION: Normal chamber size. Normal left ventricular wall thickness. Normal left ventricu lar ejection fraction, (>55%). Jessie aortic valve sclerosis without stenosis Biatrial enlargement No valvular abnormalities Dilated IVC without respiratory collapse C/W RAP 15 mmHg Adult Echocardiograp hy Procedure Report Left Ventricle LVEDD (3.7 - 5.6 cm) : 4.45 cm LVESD (2.2 - 4.0 cm) : 3.83 cm LVIVS thickness (0.6 - 1.2 cm): 1.10 cm LVPW thickness (0.5 - 1.0 cm): 1.14 cm LVOT Max Gradient: 2 .65 mm[Hg], 1.97 mm[Hg] LVOT Area (cm2): 0.7 6 m/s Peak Velocity (LVOT) : 0.81 m/s, 0.70 m/s Mean Velocity (LVOT) : 0.51 m/s LVOT Diameter 2.20 cm Left Atrium LA Volume Index (2D A2C): 41.78 ml/m2 Left Atrium Systolic Dimension: 5.02 cm Mitral Valve Mitral Valve E-Wave Peak Velocity: 1.26 m/s Right Ventricle Aorta AO Root Diam: 3.48 cm Ascending Ao Diam: 3.48 cm Aortic Valve AoV Area (Peak Omar): 2.43 cm2, 3.05 cm2, 1.96 cm2 AoV Area (VTI): 2.32 cm2, 3.07 cm2, 1.82 cm2 Peak Velocity(Antegr mc Flow): 1.01 m/s, 1.36 m/s Peak Gradient(Antegr mc Flow): 4.10 mm[Hg], 7.35 mm[Hg] Mean Velocity(Antegr mc Flow): 0.65 m/s, 0.91 m/s Mean Gradient(Antegr mc Flow): 1.96 mm[Hg], 3.96 mm[Hg] Velocity Time Integr al: 19.68 cm, 29.25 cm Tricuspid Valve Peak Velocity (Regurgitant Flow): 3.06 m/s Pulmonic Valve Peak Velocity: 1.14 m/s Peak Gradient: 6.18 mm[Hg], 4.82 mm[Hg], 4.61 mm[Hg] Right Atrium Right Atrium Systoli c Pressure: 107.27 ml, 107.27 ml Dictated by: Osmani Martinez MD on 05/16/2024 at 14:04 Approved by: Osmani Martinez MD on 05/16/2024 at 14:18 Dictated By: Osmani Martinez M.D. Signed By: 05/16/24 1419 DD/ 1418 TD/TT: Shoe Reconditioner: PROF JLUIS Salinas ([facility]) Reviewed date:01/14/2025 02:59:48 PM Interpretation: Performing Lab: Notes/Report: [facility] , Sodium 137 136-145 mmol/L Potassium 4.7 3.5-5.1 mmol/L Chloride 99 98-107 mmol/L Carbon Dioxide 27.7 21.0-32.0 mmol/L Anion Gap 15.0 Glucose 340 74-106 mg/dL Blood Urea Nitrogen 25.0 7.0-18.0 mg/dL Creatinine 1.74 0.70-1.30 mg/dL Estimated GFR ( Maryuri 46 >=60 mL/min/1.73m 2 Estimated GFR (Non- Theresa 38 >=60 mL/min/1.73m 2 BUN Creatinine Ratio 14.4 Calcium 9.0 8.5-10.1 mg/dL Performing Lab: see note ML - [facility] Reason For Referral No Information Medications Medication SIG (Take, Route, Frequency, Duration) Notes Start Date End Date Status Acetaminophen 500 MG 1 capsule as needed Orally every 6 hrs Active Pen [place] 32G X 4 MM Use 1 pen needle on insulin pen twice daily for 90 days Dx: E11.9 11/17/2023 Active Omeprazole 20 MG TAKE 1 CAPSULE ONCE DAILY 30 MINUTES BEFORE MORNING MEAL for 90 Active metFORMIN HCl 1000 MG TAKE 1 TABLET TWIC E DAILY WITH MEALS for 90 Active Magnesium Oxide 400 MG 1 tablet as neede d BID Active Lisinopril 10 MG TAKE 1 TABLET ONCE DAILY for 90 Active Liothyronine Sodium 5 MCG 1 tablet on an empty stomach Orally Once a day Active Labetalol HCl 100 MG TAKE 1 TABLET TWICE A DAY for 90 Active Ketoconazole 2 % 1 application Externally Twice a day for 14 01/06/2024 Active Insulin Syringe 30G X 5/16 0.5 ML Use 1 needle twice daily to administer insulin for 90 days Dx: E11.9 03/27/2024 Active hydrALAZINE HCl 100 MG TAKE 1 TABLET 3 TIMES A DAY for 90 Active glipiZIDE 10 MG TAKE 3 TABLETS ONCE DAILY for 90 days Active Furosemide 40 MG 1 tablets Orally bid for 30 days Active Ferrous Sulfate 325 (65 Fe) MG 1 tablet Orally BID Active Eliquis 2.5 MG Take 1 tablet Orally twice daily for 90 days Active Vitamin D 25 MCG (1000 UT) 1 tablet Orally Once a day Active DULoxetine HCl 60 MG 1 capsule Orally Once a day for 90 days Active Cetirizine HCl 10 MG 1 tablet Orally Onc e a day Active Blood Glucose Meter test blood meter for 30 days 12/30/2023 Active Triamcinolone Acetonide 0.1 % 1 application Externally Twice a day for 30 days 01/06/2024 Active Bedside Commode -- Use As Directed bariatric dx S7200.2A q day for 365 days Active Timolol Maleate 0.25 % 1 gtt each eye bid Active Basaglar KwikPen 100 UNIT/ML Inject 50 units Subcutaneous BID DX E11.9 for 90 days 10/10/2024 Active Test Strips/Lancets - test blood sugar daily for 1 days 12/30/2023 Active Atorvastatin Calcium 20 MG TAKE 1 TABLET ONCE DAILY for 90 Active Test Strips - 1 test strip via meter once daily DX E11.9 for 90 days Patient uses one touch ultra strips- thank you! 09/21/2023 Active Aspirin 81 81 MG 1 tablet Orally Once a day Active Spironolactone 25 MG TAKE 1 TABLET ONCE DAILY for 90 Active amLODIPine Besylate 10 MG 1 tablet Orally Once a day for 90 days Active Potassium Chloride ER 10 MEQ 1 tablet with food Orally three times daily for 30 days 03/26/2024 Active Immunizations Vaccine Route Administration Date Status Comme nts Flu, Fluad (9494-8018) (47211) 65 yrs+, single-dose syringe IM Intramuscular 07/22/2023 Administered Flu, Fluad (10131) 65 yrs and older, single-dose syringe IM Intramuscular 07/03/2024 Administered Social History Tobacco Use: Social History Observation Description Date Details (start date - stop date) Never Smoker NA - NA Tobacco Use/Smoking Question Answer Notes Patient is a nonsmoker Alcohol Screen (Audit-C) Question Answer Notes Did you have a drink containing alcohol in the p ast year? No Points 0 Interpretation Negative AUDIT-C (Standard) Question Answer Notes Did you have a drink containing alcohol in the p ast year? 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) Active confirmed Problem 2358377370147933 Primary osteoarthritis, right ankle and foot (M19.071) Active confirmed Problem 603288040 Fracture of unspecified part of neck of left femur, initial encounter for closed fracture (S72.002A) Active confirmed Problem Hyperlipidemia (43667117) Hyperlipidemia (E78.5) Active confirmed Problem Morbid obesity (499645643) Morbid obesity (E66.01) Active confirmed Problem Sleep apnea (62471387) Apnea, sleep (G47.30) Active confirmed Problem Atrial fibrillation (disorder) (83833584) Afib (I48.91) Active confirmed Problem Edema (94927691) Edema (R60.9) Active confirmed Problem 956276916 Bladder outlet obstruction (N32.0) Active confirmed Problem Hyperglycemia due to type 2 diabetes mellitus (508124540056203) Diabetes mellitus with hyperglycemia (E11.65) Active confirmed Problem Essential hypertension (13487124) BP (high blood pressure) (I10) Active confirmed Problem Diabetes mellitus (43670719) Diabetes mellitus (E11.9) Active confirmed Vital Signs Heart Rate 84 /min 07/16/2024 Temperature 98 degrees Fahrenheit 07/16/2024 Oximetry 97 % 07/16/2024 Blood pressure diastolic 82 mm Hg 04/03/2025 Blood pressure systolic 142 mm Hg 04/03/2025 Encounters Encounter Location Date Provider Diagnosis [address] [address] 12/06/2024 Hung Hoy [address] [address] 12/17/2024 Hung Hoy Diabetes mellitus with hyperglycemia E11.[address] [address] 01/14/2025 Hung Hoy Decreased renal function N28.[address] [address] 07/10/2024 Hung Hoy Diabetes mellitus with hyperglycemia E11.[address] [address] 07/31/2024 Hung Hoy [address] [address] 10/10/2024 Hung Hoy Diabetes mellitus with hyperglycemia E11.[address] [address] 10/23/2024 Hung Zavaletay [facility] ([facility]) [address] [facility] [facility] [place] [address] 10/25/2024 Mindy Steele [facility] (PODIAT[facility]) [address] [facility] [address] 10/25/2024 Mindy Steele [facility] ([facility]OD[facility]) [address] [place] [address] 04/16/2024 Mindyedgardo Steele Diabetes mellitus with hyperglycemia E11.65 ; Primary osteoarthritis, right ankle and foot M19.071 and Edema R60.9 [facility] (PODIAT[facility]) [address] [place] [address] [place] [address] 07/16/2024 Mindy Altamiranoen Diabetes mellitus with hyperglycemia E11.[address] [address] 07/03/2024 Hung Hoy Diabetes mellitus with hyperglycemia E11.65 ; Apnea, sleep G47.30 ; Hypomagnesemia E83.42 ; Hyperlipidemia E78.5 and Encounter for immunization Z23 [address] [address] 10/03/2024 Hung Bundy Acute bronchitis, unspecified organism J20.9 ; Diabetes mellitus with hyperglycemia E11.65 ; Edema R60.9 and Hyperlipidemia E78.[address] [address] 01/02/2025 Hung Hoy Acute combined systolic (congestive) and diastolic (congestive) heart failure I50.41 ; Diabetes mellitus with hyperglycemia E11.65 ; BP (high blood pressure) I10 ; Apnea, sleep G47.30 and Morbid obesity E66.[address] [address] 04/03/2025 Hung Hoy Acute combined systolic (congestive) and diastolic (congestive) heart failure I50.41 ; Diabetes mellitus with hyperglycemia E11.65 ; Apnea, sleep G47.30 and Afib I48.91 Assessments Encounter Date Diagnosis (ICD Code) Assessment Notes Treatment Notes Treatment Clinical Notes Section Notes 07/10/2024 Diabetes mellitus with hyperglycemia (ICD-10 - E11.65) 10/10/2024 Diabetes mellitus with hyperglycemia (ICD-10 - E11.65) 12/17/2024 Diabetes mellitus with hyperglycemia (ICD-10 - E11.65) 01/14/2025 Decreased renal function (ICD-10 - N28.9) 04/03/2025 Acute combined systolic (congestive) and diastolic (congestive) heart failure (ICD-10 - I50.41) 04/16/2024 Diabetes mellitus with hyperglycemia (ICD-10 - E11.65) 04/16/2024 Primary osteoarthritis, right ankle and foot (ICD-10 - M19.071) 07/03/2024 Diabetes mellitus with hyperglycemia (ICD-10 - E11.65) 07/03/2024 Apnea, sleep (ICD-10 - G47.30) 07/16/2024 Diabetes mellitus with hyperglycemia (ICD-10 - E11.65) 10/03/2024 Acute bronchitis, unspecified organism (ICD-10 - J20.9) Rest and drink more liquids, especially water. You may use a humidifier or vaporizer to help keep the drainage moist. Nekq-tnc-aogfjav Nasal Saline may help the stuffy and runny nose. Use Ibuprofen and or Tylenol as needed for fever, chills, body aches or pain. Children 5 years old should not be given ajqf-wnj-ftfkera cough and cold medications such as guaifenesin and dextromethorphan. If you're over age 5, you may try uxtf-fnw-cssyntl cold medications such as guaifenesin and dextromethorphan, or multi-symptom cold reliever such as Dayquil to help reduce the symptoms. Antibiotics have been prescribed. You should take these until completed and follow the directions. Antibiotics can sometimes cause upset stomach, and in rare cases, serious allergic reactions or serious gastrointestinal problems. If you start having severe abdominal pain, severe vomiting, or bloody diarrhea, you should be reevaluated by your physician or urgent care immediately. Follow up with your Primary Care Provider or return to clinic if symptoms do not improve within 3-5 days. If you develop severe symptoms such as shortness of breath, repeated vomiting, coughing up blood, or chest pain you should go to the emergency room or call 911 10/03/2024 Diabetes mellitus with hyperglycemia (ICD-10 - E11.65) 01/02/2025 Acute combined systolic (congestive) and diastolic (congestive) heart failure (ICD-10 - I50.41) 01/02/2025 Diabetes mellitus with hyperglycemia (ICD-10 - E11.65) 01/02/2025 BP (high blood pressure) (ICD-10 - I10) 10/03/2024 Edema (ICD-10 - R60.9) 07/03/2024 Hypomagnesemia (ICD-10 - E83.42) 04/16/2024 Edema (ICD-10 - R60.9) 04/03/2025 Diabetes mellitus with hyperglycemia (ICD-10 - E11.65) 04/03/2025 Apnea, sleep (ICD-10 - G47.30) 07/03/2024 Hyperlipidemia (ICD-10 - E78.5) 10/03/2024 Hyperlipidemia (ICD-10 - E78.5) 01/02/2025 Apnea, sleep (ICD-10 - G47.30) 01/02/2025 Morbid obesity (ICD-10 - E66.01) 07/03/2024 Encounter for immunization (ICD-10 - Z23) 04/03/2025 Afib (ICD-10 - I48.91) Plan Of Treatment Pending Test Test Name Order Date CMP (COMPLETE METABOLIC PANEL) 3 CMP (COMPLETE METABOLIC PANEL) 4 HEMOGLOBIN A1C (GLYCO) 07/03/2024 HEMOGLOBIN A1C (GLYCO) 04/03/2025 IRON, TOTAL 04/03/2025 LIPID PANEL (CHOL/TRIG/HDL/LDL) 06/07/20 23 LIPID PANEL (CHOL/TRIG/HDL/LDL) 07/03/20 24 CBC WITH DIFF 07/03/2024 CBC WITH DIFF 06/07/2023 PSA, PROSTATE-SPECIFIC ANTIGEN 3 URIC ACID 06/07/2023 US Renals and Bladder 12/28/2022 BMP - Basic Metabolic Panel 01/14/2025 PSA, TOTAL 07/03/2024 BNP 04/03/2025 CULTURE URINE 12/28/2022 UA RANDOM W or MICROSCOPIC 12/28/2022 THYROID PANEL (T4/TSH/FREE T3) 4 THYROID PANEL (T4/TSH/FREE T3) 5 THYROID PANEL (T4/TSH/FREE T3) 3 CMP (COMP MET GILL) w/eGFR CKD-EPI 2024 CBC WITH DIFF 04/03/2025 Next Appt Details Provider Name:Hung Bundy, 10:15:00 AM, [address] [place], [address], Insurance Providers Payer Name Payer Address Payer Phone Subscriber Number Group Number Insured Name Patient Relationship to Insured Coverage Start Date Coverage End Date [place] [address] [place] [address] [id number] Luciana Hernández Self - patient is the insured 0 [facility] [address] [place] [address] [phone] [id number] Luciana Hernández Self - patient is the insured 3 Medical (General) History Medical History History ICD Code Atrial fibrillation edema nail disorder cardiac murmur diabetes flat foot' hyperlipidemia hypertension neoplasm obesity skin symptoms Surgical History Surgery Date(Month/Year) Tonsils Hernia mesh x 2 Hammertoe bilateral Left Knee replacement Cyst removal left wrist with pin Left Abel and pin in Hip Hospitalization History Reason Date(Month/Year) FALL- Broken Hip and wrist 02/09/2023
--- OUTSIDE RECORDS SUMMARY | 2025-04-05 08:45 | XMS_ITS | Clinical Summary ---
Author Organization [facility] Address [facility] [place] [id number] Care Team Providers Care Edger Saw Operator Name Role Phone Ernesto Bundy MD Primary Care Provider [phone] Allergies Active Allergy Reactions Criticality Noted Date Comments Sulfa (Sulfonamide Antibiotics) Rash 11/2014 Medications silver sulfADIAZINE (SILVADENE) 1 % cream Apply 1 application to affected area once daily. Active labetalol (TRANDATE) 100 mg tablet Take 100 mg by mouth three times daily. Active diclofenac, EC, (VOLTAREN) 75 mg EC tablet Take 75 mg by mouth twice daily. Active Clindamycin Phosphate (CLEOCIN T) 1 % lotion Apply 1 application to affected area twice daily. Active mometasone (ELOCON) 0.1 % cream Apply 1 application to affected area twice daily. Active hydrALAZINE (APRESOLINE) 100 mg tablet Take 100 mg by mouth three times daily. Active cetirizine (ZYRTEC) 10 mg tablet Take 10 mg by mouth once daily. Active Fosinopril Sodium 40 mg tablet Take 40 mg by mouth once daily. Take 2 tabs po daily Active labetalol (TRANDATE) 300 mg tablet Take 300 mg by mouth three times daily. Take along with 100 mg tabs tid Active atorvastatin (LIPITOR) 20 mg tablet Take 20 mg by mouth once daily. Active metFORMIN (GLUCOPHAGE) 1,000 mg tablet Take 1,000 mg by mouth twice daily with meals. Active pioglitazone (ACTOS) 15 mg tablet Take 15 mg by mouth once daily. Active aspirin, enteric coated (ASPIRIN, ENTERIC COATED) 325 mg EC tablet Take 325 mg by mouth once daily. Active Multivitamin capsule Take 1 capsule by mouth once daily. Active latanoprost (XALATAN) 0.005 % ophthalmic solution Use 1 Drop in both eyes daily at bedtime. Active timolol maleate (TIMOPTIC) 0.5 % dpet Use 1 Drop in both eyes every morning. Active furosemide (LASIX) 20 mg tablet Take 20 mg by mouth once daily. Take 2 tabs po daily Active spironolactone (ALDACTONE) 25 mg tablet Take 25 mg by mouth once daily. Take 2 tabs po daily Active amLODIPine (NORVASC) 10 mg tablet Take 10 mg by mouth once daily. Active Family History Medical History Relation Comments Hypertension Brother 4 Coronary Artery Disease Brother 5 Cancer Father Hypertension Father Cancer Mother Hypertension Mother Stroke Mother Hypertension Sister 2 Relation Status Comments Brother 1 Alive Brother 2 Alive Brother 3 Alive Brother 4 Brother 5 Father Mother Sister 1 Alive Sister 2 Social History Tobacco Use Types Packs/Day Years Used Date Smoking Tobacco: Former Smokeless Tobacco: Never Alcohol Use Standard Drinks/Week Comments No 0 (1 standard drink = 0.6 oz pur e alcohol) Sex and Gender Information Value Date Recorded Sex Assigned at Not on file Legal Sex Male 10:07 AM EST Gender Identity Not on file Sexual Orientation Not on file Last Filed Vital Signs Vital Sign Reading Time Taken Comments Blood Pressure 158/84 08/14/2015 3:11 PM EST Pulse 84 08/14/2015 3:11 PM EST Temperature 37 C (98.6 F) 08/14/2015 3:11 PM EST Respiratory Rate 16 08/14/2015 3:11 PM EST Oxygen Saturation 96% 08/14/2015 3:11 PM EST Inhaled Oxygen Concentration - - Weight 154.7 kg (341 lb) 08/14/2015 3:11 PM EST Height 180.3 cm (5' 11 ) 08/14/2015 3:11 PM EST Body Mass Index 47.56 08/14/2015 3:11 PM EST Plan of Treatment Health Maintenance Due Date Last Done Comments Anxiety Screening 1962 Depression Screening 1962 DTaP,Tdap,Td Vaccine (1 - Tdap) 1963 Diabetes Screening 1989 Pneumococcal Vaccine: 50+ (1 of 1 - PCV) 1994 Shingrix Vaccine (1 of 2) 1994 RSV Vaccine (1 - 1-dose 75+ series) 2019 Covid-19 Vaccine (1 - season) 2024 Advance Directive Discussion 09/12/2024 Influenza Vaccine (#1) 2025 Insurance MEDICARE [facility] Care Teams Edger Saw Operator Relationship Specialty Start Date End Date Ernesto Bundy MD PCP - General Family Medicine 07/24/15
--- OUTSIDE RECORDS SUMMARY | 2025-04-05 08:45 | XMS_ITS ---
Author Organization [facility] Care Team Providers Care Wildland Firefighter Name Role Phone Fred Modi Unavailable Unavailable Laxmi, Ger Unavailable Unavailable Main Gillis Unavailable Unavailable Marky, Dorota Unavailable Unavailable Allergies and adverse reactions Code CodeSystem Substance Reaction Severity StartDate Concern Status 381822767 SNOMED CT Sulfa Antibiotics Unknown 02/11/2023 active Care Team Name Role Address Phone Organization Dates Main Gillis P[facility] [address] [place], [address], [place] (Office): : [facility] 02/11/2023 - 03/31/2023 Fred Modi [place], [place], Unit States (Office): [facility] 02/11/2023 - 03/31/2023 Ger Laxmi [address] [facility] [address], [place], [address], [place] (Office): : [facility] 02/11/2023 - 03/31/2023 Dorota Negro [address] [place], [address], [place] (Office): : : [facility] 02/11/2023 - 03/31/2023 Immunizations Immunization Status Vaccine Details Vaccine Code CodeSystem Date Notes TB 2 Step Mantoux Skin Test completed tuberculin skin test; unspecified formulation Given intradermally Step 2 of Multi-step with next step required 98 CVX created date: 02/27/2023 consent date: 02/26/2023 administer ed date: 02/21/2023 TB 2 Step Mantoux Skin Test completed tuberculin skin test; unspecified formulation Step 1 of Multi-step with next step required 98 CVX created date: 02/13/2023 consent date: 02/12/2023 administer ed date: 02/12/2023 PPSV23 (Pneumococcal) Dose 1 completed pneumococcal polysaccharide vaccine, 23 valent 33 CVX created date: 02/11/2023 administer ed date: 11/15/2016 Prevnar 13 completed pneumococcal conjugate vaccine, 13 valent 133 CVX created date: 02/11/2023 administer ed date: 12/15/2017 SARS-COV-2 (COVID-19) completed SARS-COV-2 (COVID-19) vaccine, mRNA, spike protein, LNP, bivalent, preservative free, 10 mcg/0.2 mL dose Mfg: Moderna Step 2 of Multi-step with next step required 230 CVX created date: 02/11/2023 administer ed date: 12/03/2020 SARS-COV-2 (COVID-19) completed SARS-COV-2 (COVID-19) vaccine, mRNA, spike protein, LNP, bivalent, preservative free, 10 mcg/0.2 mL dose, janes-sucrose formulation Mfg: Moderna Step 1 of Multi-step with next step required 301 CVX created date: 02/11/2023 administer ed date: 11/06/2020 COVID VACCINE BOOSTER completed SARS-COV-2 (COVID-19) vaccine, mRNA, spike protein, LNP, preservative free, 30 mcg/0.3mL dose Mfg: Pfizer Bivalent 208 CVX created date: 02/11/2023 administer ed date: 01/16/2023 COVID VACCINE BOOSTER completed SARS-COV-2 (COVID-19) vaccine, mRNA, spike protein, LNP, preservative free, 30 mcg/0.3mL dose Mfg: Pfizer Bivalent 208 CVX created date: 02/11/2023 administer ed date: 06/19/2022 COVID Vaccine 3rd Dose for immunocompromised completed SARS-COV-2 (COVID-19) vaccine, mRNA, spike protein, LNP, preservative free, 30 mcg/0.3mL dose Mfg: Moderna 208 CVX created date: 02/11/2023 administer ed date: 08/18/2021 COVID Vaccine 4th dose immunocompromised completed SARS-COV-2 (COVID-19) vaccine, mRNA, spike protein, LNP, preservative free, 30 mcg/0.3mL dose Mfg: [employer] 208 CVX created date: 02/11/2023 administer ed date: 05/26/2021 Mental Status Section Date Assessment Total Score Description 03/31/2023 BIMS 15 cognitively int act CAM 0 No delirium ind icated PHQ-9 01 minimal depress ion 02/16/2023 BIMS 15 cognitively int act CAM 0 No delirium ind icated PHQ-9 01 minimal depress ion Problems Problem # Description Date of onset Resolved Date Code CodeSystem Concern Status 1 CELLULITIS OF UNSPECIFIED PART OF LIMB 02/11/[address] active 2 ENCOUNTER FOR OTHER SPECIFIED SURGICAL AFTERCARE 02/11/[address] active 3 ESSENTIAL (PRIMARY) HYPERTENSION 02/11/[id number] active 4 FRACTURE OF UNSPECIFIED PART OF NECK OF LEFT FEMUR, SUBSEQUENT ENCOUNTER FOR CLOSED FRACTURE WITH ROUTINE HEALING 02/11/[address] active 5 GASTRO-ESOPHAGEAL REFLUX DISEASE WITHOUT ESOPHAGITIS 02/11/[address] active 6 HYPERLIPIDEMIA, UNSPECIFIED 02/11/[address] active 7 MAJOR DEPRESSIVE DISORDER, SINGLE EPISODE, UNSPECIFIED 02/11/[address] active 8 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 02/11/[id number] active 9 OTHER SPECIFIED ARTHRITIS, UNSPECIFIED SITE 02/11/[address] active 10 SACROCOCCYGEAL DISORDERS, NOT ELSEWHERE CLASSIFIED 02/11/[address] active 11 SPINAL STENOSIS, LUMBAR REGION WITHOUT NEUROGENIC CLAUDICATION 02/11/[address] active 12 SPONDYLOSIS WITHOUT MYELOPATHY OR RADICULOPATHY, LUMBAR REGION 02/11/[id number] active 13 SPONDYLOSIS WITHOUT MYELOPATHY OR RADICULOPATHY, LUMBOSACRAL REGION 02/11/[address] active 14 TYPE 2 DIABETES MELLITUS WITHOUT COMPLICATIONS 02/11/[address] active 15 UNSPECIFIED ASTHMA, UNCOMPLICATED 02/11/[address] active 16 UNSPECIFIED ATRIAL FIBRILLATION 02/11/[id number] active Reason for Referral No Reasons for Referral Entered Social History Social History Observation Description Start Date End Date Code Code System Current Smoking Status Tobacco smoking consumption unknown 132237156 SNOMED CT Sex Assigned At Male 1945 70435-0 [facility] Gender Identity Vital Signs Code Code System Vitals Name Values and Units Timing Information 9279-1 [facility] Respiratory Rate Value=68.0 Units=/m in 03/31/2023 8462-4 [facility] Blood Pressure-Diastolic Value=65 Un its=mmHg 03/31/2023 8480-6 [facility] Blood Pressure-Systolic Woicv=678 Un its=mmHg 03/31/2023 8310-5 [facility] Body Temperature Value=98.2 Units= F 03/31/2023 8867-4 [facility] Heart rate Value=68.0 Units=/min 68733-1 [facility] O2 % BldC Oximetry Value=94.0 Units= % 03/31/2023 75091-8 [facility] Pain Level Value=0.0 03/31/2023 2339-0 [facility] Blood Sugar Value=96.0 Units=mg/dL 03/31/2023 33754-9 [facility] Weight Tgndp=540.2 Units=Lbs 12/2022 8302-2 [facility] Height Value=71.0 Units=Inches 02/11/2023
[2025-04-05 09:32] LABS: Hematocrit 37.8 % (42.0-54.0); Hemoglobin 12.6 g/dL (14.0-18.0); Immature Granulocytes Abs Auto 0.04 10^3/uL (0.00-0.03); Immature Granulocytes Pct Auto 0.6 % (0.0-0.5); Lymphocytes Absolute Auto 1.0 10^3/uL (1.2-3.8); Mean Corpuscular HGB Conc 33.3 g/dL (29.9-35.2); Mean Corpuscular Hemoglobin 31.5 pg (25.9-34.0); Mean Corpuscular Volume 94.5 fL (80.0-94.0); Platelet Count 278 10^3/uL (150-450); Red Blood Count 4.00 10^6/uL (4.70-6.10); White Blood Count 7.2 10^3/uL (4.0-11.0)
[2025-04-05 11:14] LABS: Iron 59.0 ug/dL (65.0-175.0)
[2025-04-05 11:49] LABS: Alanine Aminotransferase 21 U/L (16-63); Albumin Globulin Ratio 0.9; Albumin Level 3.4 g/dL (3.4-5.0); Alkaline Phosphatase 90 U/L (46-116); Anion Gap 11.6; Aspartate Amino Transferase 16 U/L (15-37); Blood Urea Nitrogen 18.0 mg/dL (7.0-18.0); Calcium 9.1 mg/dL (8.5-10.1); Carbon Dioxide 30.0 mmol/L (21.0-32.0); Chloride 100 mmol/L (98-107); Estimated GFR (African America >60 (>=60 mL/min/1.73m^2); Estimated GFR (Non-African Ame 57 (>=60 mL/min/1.73m^2); Free T3 2.08 pg/mL (2.18-3.98); Globulin 3.9 g/dL; Glucose 407 mg/dL (74-106); NT Pro B Type Natriuretic Pept 566.0 pg/mL (<=1800.0); Potassium 4.6 mmol/L (3.5-5.1); Sodium 137 mmol/L (136-145); Thyroid Stimulating Hormone 1.111 uIU/mL (0.358-3.740); Total Protein 7.3 g/dL (6.4-8.2)
== END 2025-04-05 08:39 | disposition home or self-care (01) ==
LOC: LAB 08:43
PROVIDERS: PCP Family Medicine; Visit Provider Family Medicine
DX: I11.0 Hypertensive heart disease with heart failure (principal); I50.41 Acute combined systolic (congestive) and diastolic (congestive) heart failure; E11.65 Type 2 diabetes mellitus with hyperglycemia; G47.30 Sleep apnea, unspecified; I48.91 Unspecified atrial fibrillation; D64.9 Anemia, unspecified; R53.83 Other fatigue
CPT/HCPCS: 36415; 80053; 83036; 83540; 83880; 84436; 84443; 84481; 85025